=== PATIENT | female | born 1990 | race Caucasian/White ===

== ENCOUNTER 2023-11-18 08:00 | Outpatient (RCR) | payer MEDICAID, SELFPAY ==
--- NOTE | 2023-11-18 10:10 | BH.SGPN.GN ---
Behaviors/Verbalizations/Mental Status: [Patient was alert and oriented, casually dressed and groomed. Eye contact was good, motor activity normal, speech within normal limits. Affect congruent, mood depressed. Thoughts linear, logical, no signs of hallucinations or delusions. ] Client Response/Progress/Benefit: [ Patient was engaged and open to the discussion and appeared to respond well to the group. Patient used active listening and gave feedback during group discussion. Patient identifies that setting boundaries is a form of self-care. Patient was engaged in the activity of identifying the reasons that setting boundaries is hard. Patient reported that its hard for her because of how it can feel embarrassing to set them in the first place. Patient appeared to benefit from increasing awareness of healthy strategies to improve communication. Patient will continue IOP treatment to improve daily functioning, emotion management, and prevent decompensation] Narrative Note: []
--- NOTE | 2023-11-18 10:37 | BH.MDN ---
Multi-Disciplinary Note Note 45-min Individual: Time Started:: 08:45 Date: 11/18/23 Purpose of session/treatment goals addressed:: The purpose of this session was to gather information on client's mental health hx, current stressors, symptoms, and treatment goals. Another goal was to build rapport. Eye Contact:: Good Motor Activity:: Appropriate Appearance:: Neat and Casual Speech:: Appropriate Mood:: Anxious and Depressed Affect:: Congruent Thoughts:: Linear, Logical and No evidence of hallucinations/delusions noted Staff Interventions:: motivational interviewing, rapport building, strengths perspective, treatment planning, completed risk assessment / safety planning (completed CSSR-S assessment) and goal setting Client Response:: Client responded well to session, open to meeting with therapist. Client stated that she was referred by a prior [facility] client who is friend?s with her mother. Client stated that she moved back to [place] from [place] in early October to live with her parents due to worsening sx of depression and anxiety impacting ability to function at baseline. Client shared she has been struggling with various physical health issues for several years, following getting COVID in 2020. Reports digestive issues, nausea, and extreme fatigue following her illness which impeded her ability to function socially and occupationally. Client reports that around that time she had been experiencing increased relationship tension involving her partner?s ex-girlfriend and child?s mother. This continued to escalate and client did not feel her partner was doing enough to advocate for her, resulting in the relationship ending in early 2022. Client reports that following the break-up she experienced the end of a friendship, as well as the of two other close friends. Shared that her depressive sx and fatigue worsened to the point of losing her job, not really leaving the house and relying on substances to provide energy and motivation to complete daily responsibilities and function at baseline. Client stated her function worsened to the point she felt she would need the support of family and returned to live with her parents. Client reports she had been working with a mindfulness counselor and it was somewhat helpful, but she felt she needed more intensive care. Client is connected with psychiatry services through [facility]. Client noted experiencing hopelessness, panic, grief, sadness and crying spells, low motivation, anhedonia, poor memory and concentration, low energy, some guilt, and anxiety. Pt shared she would like to feel more in control and capable of navigating her thoughts rather than feeling consumed by them, get back into activities she enjoys, as well as better understand and manage sx of depression and anxiety. Risks/Concerns:: Client denies any suicidal ideations, plan, or intent as of 11/18/23. Client is future oriented and her daughter and fikeo? are protective factors. Progress Toward Goals/Plan:: First day in IOP tx therefore no progress to note. Client shared she would like to learn skills to better manage and understand her sx of depression and anxiety. Client has participated counseling in the past but no groups, she is connected with outpatient psychiatry. Client endorses a depressed mood, panic, some guilt, negative self-talk, grief, anhedonia, low motivation, fatigue, and poor concentration. Client's symptoms have been impacting her relationships and occupational functioning. Will continue IOP tx to prevent decompensation, reduce intensity of symptoms, and prevent decompensation. Time Stopped:: 09:30
--- NOTE | 2023-11-18 11:15 | BH.SGPN.GN ---
Behaviors/Verbalizations/Mental Status: []Pt alert and oriented, neatly dressed and groomed. Eye contact good. Motor activity appropriate. Speech within normal limits. Affect congruent, mood anxious. Thoughts linear, logical, no signs of hallucinations or delusions. Client Response/Progress/Benefit: []Pt responded well to session AEB listening attentively to peers and providing input throughout. Pt attentive during psychoeducation on the different boundary styles. Pt identified being porous and having a hard time saying no to things which leads to burnout. Pt was given a handout on strategies for healthy boundary setting. Identified wanting to work on delaying herself before immediately responding so she can take her time to decide before answering. Seemed to benefit from increased awareness of boundary styles and strategies to improve setting boundaries. Will continue IOP tx to prevent decompensation, improve daily functioning, and increase distress tolerance skills. ? Narrative Note: []
--- NOTE | 2023-11-20 09:05 | BH.SGPN.GN ---
Behaviors/Verbalizations/Mental Status: [Patient was alert and oriented, appropriately dressed and groomed. Eye contact was good, motor activity normal, speech within normal limits. Affect congruent, mood down. Thoughts linear, logical, no signs of hallucinations or delusions. Reviewed Patients symptom tracker and the patient reports depressed mood, anxiety/panic attacks, agitation/irritability/anger, self-harm urges, and thoughts/risk of suicide within normal limits.?] Client Response/Progress/Benefit: [Patient was engaged and open to the discussion. Patient reported her mood to be ?Down?.?Patients first win is that she has been adjusting to her new sleeping schedule and getting up before 11am. Patients second win is that she is trying to be more physically active and went swimming yesterday to exercise. Patients stressor is that she is currently living with her parents and so is her brother. She stated that her and her brother get along but that her brother is a partier, and she isn?t so setting those boundaries has been difficult. Patient was interactive and respectful with other group members about their mental wins and stressors. Patient benefited from the discussion by listening to feedback and giving input on her peer?s stressors and mental health wins. Patient will continue with IOP treatment to help develop healthy skills, promote mood stability, and improve distress tolerance. ?] Narrative Note: []
--- NOTE | 2023-11-20 09:10 | BH.NA ---
Physical Data Vital Signs Pulse Rate: 87 Blood Pressure: 119/84 Height/Weight Height: 1.8 m Weight:: 65.771 kg Weight in Pounds: 145.0 lbs Current Medication Compliance Medication Compliance Do you take your medication as prescribed?: Yes Nutritional History Appetite Nutritional Instructions: Describe your appetite:: Fair Additional nutritional information:: Client states she has lost 10-15lbs in the last couple of months due to a decreased appetite/ongoing nausea and vomiting issues. Functional Assessment Sleep Pattern Describe any problems with sleeping: Client states she sleeps about 8-12 hours per night. Sensory/Communication Assess Communication Problems Do you have difficulty understanding what people are saying?: No Medical Problems/History Gastrointestinal Conditions Gastrointestinal: Other (See comments) (has been having some blood with bowel movements- had a colonoscopy that did not show anything, client believes they are internal hemorrhoids and states they are bleeding less. Client does complain of ongoing N/V and indigestion issues since having COVID in 2019- says PCP will order endo if ongoing) Surgical History Surgical History Have you had any surgeries? If so, list type and date:: Yes (LASIK eye surgery) Substance Abuse Substance Abuse Please describe substance abuse in the last 30 days:: Client reports occasional alcohol use. Client states she has a history of smoking cigarettes, but currently only vapes but is trying to quit. Client has ongoing use of Kratom, stating she started using it on a daily basis after having COVID in 2019 because it helped give her energy, and that she quit using it for about 6 months but has been using it daily again since June 2023. Client states she went from using 9gm daily down to 6gm daily as she is trying to wean herself off. Client also uses marijuana daily, but states she is trying to stop this as well. Client states she has coffee a few times a week, but not on a daily basis. Mental Status Summary Mental Status Significant Findings/Observations on Appearance and Mood:: Client is alert and oriented x 4. Client is casually groomed with good hygiene. Client is cooperative with assessment. Client makes good eye contact. Client's voice has normal rate and volume. Client appears mildly anxious during assessment and has a somewhat restricted affect. Client makes logical associations and has normal processing. Client denies delusions/hallucinations. Client denies SI. Suicide Assessment Suicidal Ideation Are you currently or have you been suicidal in the past?: No Suicidal Intentional Rating Scale (SIRS): No suicidal thoughts (past or present) Physician Notification Past Psychiatric History MH Treatment Hx Past Psychiatric Medications:: Wellbutrin (recently stopped taking), Klonopin (at age 21 for panic attacks), Lexapro Age of first mental health symptoms: Client states she first took Klonopin around age 21 for anxiety. Describe (age, circumstance, etc) any past hospitalizations: None. Current providers for mental health treatment (counselor, psychiatrist, correctional casework specialist, etc.): [facility] Fall Risk Assessment Age Age: Less than 60 Mental Status Mental Status: Willing & able to ask for assistance when needed Physical Status Physical Status: No problems Impairments Impairments: None Elimination Elimination: Continent AND independent Gait or Balance Gait or Balance: Walks independently Hx of Falls History of falls in the past 6 months: No known history Medications/Substances Psychotropics:: Antidepressants and Antipsychotics Medications/substances used within the past 24 hours or ordered to administer: 1-2 of the medications/substances listed above Total Score Total Points:: 1 RN Summary of Impressions Impressions Recommendations Impressions: Psychiatric Issues: 1. Major depressive disorder, recurrent, severe without psychosis 2. Generalized anxiety disorder 3. Primary support and financial issues 4. Marijuana and Kratom use disorders Level of Care How do the client's current symptoms and functional deficits support need for this level of care?: Client was referred to IOP by her PCP after recently moving back to [place] in the last month. Client states she has been dealing with ongoing medical issues since having COVID in 2019 that have been a big stressor for her. Client has been having issues with nausea/vomiting, indigestion, constipation and fatigue. Client also gets tearful when she talks about a three year relationship ending in 2022, and the of 2 of her close friends in 2022 after that. Client reports isolating herself, staying in bed for long periods of time which results in a decrease in ADL's. Client states panic attacks have been an ongoing issue for her since having COVID, but states she has not had a panic attack in the last month since moving in with her parents. Client denies SI. IOP will promote gains and prevent further decompensation while providing social support and skills training.
[2023-11-20 09:32] VITALS: BP 119/84; PULSE 87
--- NOTE | 2023-11-20 10:15 | BH.SGPN.GN ---
Behaviors/Verbalizations/Mental Status: [] Client alert and oriented, casually dressed and groomed. Eye contact good. Motor activity appropriate. Speech within normal limits. Affect congruent, mood euthymic. Thoughts linear, logical, no signs of hallucinations or delusions. Client Response/Progress/Benefit: [] Client responded well to session AEB sharing and listening attentively to others. Group provided examples of benefits of having social support, including: ability to process emotions with, security, and confidence. Client also participated in group discussion regarding the barriers to accessing support including personal examples like: toxic people, lack of communication, and over using certain supports. Client participated in experiential activity illustrating the impact communication, boundaries, and patience play in creating healthy support systems. Client appeared to benefit from increased knowledge of the benefits of social support and greater self-awareness. Will continue IOP tx to challenge negative thought patterns, reduce negative self-talk, and prevent decompensation. Narrative Note: []
--- NOTE | 2023-11-20 10:43 | BH.MTP ---
Master Treatment Plan Patient Information Program Physician:: Dr. Cristiana Mcclure Primary Therapist:: FARHANA Kaminski Psychiatric Diagnoses Psychiatric Diagnoses:: 1. Major depressive disorder, recurrent, severe without psychosis 2. Generalized anxiety disorder 3. Primary support and financial issues 4. Marijuana and Kratom use disorders Diagnosis Code(s):: F33.2 Estimated LOS Estimated LOS (in weeks):: 6 Problem/Goal #1 Problem/Goal #1 Stated Goal:: Pt will decrease intensity, duration, and frequency of anxiety so that daily functioning is not impaired. Description of Barriers: Pt has ongoing stressors related to grief and physical health issues. Hx of substance dependence and is currently trying to wean off of all substances. Pt has history of trauma. Loss of motivation and enjoyment per pt. Functional Impact: The patient is a 33-year-old female with a history of depression and anxiety accompanied by nausea and vomiting, chronic fatigue, low energy which she feels is due to possibly having long COVID. Her nausea and vomiting have improved on Zofran recently. However, her other symptoms have worsened in the past year to the point of not being able to work and needing to move back to [place] to stay with her parents. 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 She was referred to the [facility] by her family due to worsening sx. Patient uses daily marijuana and Kratom but is trying to wean these. Current stressors include financial stress, recent of a friend, her above health issues and break-up 1 year ago of a boyfriend of 3 years. For primary support she has her mother. She denies any history of self-harm. She endorses sadness, crying spells, hopelessness, worthlessness, guilt, lack of motivation, isolation, anhedonia, low energy, fatigue, decreased concentration. She is sleeping 10 to 12 hours a day and is sleeping a lot but feels exhausted. She admits to passive thoughts of but says she has not had them since 1 week ago. She denies suicidal ideation, homicidal ideation, plan for suicide, hallucinations, delusions or symptoms of feliberto ever. She is a worrier by nature and ruminates negatively. She has panic attacks on occasion which with the most recent one occurring 3 weeks ago. She denies OCD, eating disorder, trauma, PTSD, seizure or head trauma. Due to current symptom severity and acuity, pt is recommended IOP level of care. Objectives Objective #1: Stated Objective: Pt will identify 2-3 anxiety triggers and 2 coping skills to use when feeling anxious to manage anxiety as shown by decreasing DSM-5 scores for anxiety. Interventions: Therapist will provide education on anxiety, avoidance behaviors, and maintenance cycles. Therapist will help pt explore personal symptoms and warning signs of anxiety. Therapist will teach pt coping skills to improve emotional regulation, mindfulness, and distress tolerance to help pt cope with anxiety in the moment. Discharge Criteria: Pt will have accomplished this goal when can identify at least 2 triggers and report using 2 coping skills to manage anxiety. Additionally, pt will have accomplished this goal when DSM-5 scores show a reduction for anxiety. Target Date: 01/01/24 Review Date: 12/18/23 Objective #2: Stated Objective: Client will identify 2-3 cognitive distortions or mistaken beliefs that lead to rumination and learn 2-3 ways to manage these thoughts to reduce symptoms. Interventions: Therapist will provide education on the most common cognitive distortions and teach client the connection between thoughts, emotions, and feelings. Therapist will use CBT and DBT techniques to help client gain awareness of thinking errors and learn how to more effectively handle negative thoughts. Discharge Criteria: Client will be able to identify and replace distorted thinking patterns using at least 2 interventions learning in tx. Pt will report improve ability to manage anxious thoughts as a result. Target Date: 01/01/24 Review Date: 12/18/23 Problem/Goal #2 Problem/Goal #2 Stated Goal:: Pt will increase mood stability by reducing hopelessness, depressed mood, and negative thinking patterns caused by MDD. Description of Barriers: Pt has ongoing stressors related to grief and physical health issues. Hx of substance dependence and is currently trying to wean off of all substances. Pt has history of trauma. Loss of motivation and enjoyment per pt. Functional Impact: The patient is a 33-year-old female with a history of depression and anxiety accompanied by nausea and vomiting, chronic fatigue, low energy which she feels is due to possibly having long COVID. Her nausea and vomiting have improved on Zofran recently. However, her other symptoms have worsened in the past year to the point of not being able to work and needing to move back to [place] to stay with her parents. 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 She was referred to the [facility] by her family due to worsening sx. Patient uses daily marijuana and Kratom but is trying to wean these. Current stressors include financial stress, recent of a friend, her above health issues and break-up 1 year ago of a boyfriend of 3 years. For primary support she has her mother. She denies any history of self-harm. She endorses sadness, crying spells, hopelessness, worthlessness, guilt, lack of motivation, isolation, anhedonia, low energy, fatigue, decreased concentration. She is sleeping 10 to 12 hours a day and is sleeping a lot but feels exhausted. She admits to passive thoughts of but says she has not had them since 1 week ago. She denies suicidal ideation, homicidal ideation, plan for suicide, hallucinations, delusions or symptoms of feliberto ever. She is a worrier by nature and ruminates negatively. She has panic attacks on occasion which with the most recent one occurring 3 weeks ago. She denies OCD, eating disorder, trauma, PTSD, seizure or head trauma. Due to current symptom severity and acuity, pt is recommended [facility] level of care. Objectives Objective #1: Stated Objective: Pt will learn and utilize 2-3 healthy coping strategies to better manage depressive symptoms as shown by a reduced DSM-5 scores for depression. Interventions: Through group and individual sessions, therapist will help pt identify triggers and warning signs of depression and emotional dysregulation including emotional, physical, and behavioral changes. Therapist will teach pt various coping skills to manage her symptoms and give pt tangible resources to use to regulate emotions. Therapist will use cognitive restructuring techniques and help pt gain awareness of negative thoughts that reinforce guilt and depression. Therapist will provide psychoeducation on maintenance cycles and help pt learn ways to break unhealthy maintenance cycles. Therapist will help pt incorporate behavioral activation and assist pt in setting SMART goals. Discharge Criteria: Pt will have met this goal when can report learning and using at least 2 coping skills to manage depressive symptoms. Additionally, pt will have met this goal when depressive symptoms have decreased on the DSM-5 Target Date: 01/01/24 Review Date: 12/18/23 Objective #2: Stated Objective: Pt will identify at least 2-3 negative self-talk messages used to reinforce negative core beliefs and replace thoughts with balanced, realistic messages. Interventions: Therapist will help pt identify distorted, negative beliefs about self and replace with more realistic, affirmative messages. Therapist will use CBT and DBT to help pt increase insight to the connection between thoughts, emotions, and behaviors. Therapist will encourage pt to practice thought challenging. Discharge Criteria: Pt will have achieved this goal when can verbalize at least 2 cognitive distortions and effectively replace those thoughts with affirmative messages. Target Date: 01/01/24 Review Date: 12/18/23
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
--- NOTE | 2023-11-20 11:10 | BH.SGPN.GN ---
Behaviors/Verbalizations/Mental Status: [] Client alert and oriented, casually dressed and groomed. Eye contact good. Motor activity appropriate. Speech within normal limits. Affect congruent, mood euthymic. Thoughts linear, logical, no signs of hallucinations or delusions. Client Response/Progress/Benefit: [] Client was an active participant throughout AEB contributing to discussion, providing personal examples, and taking notes. Client processed emotions felt in the activity and how they coped in the moment. Client provided input during discussion on the types of support our supports can provide. Client able to identify current support system and barriers that get in the way of using supports by drawing out their own support net. Client reported after identifying what type of supports they receive; they gained awareness that they could benefit from more emotional and social supports. Client identified steps to achieve this by go to events they enjoy, reaching out to friends, and set aside time for self to participate in more activities. Client shared increasing emotional and social supports will help keep them from isolating and outthinking. Client seemed to benefit from identifying the type of support client needs to work on improving. Client recommended to continue IOP tx to increase self worth, increase positive thought patterns, and increase emotional regulation skills. Narrative Note: []
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
--- NOTE | 2023-11-20 12:56 | BH.DR.ITP ---
Initial Treatment Plan Patient Information Visit Information: ADMISSION DATE: EXPECTED LOS: 4-6 weeks Problems/Symptoms Problem #1:: Depression Symptom:: Sadness, hopelessness, worthlessness, guilt, decreased concentration, anhedonia, hypersomnia, fatigue, passive thoughts of recent Problem #2:: Anxiety Symptom:: Worry, rumination, panic attacks
--- NOTE | 2023-11-22 09:03 | BH.SGPN.GN ---
Behaviors/Verbalizations/Mental Status: Patient was alert and oriented, appropriately dressed and groomed. Eye contact was fair, motor activity normal, speech within normal limits. Affect constricted, mood anxious. Thoughts linear, logical, no signs of hallucinations or delusions. Reviewed Patients symptom tracker and denies suicidal ideation, plan, or intention. Client Response/Progress/Benefit: Patient was engaged and open to the discussion. Pt stated current stressor is having chronic fatigue and being nauseous yesterday. Pt reported she has been struggling with nausea which keeps her from wanting to eat. Pt stated a mental health win as being able to eat something yesterday. Pt reported additional mental health positive as pushing self to do something when didn't want to. Patient benefited from the discussion by listening to feedback and giving input on her peer?s stressors and mental health wins. Patient will continue with IOP treatment to improve distress tolerance, increase healthy coping skills, and prevent decompensation.
--- NOTE | 2023-11-22 10:05 | BH.SGPN.GN ---
Behaviors/Verbalizations/Mental Status: [] Eye contact is good. Motor activity is appropriate. Appearance is casual. Speech is Appropriate. Mood is anxious. Affect is congruent. Thoughts are linear and logical. No evidence of psychosis. Client Response/Progress/Benefit: [] Pt was an active participant in activity and taking notes during group discussion. Attentive during psychoeducation and interactive discussion on coping skills, why people use unhealthy coping skills, how to replace unhealthy coping skills, and internal vs external coping skills. Group came up with list of negative coping skills including not asking for help, avoidance, isolating, sleeping, shopping, substance use, and several others. Group discussed the effects of how negative coping skills can impact mental health in a negative way. Participated during experiential activity and was able to related the activity to group topic regarding the benefits of developing strong internal and external support system. Benefited from increased understanding of unhealthy coping skills and the need for developing healthy internal and external coping skills. Will continue in IOP to prevent decompensation, stabilize mood, increase health coping skills, and improve functioning. Narrative Note: []
--- NOTE | 2023-11-22 11:18 | BH.SGPN.GN ---
Behaviors/Verbalizations/Mental Status: []Pt alert and oriented, casually dressed and groomed. Eye contact good. Motor activity appropriate. Speech within normal limits. Affect congruent, mood anxious and depressed. Thoughts linear, logical, no signs of hallucinations or delusions. Client Response/Progress/Benefit: []Pt responded well to session, taking notes and contributing when prompted. Group discussed the different categories of coping skills which included distraction, emotional release, grounding, self-love, and thought challenging.? Pt participated in creating a coping skills ?menu? from the five categories of coping skills. Pt's coping skill menu included: reading, journaling, yoga, setting boundaries with self, and pro/con list. Appeared to benefit from increasing repertoire of healthy coping skills. Will continue IOP tx to increase repertoire and use of healthy coping skills, promote mood stability, and prevent decompensation. Narrative Note: []
--- NOTE | 2023-11-25 09:05 | BH.SGPN.GN ---
Behaviors/Verbalizations/Mental Status: [ Patient was alert and oriented, appropriately dressed and groomed. Eye contact was good, motor activity normal, speech within normal limits. Affect congruent, mood anxious. Thoughts linear, logical, no signs of hallucinations or delusions. Reviewed Patients symptom tracker and the patient reports depressed mood, anxiety/panic attacks, agitation/irritability/anger, self-harm urges, and thoughts/risk of suicide within normal limits.] Client Response/Progress/Benefit: [Patient was engaged and open to the discussion. Patient reported her mood to be ?anxious?. Patients stressor is that she had facetimed one of her friends from [place] over the weekend and it made her ?depressed?. Patient stated this was because she misses her friends in [place]. Patients first win is that she walked around her neighborhood yesterday despite it being cold outside. Her second win was that she hung out with her brother instead of isolating. Patient was interactive and respectful with other group members about their mental wins and stressors. Patient benefited from the discussion by listening to feedback and giving input on her peer?s stressors and mental health wins. Patient will continue with IOP treatment to help develop healthy skills, promote mood stability, and improve distress tolerance. ] Narrative Note: []
--- NOTE | 2023-11-25 10:15 | BH.SGPN.GN ---
Behaviors/Verbalizations/Mental Status: []Pt alert and oriented, causally dressed and groomed. Eye contact fair. Motor activity appropriate. Speech within normal limits. Affect constricted, mood anxious. Thoughts linear, logical, no signs of hallucinations or delusions. Client Response/Progress/Benefit: [] Pt engaged in group session AEB listening to others, taking notes throughout, and nodding head to others comments. Group attentive during psychoeducation about emotion regulation and dysregulation. Appeared to connect with scenarios reviewed in group on emotion regulation vs dysregulation. Engaged in activity, reporting it was helpful for them to be able to communicate and even when they felt a little anxious they could work through it. ?Pt benefited from session by gaining an increased understanding on the importance of managing emotions. Pt to continue IOP to prevent decompensation, improve distress tolerance skills, and reduce the use of unhealthy coping skills. ??? Narrative Note: []
--- NOTE | 2023-11-25 11:10 | BH.SGPN.GN ---
Behaviors/Verbalizations/Mental Status: []Pt alert and oriented, casually dressed and fairly groomed. Eye contact fair. Motor activity appropriate. Speech within normal limits. Affect congruent, mood anxious. Thoughts linear, logical, no signs of hallucinations or delusions. Client Response/Progress/Benefit: [] Pt engaged in session AEB Pt listening attentively to peers and providing input. Attentive during psychoeducation on 4 zones of regulation. Pt able to identify feelings and behaviors for each zone. Pt identified coping skills one can use to support self in each zone. Identified one skill from each zone can practice which included: walking, GLAD journal, and grounding tools. Benefited from increased education on zones of regulation or stages of alertness for emotions and healthy coping skills to use for each zone. Will continue IOP tx to improve daily functioning, improve healthy coping, and prevent decompensation.
--- NOTE | 2023-11-27 09:05 | BH.SGPN.GN ---
Behaviors/Verbalizations/Mental Status: [Patient was alert and oriented, appropriately dressed and groomed. Eye contact was good, motor activity normal, speech within normal limits. Affect congruent, mood content. Thoughts linear, logical, no signs of hallucinations or delusions. Reviewed Patients symptom tracker and the patient reports depressed mood, anxiety/panic attacks, agitation/irritability/anger, self-harm urges, and thoughts/risk of suicide within normal limits.] Client Response/Progress/Benefit: [Patient was engaged and open to the discussion. Patient reported her mood to be ?sad but optimistic?. Patients? stressor is that she has been dealing with grief of one of her friends from a few months ago. She had been wanting to reach out to this friend?s mom but didn?t think it was the right time. Patients win is that she finally did reach out to this friend?s mom, and she was invited to her celebration of life this summer. Patients second win is that she is trying to utilize her coping skills and reach out to old friends. Patient was interactive and respectful with other group members about their mental wins and stressors. Patient benefited from the discussion by listening to feedback and giving input on her peer?s stressors and mental health wins. Patient will continue with IOP treatment to help develop healthy skills, promote mood stability, and improve distress tolerance. ] Narrative Note: []
--- NOTE | 2023-11-27 10:10 | BH.SGPN.GN ---
Behaviors/Verbalizations/Mental Status: []Pt alert and oriented, casually dressed and groomed. Eye contact good. Motor activity appropriate. Speech within normal limits. Affect congruent, mood anxious and depressed. Thoughts linear, logical, no signs of hallucinations or delusions. Client Response/Progress/Benefit: [] Pt active participant AEB pt providing input throughout group discussion. Pt attentive during psychoeducation about defense mechanisms. Showed engagement during small group discussions and helped group identify which defense mechanisms were maladaptive, adaptive, or ?somewhere in the spencer.? Pt started to work with group on identifying how each defense mechanism can impact mental health and gave examples. Pt was quiet but engaged during small group discussion, shared connecting with anticipation and suppression. ?Seemed to benefit from gaining awareness about the different defense mechanisms. Pt to continue IOP tx to prevent decompensation, improve daily functioning, and increase mood stability. ? Narrative Note: []
--- NOTE | 2023-11-27 11:10 | BH.SGPN.GN ---
Behaviors/Verbalizations/Mental Status: []Pt alert and oriented, neatly dressed and groomed. Eye contact good. Motor activity appropriate. Speech within normal limits. Affect congruent, mood anxious. Thoughts linear, logical, no signs of hallucinations or delusions. Client Response/Progress/Benefit: [] Pt responded well to session, participating in activity and small group discussion. Group reviewed the rest of the defense mechanisms and discussed how these are adaptive, maladaptive, or somewhere in the spencer. Pt participated in the experiential activity which encouraged pts to draw a castle that portrayed their different defense mechanisms. Pt's defense mechanisms included humor and rationalization. Pt gained awareness that her use of rationalization keeps pt stuck because ?I justify any reason to stay in bed.? Pt listened to shift manager teach different skills to help pt?s cope with or change their defense mechanisms. Pt appeared to benefit from gaining insight to the different defense mechanisms and learning coping skills. Pt will discharge from IOP tx to prevent decompensation, improve daily functioning, and gain healthy coping skills. ? Narrative Note: []
--- NOTE | 2023-11-27 14:51 | BH.MDN ---
Multi-Disciplinary Note Note 30-min Individual: Time Started:: 12:00 Date: 11/27/23 Purpose of session/treatment goals addressed:: Purpose of session was to address treatment plan goal #1 obj #1 Eye Contact:: Good Motor Activity:: Appropriate Appearance:: Casual Speech:: Appropriate Mood:: Anxious and Depressed Affect:: Congruent Thoughts:: Linear, Logical and No evidence of hallucinations/delusions noted Staff Interventions:: motivational interviewing, psychoeducation on: (behavior activation), rapport building, strengths perspective and taught coping skills Client Response:: Pt responded well to session, actively engaged and openly discussed current symptoms and stressors throughout. Reports enjoying the IOP program thus far and finding the shared experience to be beneficial. Pt discussed struggles with vulnerability which has prevented her from opening up more in groups; however, identified making progress with doing so today. Discussed feeling the Vraylar has been helping to improve overall energy levels and motivated, but she continues to struggle with anxiety in the evenings. Pt discussed feeling more hopeful for her future and taking steps to begin readjusting to being in [employer] again. Shared plans to acquire her [employer] drivers license this afternoon and look into transferring her [employer] [place] license as well. Discussed ongoing issues with lack of enjoyment and difficulties with ?not knowing what to do with myself?. Shared feeling she fills her days with various activities but feels she cannot connect or truly be present when engaging in them. Able to identify not feeling she has a true sense of purpose. 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 Pt does not feel her mental health is at a place where she would be ready to pursue employment at this time. Pt expressed interest in volunteer work to feel she is contributing to something greater than herself and identified plans to look into volunteering with [employer]. Additionally, pt did well to connect her increased anxiety in the afternoon with media consumption as much of the content she is consuming has been related to international tragedies and conflict. Goal to reduce time on TikTok during the evenings. Risks/Concerns:: Denies any suicidal ideation, plan, or intent as of this date 11/27/23. Progress Toward Goals/Plan:: Pt reports feeling connected to fellow group participants, improved engagement and reduced anxiety about the groups overall. Shared finding the information and shared experience to be helpful and enjoyable. Pt reports improved hopefulness for the future and denies any suicidal thoughts since before admission. Continues to endorse anxiety, grief, low motivation, apathy, difficulties concentrating and becoming easily overwhelmed. Pt would benefit from continuing the IOP program to further improve understanding and implementation of coping skills, increase mood stability, reduce anxiety, and prevent decompensation. Time Stopped:: 12:27
--- NOTE | 2023-11-29 09:00 | BH.SGPN.GN ---
Behaviors/Verbalizations/Mental Status: [ Patient was alert and oriented, appropriately dressed and groomed. Eye contact was good, motor activity normal, speech within normal limits. Affect incongruent, mood content. Thoughts linear, logical, no signs of hallucinations or delusions. Reviewed Patients symptom tracker and the patient reports depressed mood, anxiety/panic attacks, agitation/irritability/anger, self-harm urges, and thoughts/risk of suicide within normal limits.] Client Response/Progress/Benefit: [Patient was engaged and open to the discussion. Patient reported her mood to be ?irritated?. Patient stated her stressor is that she is very nauseous today and it is irritating her. Patients first win is that she came to group today although she didn?t feel well. Patients second win is that she reached out to a cousin to hang out with this weekend, so she doesn?t isolate herself. Patient was interactive and respectful with other group members about their mental wins and stressors. Patient benefited from the discussion by listening to feedback and giving input on her peer?s stressors and mental health wins. Patient will continue with IOP treatment to help develop healthy skills, promote mood stability, and improve distress tolerance. ] Narrative Note: []
--- NOTE | 2023-11-29 10:05 | BH.SGPN.GN ---
Behaviors/Verbalizations/Mental Status: [] Eye contact is good. Motor activity is appropriate. Appearance is casual. Speech is Appropriate. Mood is depressed. Affect is congruent. Thoughts are linear and logical. No evidence of psychosis. Client Response/Progress/Benefit: [] Pt receptive of session, actively engaged throughout AEB taking notes, providing input, and contributing in small group discussion. Appeared to connect with group topic of automatic thoughts and cognitive distortions and the impact of thought patterns on mental health, coping behaviors, and relationships. This particular group is very heavy on psychoeducation however pt appeared to connect with distortions and how they can impact functioning. Pt appeared to benefit from gaining insight on distorted thinking patterns and how this impacts overall mental health. Will continue IOP to prevent decompensation, increase healty coping,and improve functioing to return to work. ? Narrative Note: []
--- NOTE | 2023-12-02 09:05 | BH.SGPN.GN ---
Behaviors/Verbalizations/Mental Status: [Patient was alert and oriented, appropriately dressed and groomed. Eye contact was good, motor activity normal, speech within normal limits. Affect congruent, mood content. Thoughts linear, logical, no signs of hallucinations or delusions. Reviewed Patients symptom tracker and the patient reports depressed mood, anxiety/panic attacks, agitation/irritability/anger, self-harm urges, and thoughts/risk of suicide within normal limits.] Client Response/Progress/Benefit: [Patient was engaged and open to the discussion. Patient reported her mood to be ?grateful?. The patient reported that both of her mental health wins and stressors go together because of an event that happened yesterday. Patient reported that she went for a drive yesterday to keep herself from isolating. However, the patient said her tire popped and she was in a place where she had no signal. Patient stated typically this would have made her hysterical and would have cried. Patient said that instead she was able to keep herself calm and walk half a mile to call her parents to come help. She said while she waited, the sun was going down which made her nervous at first but then was able to appreciate the sunset which relaxed her. Patient was interactive and respectful with other group members about their mental wins and stressors. Patient benefited from the discussion by listening to feedback and giving input on her peer?s stressors and mental health wins. Patient will continue with IOP treatment to help develop healthy skills, promote mood stability, and improve distress tolerance. ] Narrative Note: []
--- NOTE | 2023-12-02 10:15 | BH.SGPN.GN ---
Behaviors/Verbalizations/Mental Status: [] Eye contact is good. Motor activity is appropriate. Appearance is casual. Speech is Appropriate. Mood is depressed. Affect is congruent. Thoughts are linear and logical. No evidence of psychosis. Client Response/Progress/Benefit: [] Pt was engaged and an active participant in group discussions. Attentive during psychoeducation and participated in group activity. Group discussed what contributes to a person?s perspective and how perspective can positively or negatively impact mental health treatment. Participated in group discussion on things that can interfere with perspective which group identified as; mood, physical state, past experiences, relationships, anger, current stressors, finances, and several others. Pt appeared to benefit from increasing awareness of different perspectives and how they can affect mental health. Pt will continue IOP treatment to prevent decompensation, stabilize mood, increase healthy coping, and to improve functioning. Narrative Note: []
--- NOTE | 2023-12-02 11:15 | BH.SGPN.GN ---
Behaviors/Verbalizations/Mental Status: []Pt alert and oriented, casually dressed and groomed. Eye contact good. Motor activity appropriate. Speech within normal limits. Affect congruent, mood content and anxious. Thoughts linear, logical, no signs of hallucinations or delusions. Client Response/Progress/Benefit: []Pt was attentive and contributed to group discussion. Pt worked with group to identify strategies that can help with challenging negative perspective. Pt completed strengths exploration worksheet, identifying love, humor, spirituality, empathy, and creativity as personal strengths. Pt able to acknowledge how these strengths are helping pt and can continue to help pt in mental health journey. Pt identified wanting to work on applying grounding techniques when faced with stressors. Benefited from identifying personal strengths and strategies for enhancing use of identified strengths. Pt will continue IOP tx to continue working on application of anxiety management skills, improve mood stability, and prevent decompensation. Narrative Note: []
--- NOTE | 2023-12-04 09:00 | BH.SGPN.GN ---
Behaviors/Verbalizations/Mental Status: [Patient was alert and oriented, appropriately dressed and groomed. Eye contact was good, motor activity normal, speech within normal limits. Affect congruent, mood content. Thoughts linear, logical, no signs of hallucinations or delusions. Reviewed Patients symptom tracker and the patient reports depressed mood, anxiety/panic attacks, agitation/irritability/anger, self-harm urges, and thoughts/risk of suicide within normal limits.] Client Response/Progress/Benefit: [Patient was engaged and open to the discussion. Patient reported her mood to be ?happy?. Patients stressor is related to her flat tire she received over the weekend. She stated that she ended up needing to replace all her tires because her tires were not good for [place] weather. Both of patients identified wins was that although she had to get new tires, she did not ?freak out? when she was told, and her parents helped her pay for the tires. Patient was interactive and respectful with other group members about their mental wins and stressors. Patient benefited from the discussion by listening to feedback and giving input on her peer?s stressors and mental health wins. Patient will continue with IOP treatment to help develop healthy skills, promote mood stability, and improve distress tolerance. ] Narrative Note: []
--- NOTE | 2023-12-04 10:10 | BH.SGPN.GN ---
Behaviors/Verbalizations/Mental Status: [] Eye contact is good. Motor activity is appropriate. Appearance is casual. Speech is Appropriate. Mood is anxious, euthymic. Affect is congruent. Thoughts are linear and logical. No evidence of psychosis. Client Response/Progress/Benefit: [] Pt was an active and attentive participant throughout. Participated in and was engaged during experiential activity. Able to relate activity to group topic of FOF. Engaged during interactive discussion on what failure means to the group in which peers identified and defined failure. Group was able to identify impact of fear of failure on mental health identifying that it can cause isolation, procrastination, self-sabotage, and negative self-talk?. Pt connected fear of failure with a fixed mindset, noting it can reinforce unrealistic expectations of self. Attentive during interactive discussion on the role that FOF plays in mental wellness, depression, anxiety, and growth. Benefited from increased awareness of how the role that FOF plays in mental health and decision-making. Will continue in IOP prevent decompensation, increase healthy coping, and to stabilize mood. Narrative Note: []
--- NOTE | 2023-12-04 11:15 | BH.SGPN.GN ---
Behaviors/Verbalizations/Mental Status: []Pt alert and oriented, neatly dressed and groomed. Eye contact good. Motor activity appropriate. Speech within normal limits. Affect congruent, mood euthymic. Thoughts linear, logical, no signs of hallucinations or delusions. Client Response/Progress/Benefit: [] Pt responded well to session, engaged in the experiential activity and attentive throughout group processing. Pt reported fear of failure has kept pt from finishing her education, making friends, applying for jobs, and quitting kratom. Pt completed fear of failure worksheet and was able to identify thoughts and behaviors that reinforce personal fear of failure including telling herself she is not smart enough, not setting goals, and mind-reading. Pt participated in group discussion regarding strategies to overcome fear of failure. Identified wanting to work on using positive self-talk and affirmations. Appeared to benefit from increased knowledge of strategies to combat fear of failure and gaining self-awareness. Pt will continue IOP tx to promote mood stability, reduce use of unhealthy coping skills, and improve daily functioning. ??? Narrative Note: []
--- NOTE | 2023-12-04 11:41 | PCM.BH.PN ---
Progress Note Progress Note: History of Present Illness/Interim History: The patient is a 33-year-old single female with a history of depression and anxiety, chronic fatigue, possible long COVID and nausea who is seen in follow-up at the [facility] behavioral health IOP. I last saw the patient 2 weeks ago and at that time no medication changes were made as they had been recently changed and her Vraylar had been added 2 weeks before I saw her. The patient has according to staff consistently attended them and remains engaged in the program and is making progress. The patient feels she is learning valuable skills to help deal with her mental health issues. She states that she feels much better. She has been really trying to wean her marijuana use and wean and discontinue her kratom. She has weaned the great time down to 3 g/day and is experiencing withdrawal symptoms including increased anxiety and tremor at times. Her energy level is much better now than 2 weeks ago and she is able to much more easily get out of bed. She is no longer needing the Zofran every day as her nausea has improved. She denies any passive thoughts of now. She still cries on occasion but denies suicidal ideation, homicidal ideation, plan for suicide, hallucinations, delusions. Current Psychiatric Medications: [] Vraylar 1.5 mg p.o. daily (x 4 weeks); Effexor XR 75 mg daily; Zofran 4 mg as needed and not needing it as often now. Mental Status Examination: [] The patient is a 33-year-old female who is known of normal weight and appears younger than stated age. She has a nose piercing and some light pink hair dye. She is ambulatory with a normal gait and has no psychomotor agitation or retardation. She is cooperative and pleasant during the interview. She is casually dressed and groomed with good hygiene. Eye contact is good and speech is normal rate and rhythm and fluent with no pressure. Mood is mildly depressed. Affect is full and normal. Thought process is goal-directed and organized. Thought content: The patient is hopeful for the future. There is no evidence of passive thoughts of , suicidal ideation, homicidal ideation, plan for suicide, hallucinations, delusions or symptoms of felib[place]. Reality testing is intact. Intelligence is above average. Judgment is intact. Insight good. Impulsivity moderate. Diagnoses: [] 1. Major depressive disorder, recurrent, severe without psychosis (improving) 2. Generalized anxiety disorder 3. Primary support and financial issues 4. Marijuana and kratom use disorders Plan: [] The patient will continue the IOP in behavioral health at [facility] as the structure, support, education and group therapy will hopefully prevent worsening of the patient's symptoms. She felt safe during the interview and if it anytime she does not feel safe she agrees to let us know or go to the emergency room. No medication changes were made today as the patient's symptoms are improving. She will continue to wean and discontinue her creatinine use and wean her marijuana use. She understands the risk of Kratom especially and he has insight into the need to wean. She will continue to follow-up with her outpatient providers and I will see the patient in follow-up in 2 to 3 weeks.
--- NOTE | 2023-12-04 15:31 | BH.MDN ---
Multi-Disciplinary Note Note 30-min Individual: Time Started:: 12:00 Date: 12/04/23 Purpose of session/treatment goals addressed:: To address ongoing symptoms of anxiety, specifically nighttime anxiety. As well as create behavior activation goals to continue to reduce depression. Eye Contact:: Good Motor Activity:: Appropriate Appearance:: Neat and Casual Speech:: Appropriate Mood:: Anxious and Dysthymic Affect:: Congruent Thoughts:: Linear, Logical and No evidence of hallucinations/delusions noted Staff Interventions:: motivational interviewing, CBT techniques, strengths perspective, goal setting and taught coping skills (progressive muscle relaxation) Client Response:: Pt responded well to session, actively engaged throughout. Reports having several positives as well as stressors over the past several days. Discussed following through with her goals to look into volunteering at [employer] and purchased a membership at the [employer] to try increasing physical activity. Continues to reports struggling with a lack or pleasure in daily activities and limited desire to engage in hobbies she used to enjoy. Reports feeling she is ?just going through the motions?. Noted ?I don?t feel like I really do anything all day, but I know that?s not true?. Connected with discussion on trying to more intentionally plan her daily activities the night before rather than doing them because it?s ?what I?m supposed to do?. Expressed interest in making a goal to explore new walking paths or connors in the area to have something new and exciting to look forward with, as well as identify an intention(such as gratitude, ect.) to focus on during her walks. Pt is also continuing to wean off of Kratom which may be impacting her dopamine levels and enjoyment while doing so. Does report sx of withdrawal and increased anxiety, specifically at nighttime. Pt reports her anxiety and depression are highest between the hours of 5-10pm, explaining she does not know what to do with herself and feels ?aimless?. Connected with discussion reviewing strategies to reduce nighttime anxiety. Reports plans to begin engaging in physical activity an hour prior to bedtime to reduce anxious energy. Additionally identified plans to journal about her day to begin reflecting on and giving herself credit for what she is doing daily. Plans to plan an intentional activity for the next day as well. Risks/Concerns:: Denies any suicidal ideation, plan, or intent as of this date 12/05/23. Progress Toward Goals/Plan:: Pt continues to report an overall improvement in her mental health and ability to cope with unexpected stressors or anxiety triggers. She is taking steps to actively improve self-care, ability to manage anxiety, and increase her sense of purpose throughout the day. Reports plans to begin volunteering with [employer] which pt feels will reduce restlessness and increase daily purpose. Pt has continued to make progress in reducing overall substance use as well. Pt does continue to struggle with anxiety, becoming easily overwhelmed, low motivation, and apathy. Pt would benefit from continuing the IOP program to further promote application of coping skills, further improve mood stability, reinforce behavior activation skills, and prevent decompensation. Time Stopped:: 12:30
--- NOTE | 2023-12-06 09:00 | BH.SGPN.GN ---
Behaviors/Verbalizations/Mental Status: [Patient was alert and oriented, appropriately dressed and groomed. Eye contact was good, motor activity normal, speech within normal limits. Affect congruent, mood content. Thoughts linear, logical, no signs of hallucinations or delusions. Reviewed Patients symptom tracker and the patient reports depressed mood, anxiety/panic attacks, agitation/irritability/anger, self-harm urges, and thoughts/risk of suicide within normal limits.] Client Response/Progress/Benefit: [Patient was engaged and open to the discussion. Patient reported her mood to be ?excited?. Patients stressor is that she felt tired yesterday although she feels better today. She shared that the whole week she felt energetic so having a low yesterday was a ?bummer?. Patients first win is that she didn?t let those negative thought impact the way she has seen her progress. Patients second win is that she has been challenging herself to be thankful for the days she was energetic although she was tired yesterday. Patient was interactive and respectful with other group members about their mental wins and stressors. Patient benefited from the discussion by listening to feedback and giving input on her peer?s stressors and mental health wins. Patient will continue with IOP treatment to help develop healthy skills, promote mood stability, and improve distress tolerance. ] Narrative Note: []
--- NOTE | 2023-12-06 10:10 | BH.SGPN.GN ---
Behaviors/Verbalizations/Mental Status: []Pt alert and oriented, casually dressed and groomed. Eye contact fair. Motor activity appropriate. Speech within normal limits. Affect constricted, mood anxious. Thoughts linear, logical, no signs of hallucinations or delusions. Client Response/Progress/Benefit: []Pt participated in group discussion. Group worked together to identify benefits of healthy relationships which included improves mental health, encouragement, motivation, accountability, validation, connection, someone to share experiences with, and support during challenges. Group identified factors that lead to unhealthy relationships which included trauma, lack of communication, and substance use. Benefited from increased insight and awareness of benefits of healthy relationships and factors that contribute to unhealthy relationships. Will continue in IOP to decrease anxiety, increase healthy coping skills, and prevent decompensation.
--- NOTE | 2023-12-06 11:10 | BH.SGPN.GN ---
Behaviors/Verbalizations/Mental Status: [] Client alert and oriented, casually dressed and groomed. Eye contact good. Motor activity appropriate. Speech within normal limits. Affect congruent, mood content. Thoughts linear, logical, no signs of hallucinations or delusions. Client Response/Progress/Benefit: [] Client responded well to session, engaged and taking notes throughout. Worked with group to connect components of the experiential activity with characteristics of healthy and unhealthy relationships. Attentive during psychoeducation about characteristics of healthy, unhealthy, and abusive relationships. Client stated that within the relationship with her parents, she does well with respect and trust. Client reported she would like to continue to improve with communication in healthier ways as well as honesty. Appeared to benefit from identifying current healthy relationship attributes and an area client wants to work on to build healthier relationships. Client to continue IOP to increase healthy coping skills, stabilize mood, reduce anxiety, and prevent decompensation. Narrative Note: []
== END 2023-12-08 23:59 ==
LOC: BHIOP 08:00
PROVIDERS: Visit Provider Psychiatry & Neurology Psychiatry
DX: F33.2 Major depressive disorder, recurrent severe without psychotic features (principal); F41.1 Generalized anxiety disorder; F12.90 Cannabis use, unspecified, uncomplicated; F11.90 Opioid use, unspecified, uncomplicated
CPT/HCPCS: 90792; 99214; H2012; H2020; S9480; T1002; 90832; 90834

== ENCOUNTER 2023-12-09 07:15 | Outpatient (RCR) | payer MEDICAID, SELFPAY ==
[2023-12-09 00:30] VITALS: BP 119/84; PULSE 87
--- NOTE | 2023-12-09 09:00 | BH.SGPN.GN ---
Behaviors/Verbalizations/Mental Status: [Patient was alert and oriented, appropriately dressed and groomed. Eye contact was good, motor activity normal, speech within normal limits. Affect congruent, mood content. Thoughts linear, logical, no signs of hallucinations or delusions. Reviewed Patients symptom tracker and the patient reports low/moderate in anxiety/panic attacks, and low in depressed mood and agitation/irritability/anger. Patient does not report symptoms of self-harm urges or thoughts/risk of suicide. ] Client Response/Progress/Benefit: [Patient was engaged and open to the discussion. Patient reported her mood to be ?calm?. Patients first win and stressor go together. Patients stressor is that she woke up Saturday morning puking which caused her to be lethargic the rest of the day and Saturday. However, her win related to that is she thought challenged herself with it. Patient said when she was feeling sick, she thought of it as a set back at first but was able to change that to ?but its been a month since I puked which is progress?. Patients second win is that she slept better last night and got a good night?s sleep which she normally struggles with anyways. Patient was interactive and respectful with other group members about their mental wins and stressors. Patient benefited from the discussion by listening to feedback and giving input on her peer?s stressors and mental health wins. Patient will continue with IOP treatment to help develop healthy skills, promote mood stability, and improve distress tolerance. ] Narrative Note: []
--- NOTE | 2023-12-09 10:10 | BH.SGPN.GN ---
Behaviors/Verbalizations/Mental Status: []Pt alert and oriented, casually dressed and groomed. Eye contact good. Motor activity appropriate. Speech within normal limits. Affect congruent, mood euthymic and anxious. Thoughts linear, logical, no signs of hallucinations or delusions. Client Response/Progress/Benefit: [] Pt connected with topic of anxiety and participated throughout, providing input and taking notes. Participated throughout interactive discussion defining anxiety and identifying cognitive and physiological symptoms of anxiety. Group discussed how anxiety can prevent them from trying new things. Pt identified physical signs of anxiety as increased heart rate, fatigue, and stomachache. Pt identified safety behaviors as reassurance seeking, isolation, and avoidance. Benefited from increased awareness and insight on anxiety and its impact. Pt will continue IOP tx to prevent decompensation, improve daily functioning, and increase application of behavior activation skills. Narrative Note: []
--- NOTE | 2023-12-09 11:15 | BH.SGPN.GN ---
Behaviors/Verbalizations/Mental Status: []Pt alert and oriented, casually dressed and groomed. Eye contact good. Motor activity appropriate. Speech within normal limits. Affect congruent, mood calm. Thoughts linear, logical, no signs of hallucinations or delusions. Client Response/Progress/Benefit: [] Pt was an active participant AEB pt providing input and listening attentively to peers. Attentive during psychoeducation on mindfulness coping skills and their impact on reducing anxiety and improving overall mental health wellness. Group was able to identify self-soothing and mind-based coping skills which included: 5-senses, meditation, deep breathing, journaling, thought challenging, and progressive muscle relaxation. Pt also participated with peers in practicing mindfulness skills in session. Pt would like to work on using the 5-senses. Appeared to benefit from increasing repertoire of anxiety reduction skills. Pt will continue in [facility] tx to promote the use of healthy coping skills, improve daily functioning, and increase self-confidence. Narrative Note: []
--- NOTE | 2023-12-11 09:00 | BH.SGPN.GN ---
Behaviors/Verbalizations/Mental Status: [Patient was alert and oriented, appropriately dressed and groomed. Eye contact was good, motor activity normal, speech within normal limits. Affect congruent, mood content. Thoughts linear, logical, no signs of hallucinations or delusions. Reviewed Patients symptom tracker and the patient reports low/moderate in anxiety/panic attacks, and low in agitation/irritability/anger. Patient did not report symptoms of depressed mood, self-harm urges or thoughts/risk of suicide. ] Client Response/Progress/Benefit: [Patient was engaged and open to the discussion. Patient reported her mood to be ?happy?. Patients stressor was that she has been feeling extreme exhaustion all week and it has been making her use thought challenges. Patient first win however is that she has been successful with her thought challenges. Patients second win is that her cousin is coming from [place] in 2 weeks with her son and she is excited to see them. Patient was interactive and respectful with other group members about their mental wins and stressors. Patient benefited from the discussion by listening to feedback and giving input on her peer?s stressors and mental health wins. Patient will continue with IOP treatment to help develop healthy skills, promote mood stability, and improve distress tolerance. ] Narrative Note: []
--- NOTE | 2023-12-11 10:10 | BH.SGPN.GN ---
Behaviors/Verbalizations/Mental Status: [] Eye contact is good. Motor activity is appropriate. Appearance is casual. Speech is Appropriate. Mood is depressed. Affect is congruent. Thoughts are linear and logical. No evidence of psychosis. Client Response/Progress/Benefit: [] Pt receptive to session AEB contributing to small group discussion, as well as listening attentively to others, and taking notes. Worked with group to brainstorm the positive and negative aspects of stress on physical and mental health. Group did well to identify the benefits of stress as well as the impact of distress on performance, relationships, and mental health. Pt identified their personal top stressors as: being unemployed, relationships, physical health, and being exhausted. Pt seemed to benefit from increased awareness of current stressors and impact stress has on mental health. Will continue in IOP to prevent decompensation, increase healthy coping, and improve functioning. Narrative Note: []
--- NOTE | 2023-12-11 11:20 | BH.SGPN.GN ---
Behaviors/Verbalizations/Mental Status: []Pt alert and oriented, neatly dressed and groomed. Eye contact good. Motor activity appropriate. Speech within normal limits. Affect congruent, mood irritable. Thoughts linear, logical, no signs of hallucinations or delusions. Client Response/Progress/Benefit: [] Pt was an active participant in group discussions and experiential activity. Attentive during psychoeducation on the 4 A's (Avoid, adapt, alter, accept) of coping with stress. Shared that they would benefit most from adapting her expectations and avoiding unnecessary stressors. Was able to identify the connection between the experiential activity and utilization of stress management skills. Benefited from increased awareness of stress management strategies. Pt will continue IOP tx to reduce use of unhealthy coping skills, improve daily functioning, and increase self-confidence. ? Narrative Note: []
--- NOTE | 2023-12-11 15:00 | BH.TPR ---
Treatment Plan Review Demographics Date of Admission:: 11/18/23 Date of Treatment Plan Review:: 12/11/23 Admitting Diagnoses:: 1. Major depressive disorder, recurrent, severe without psychosis 2. Generalized anxiety disorder 3. Primary support and financial issues 4. Marijuana and Kratom use disorders Current Diagnoses:: 1. Major depressive disorder, recurrent, severe without psychosis 2. Generalized anxiety disorder 3. Primary support and financial issues 4. Marijuana and Kratom use disorders Patient Status Patient's Response to Treatment:: Pt has responded well to treatment AEB consistently attending IOP and engaging in both individual and group therapy sessions. Pt consistently completes homework provided from individual counseling. Pt contributes at times during group discussions, takes notes, appears to listen to others, and engages in group activities. Status of Current Problems and Symptoms: Pt is currently struggling most with her anxiety symptoms. Pt reports she continues to feel anxious most significantly in evening hours and experiences racing thoughts and restlessness. Continues to experience panic, though at a reduced frequency. Pt also working on developing healthier routines and engage in independent activities. Pt reports struggling with aimlessness and purposelessness but is making strides in her ability to find activities connected with her values to begin providing a sense of purpose in daily life. 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 Progress Problem #1: Problem Name:: Anxiety, Panic Status of Goals:: Complete with ongoing work encouraged. Pt is able to identify several triggers for anxiety and panic. She is also improving in her ability to recognize and actively apply healthy calming skills like breathing, grounding, taking breaks, and healthy distractions. Pt could benefit from reinforcement to demonstrate consistency of skill use. Pt is making strides with reducing reliance on Kratom to manage anxiety and is improved in application of mindfulness skills to do so. Pt?s DSM-5 scores for anxiety have reduced by 50% since admission. Team Recommendations:: Team recommends continued work on current goals and objectives to reinforce skills. Problem #2: Problem Name:: Depression Status of Goals:: Obj 1 ? complete with continued focus encouraged. Client can identify healthy coping skills like opposite action, behavior activation skills, self-care, positive self-talk, and engaging an activities that connect with her values to reduce depression and irritability sx and triggers. Per DSM 5 client's depression has reduced by 43% since admission. Obj 2 ? continued progress needed. Client can identify some distorted thought patterns but struggles with consistently challenging and replacing these thoughts. Team Recommendations:: Team recommends continued work on current goals and objectives to reinforce skills.
--- NOTE | 2023-12-12 09:00 | BH.SGPN.GN ---
Behaviors/Verbalizations/Mental Status: [] Eye contact is good. Motor activity is appropriate. Appearance is casual. Speech is Appropriate. Mood is euthymic. Affect is full. Thoughts are linear and logical. No evidence of psychosis. Reviewed daily check in sheet and no reports of suicidal ideations or intent. Client Response/Progress/Benefit: [] Pt was an active participant in group discussion. Attentive. Daily symptom tracker notes 2/5 for anxiety. Able to identify mental health wins and healthy habits. Emotion for today is uplifted. Reports feeling more engaged today than she has all week. I've felt exhausted all week. Notes progress as despite being exhausted I didn't spiral which I usually do. Instead she utilize healthy coping skills which included talking to support and reframing. Stressors is being to bored. Boredom is leading to ruminations and negative automatic thoughts which is not beneficial to her mental health. Group provided feedback and empathy which was beneficial. Progress noted. Will continue in IOP to prevent decompensation, increase healthy coping, and improve functioning. Narrative Note: []
--- NOTE | 2023-12-12 10:05 | BH.SGPN.GN ---
Behaviors/Verbalizations/Mental Status: [] Client alert and oriented, casually dressed and groomed. Eye contact good. Motor activity appropriate. Speech within normal limits. Affect congruent, mood euthymic. Thoughts linear, logical, no signs of hallucinations or delusions Client Response/Progress/Benefit: [] Client was an active participant in group discussion and experiential activity. Attentive during psychoeducation on resilience. Participated in interactive discussion with peers on the definition of resilience and where it comes from. Group identified that resiliency can be impacted by; relationships. past experiences, trauma, and current mental health state. Group also worked together to identify the benefits of being resilient and how it is related to mental health. Group with client's input identified increased confidence, ability to make decisions, and adaptability of benefits of being resilient. Able to relate experiential activity of group juggle to topics of resilience. Worked well with peers in small group in which they identified factors that contribute to resilience. Benefited from increased awareness of resilience and the factors that contribute to building resilience. Will continue in IOP to prevent decompensation and further promote mood stability. Narrative Note: []
--- NOTE | 2023-12-12 11:05 | BH.SGPN.GN ---
Behaviors/Verbalizations/Mental Status: [] Client alert and oriented, neatly dressed and groomed. Eye contact good. Motor activity appropriate. Speech within normal limits. Affect congruent mood euthymic. Thoughts linear, logical, no signs of hallucinations or delusions Client Response/Progress/Benefit: [] Client responded well to session AEB completing the resilience worksheet provided. Client participated in the discussion and worked cooperatively with group to identify strategies to enhance each of the components discussed. Client reports belief they already use resilience trait of ?accepting change as a part of life? with indicating they actually crave change. Client stated they would like to continue to develop resilience trait of ?taking care of self.? Client seemed to benefit from discussing strategies for improving personal resilience and identifying resilience traits Client already possesses. Will continue IOP tx to promote mood stability and increase self care. Narrative Note: []
--- NOTE | 2023-12-16 09:00 | BH.SGPN.GN ---
Behaviors/Verbalizations/Mental Status: [Patient was alert and oriented, appropriately dressed and groomed. Eye contact was good, motor activity normal, speech within normal limits. Affect congruent, mood content. Thoughts linear, logical, no signs of hallucinations or delusions. Reviewed Patients symptom tracker and the patient reports low to moderate in anxiety/panic attacks, low in agitation/irritability/anger. Patient does not report symptoms of depressed mood, self-harm urges and behavior or thoughts or risk of suicide. ] Client Response/Progress/Benefit: [Patient was engaged and open to the discussion. Patient reported her mood to be ?excited?. Patients wins and stressors all go together. Patient is driving to [email or web address] with her brother today to watch the eclipse with a friend. Patient is nervous for the number of people who may or may not be traveling causing her anxiety of driving to ?ramp up?. Patient is proud of herself however for choosing to come to group instead of skipping to avoid traffic. Patient stated she knows that she feels better once leaving group and wanted to make sure she attended. Patient was interactive and respectful with other group members about their mental wins and stressors. Patient benefited from the discussion by listening to feedback and giving input on her peer?s stressors and mental health wins. Patient will continue with IOP treatment to help develop healthy skills, promote mood stability, and improve distress tolerance. ] Narrative Note: []
--- NOTE | 2023-12-16 10:15 | BH.SGPN.GN ---
Behaviors/Verbalizations/Mental Status: []Patient was alert and oriented, casually dressed and groomed. Eye contact was good, motor activity normal, speech within normal limits. Affect congruent, mood anxious and content. Thoughts linear, logical, no signs of hallucinations or delusion Client Response/Progress/Benefit: []Pt participated in the group discussions AEB providing input and taking notes. Attentive during psychoeducation Goal Setting. Participated during the discussion on common barriers which the group identified as: lack of motivation, making excuses, not feeling good enough, and lack of support. Group also identified benefits sense of purpose, improved self-confidence, more motivation for other goals, and improved mental health. Pt reports struggling specifically with barriers of low motivation and anxiety or fear of failure. Benefited from increased awareness of mental health benefits of goals as well as psychoeducation on SMART goal criteria. Will continue in IOP to prevent decompensation, improve daily functioning, and increase ability to manage anxiety. Narrative Note: []
--- NOTE | 2023-12-18 10:05 | BH.SGPN.GN ---
Behaviors/Verbalizations/Mental Status: [] Eye contact is good. Motor activity is appropriate. Appearance is casual. Speech is Appropriate. Mood is depressed/irritable. Affect is congruent. Thoughts are linear and logical. No evidence of psychosis. Client Response/Progress/Benefit: [] Pt was actively engaged, providing input at times, and taking notes throughout session. Connected with the topic of pitfalls and listened to group discussion on internal and external barriers that prevent from choosing a healthier path to mental wellness. Group worked together to identify examples of personal internal pitfalls and pt identified theirs as not asking for help, being emotionally reactive, not setting boundaries, and avoiding. Pt benefited from group as pt learned to better identify and normalize potential barriers to improving mental health symptoms. Pt also gained awareness of the difference between external triggers and self-sabotaging behaviors. Will continue in IOP to prevent decompensation, stabilize mood, increase healthy coping, and improve functioning. Narrative Note: []
--- NOTE | 2023-12-18 10:34 | BH.MDN_ITS ---
Multi-Disciplinary Note Note 30-min Individual: Time Started:: 09:07 Date: 12/18/23 Purpose of session/treatment goals addressed:: To work on treatment plan goal #1 obj #1 and goal #2 obj #1. Additionally, began discharge planning. Eye Contact:: Good Motor Activity:: Appropriate Appearance:: Casual Speech:: Appropriate Mood:: Euthymic Affect:: Congruent Thoughts:: Linear, Logical and No evidence of hallucinations/delusions noted Staff Interventions:: motivational interviewing, psychoeducation on: (breaking habit triggers and ques), CBT techniques and strengths perspective Client Response:: Pt receptive of session, openly discussed current sx, stressors, and treatment progress. Expressed feeling overall she has made significant progress since beginning IOP tx and is feeling more hopeful and less anxious. Discussed that evenings continue to be the most difficult as she struggles with not knowing what to do with herself. Identified that she has been able to fill her days with activities such as going for walks or drives and is continuing to work with [employer] to begin volunteering. Pt reports she has started dating someone as well which has helped her to feel less lonely and more excited about spending time outside of the house. Believes she may still struggle in the evening due to not having anything planned for herself, as well as evenings typically being when she relies most on Kratom for coping with her anxiety. Receptive of discussion reviewing the importance of removing triggers and cues to use to continue, in order to help with weaning herself off the substance. Discussed changing her evening routine and incorporating more hands on and active activities such as stretching/yoga or meal prepping for the next day. Additionally, discussed planning out her days in the evening so she has more structure and can reflect on the positives of the day she just had. Discussed discharge and pt reports she would like to continue to work on maintenance and have the support of the group as she weans off kratom completely . Pt will continue IOP tx for two more weeks to have the group support as well as schedule outpatient counseling services. Risks/Concerns:: Denies any suicidal ideation, plan, or intent as of this date 12/18/23. Progress Toward Goals/Plan:: Progress noted. Pt continues to report reduced depression and ongoing progress with improving her ability to manage anxiety. She continues to engage in activities outside of the home and has been expanding her support system. Continues to struggle with managing her anxiety an d reducing her reliance on kratom for managing her anxiety. She would benefit from continuing the IOP program to further promote application of coping skills, further improve mood stability, and improve overall ability to independently manage her anxiety. Time Stopped:: 09:37
--- NOTE | 2023-12-18 11:10 | BH.SGPN.GN ---
Behaviors/Verbalizations/Mental Status: []Pt alert and oriented, casually dressed and groomed. Eye contact good. Motor activity appropriate. Speech within normal limits. Affect congruent, mood anxious and content. Thoughts linear, logical, no signs of hallucinations or delusions. Client Response/Progress/Benefit: [] Pt receptive of session, engaged throughout AEB actively contributing and listening to discussion, as well as taking notes. Pt participated in the experiential activity and processed with group how their emotions, perspective, and reactions positively and negatively impacted the outcome. Pt identified pitfalls they struggle with and shared wanting to work on pitfall of not setting boundaries or asking for help by using more specific communication. Benefited from identifying personal pitfalls and strategies to overcome these pitfalls. Will continue IOP tx to improve daily functioning, increase boundary setting and communication skills. ? Narrative Note: []
--- NOTE | 2023-12-19 09:05 | BH.SGPN.GN ---
Behaviors/Verbalizations/Mental Status: [] Eye contact is good. Motor activity is appropriate. Appearance is casual. Speech is Appropriate. Mood is euthymic. Affect is full. Thoughts are linear and logical. No evidence of psychosis. Reviewed daily check in sheet and no reports of suicidal ideations or intent. Client Response/Progress/Benefit: [] Pt particiapted at times during the group discussion. Attentive. Daily symptom tracker notes 2/5 for anxiety. Emotion for today is optimistic. Able to identify mental health wins and healthy habits. She had utilized recent conflict as oppurtunities to work on her effective communication which has resulted in positive results. Continuing to follow through with self-care, skills, and distraction. Identified stressors and goals/plans to address. Progress noted. Benefited from group support, encouragement, and feedback. Will continue in IOP to prevent decompensation, stabilize mood, and improve functioning. Narrative Note: []
--- NOTE | 2023-12-19 10:15 | BH.SGPN.GN ---
Behaviors/Verbalizations/Mental Status: []Pt alert and oriented, neatly dressed and groomed. Eye contact good. Motor activity appropriate. Speech within normal limits. Affect congruent, mood content. Thoughts linear, logical, no signs of hallucinations or delusions. Client Response/Progress/Benefit: [] Pt an active participant throughout. Participated during interactive discussion on defining conflict (internal/external) and possible benefits to conflict. Attentive during psychoeducation on conflict styles and engaged during small group activity in which peers identified the benefits and consequences to each conflict style. Pt identified their primary conflict style as accommodating type which impacts pt?s mental health and causes resentment. Pt shared that she is the avoiding type with herself which causes more issues. Benefited from increased awareness of the impact of conflict styles in mental health. Will continue in IOP tx to improve mood stability, increase use of healthy coping skills, and reduce negative thinking patterns. ??? Narrative Note: []
--- NOTE | 2023-12-19 15:00 | BH.SGPN.GN ---
Behaviors/Verbalizations/Mental Status: [] Eye contact is good. Motor activity is appropriate. Appearance is casual. Speech is Appropriate. Mood is content. Affect is congruent. Thoughts are linear and logical. No evidence of psychosis. Client Response/Progress/Benefit: [] Pt was an active participant in group discussions and activity. Engaged with peers in activity and identifying healthy ways to approach each conflict scenario. Group discussed various conflict resolution skills that can be useful in addressing conflict outside of IOP. Benefited from practicing and learning conflict resolution skills during group activity. Able to identify areas pt wants to work on to improve how pt manages conflict both internally and externally. Expressed wanting to work on reducing internal avoidance. Will continue in IOP to stabilize mood, improve consistent skill application, and prevent decompensation. Narrative Note: []
--- NOTE | 2023-12-23 09:00 | BH.SGPN.GN ---
Behaviors/Verbalizations/Mental Status: [Patient was alert and oriented, appropriately dressed and groomed. Eye contact was good, motor activity normal, speech within normal limits. Affect congruent, mood content. Thoughts linear, logical, no signs of hallucinations or delusions. Reviewed Patients symptom tracker and the patient reports low/moderate in anxiety/panic attacks and low in agitation/irritability/anger. Patient does not report symptoms of depressed mood, self-harm urges, or thoughts/risk of suicide. ] Client Response/Progress/Benefit: [Patient was engaged and open to the discussion. Patient reported her mood to be ?optimistic?. Patients first win is that she went on 2 walks yesterday because the weather was nice. She said that she did not feel utterly exhausted either which made her happy. Patients second win is that she has been eating healthier hence why she may not have been so exhausted. Patients stressor is that she has been nauseous all morning. Patient was interactive and respectful with other group members about their mental wins and stressors. Patient benefited from the discussion by listening to feedback and giving input on her peer?s stressors and mental health wins. Patient will continue with IOP treatment to help develop healthy skills, promote mood stability, and improve distress tolerance. ] Narrative Note: []
--- NOTE | 2023-12-23 10:10 | BH.SGPN.GN ---
Behaviors/Verbalizations/Mental Status: []Client alert and oriented, casually dressed and groomed. Eye contact good. Motor activity appropriate. Speech within normal limits. Affect congruent, mood content. Thoughts linear, logical, no signs of hallucinations or delusions. Client Response/Progress/Benefit: []Pt engaged in session AEB listening attentively to others and providing input throughout. Pt engaged in activity, able to connect how it can be uncomfortable and difficult to accept when things are out of one?s own control. Pt worked with group to identify what things in life can be hard to accept. Group identified things hard to accept as: change, loss of relationship, mental health diagnosis, other?s behaviors, and finances. Pt identified struggling to accept her mental health struggles which has led to minimizing and avoiding in the past. Seemed to benefit from increased awareness of importance of acceptance. Pt to continue IOP tx to further improve mood stability, application of behavior activation and thought challenging skills, and prevent decompensation. Narrative Note: []
--- NOTE | 2023-12-23 11:10 | BH.SGPN.GN ---
Behaviors/Verbalizations/Mental Status: []Pt alert and oriented, casually dressed and groomed. Eye contact good. Motor activity appropriate. Speech within normal limits. Affect congruent, mood euthymic. Thoughts linear, logical, no signs of hallucinations or delusions. Client Response/Progress/Benefit: []Pt responded well to session AEB taking notes and contributing to discussion throughout. Pt engaged as group continued discussion on acceptance and the mental health benefits of practicing acceptance. Pt and peers identified what makes acceptance challenging and pt completed a self-reflection exercise on what is hard to accept in pt's life. Pt identified she finds it hard to accept Stated she realizes a lot of the things she finds harder to accept are positive things. Group worked in small groups to identify strategies to increase acceptance. Pt shared she wants to practice using dialectical thinking. Pt appeared to benefit from gaining insight and learning strategies to increase acceptance. Pt will continue IOP tx to challenge distortions, increase healthy coping skills, and prevent decompensation.
--- NOTE | 2023-12-24 09:05 | BH.SGPN.GN ---
Behaviors/Verbalizations/Mental Status: [] Eye contact is good. Motor activity is appropriate. Appearance is casual. Speech is Appropriate. Mood is euthymic. Affect is full. Thoughts are linear and logical. No evidence of psychosis. Reviewed daily check in sheet and no reports of suicidal ideations or intent. Client Response/Progress/Benefit: [] Pt participated at times during the group discussion. Able to identify mental health wins and healthy habits. Emotion for today is ?tired and optimistic?. Utilizing opposite action which has proven to be very helpful for improving motivation and energy. Hopeful about the future and is working on plans to return to college. Completing responsibilities rather than avoiding them. Progress noted. Benefited from group support, encouragement, and feedback. Will continue in IOP to prevent decompensation, stabilize mood, and improve functioning. Narrative Note: []
--- NOTE | 2023-12-24 10:15 | BH.SGPN.GN ---
Behaviors/Verbalizations/Mental Status: [] Eye contact is fair. Motor activity is appropriate. Appearance is casual. Speech is Appropriate. Mood is anxious. Affect is congruent. Thoughts are linear and logical. No evidence of psychosis. Client Response/Progress/Benefit: []Pt engaged participant AEB listening to others, engaging in activity, and providing feedback at times. Attentive during psychoeducation and provided insight into obstacles that impede mental wellness. Pt shared with group current mental health reality and desired mental health reality. Stated she would like to get to a place where she feels able to manage her anxiety better, be surrounded by healthy supports, and no longer is isolating. Identified barriers to desired reality include: isolation, low motivation, toxic people, unrealistic expectations, and poor boundaries. Benefited from taking look at current mental health state and obstacles for progress. Pt to continue IOP tx to increase healthy connections, increase healthy coping skills, and prevent decompensation.
--- NOTE | 2023-12-24 11:15 | BH.SGPN.GN ---
Behaviors/Verbalizations/Mental Status: []Pt alert and oriented, casually dressed and groomed. Eye contact good. Motor activity appropriate. Speech within normal limits. Affect congruent, mood euthymic and anxious. Thoughts linear, logical, no signs of hallucinations or delusions. Client Response/Progress/Benefit: []Pt participated in group discussion and activity. Worked with group to identify strategies to help overcome barriers and obstacles to desired reality. Group developed strategies for the common barriers of avoidance, poor boundaries, unrealistic expectations, low self-confidence, and isolation. Identified personal barriers to desired reality and choose one obstacle to work on this week which was unrealistic expectation. Pt plans to do this by reminding herself to reflect on what is actually attainable based on her current level of functioning. Pt seemed to benefit from group by identifying obstacles and solutions to desired reality. Will continue IOP tx to prevent decompensation, improve grounding techniques and behavior activation skills, and improve daily functioning. ? Narrative Note: []
--- NOTE | 2023-12-26 10:10 | BH.SGPN.GN ---
Pt alert and oriented, neatly dressed and groomed. Eye contact good. Motor activity appropriate. Speech within normal limits. Affect congruent, mood euthymic. Thoughts linear, logical, no signs of hallucinations or delusions. Client Response/Progress/Benefit: [] Pt was an active participant in group discussion. Attentive during psychoeducation on the CBT [facility] (Thoughts, Behaviors, Emotions). Engaged in group discussion on how thoughts and behaviors can contribute to maintaining adverse feelings, such as depression, anxiety, and irritability. Completed personal maintenance cycle for depression and shared that in the past she used substances to cope with negative thoughts. Shared this maintains depression and anxiety cycles. Pt benefited from increased awareness of the basis of CBT therapy as well as specific thoughts that are impacting pt's progress. Will continue in IOP to promote mood stability, increase distress tolerance skills, and improve self-compassion. Narrative Note: []
--- NOTE | 2023-12-26 10:57 | BH.MDN ---
Multi-Disciplinary Note Note 30-min Individual: Time Started:: 09:17 Date: 12/26/23 Purpose of session/treatment goals addressed:: To work on treatment plan goal #1 obj #1 and goal #2 obj #1. Eye Contact:: Good Motor Activity:: Appropriate Appearance:: Neat and Casual Speech:: Appropriate Mood:: Euthymic and Anxious Affect:: Congruent Thoughts:: Linear, Logical and No evidence of hallucinations/delusions noted Staff Interventions:: motivational interviewing, CBT techniques, strengths perspective and other (began discharge planning) Client Response:: Pt receptive of session and actively engaged throughout. Reports she has been reducing her Kratom use every Saturday and is planning to go from 4 capsules a day to 2 capsules a day this Saturday, with 01/04 being the day she officially stops using altogether. Shared feeling anxious but ready to make the step. Discussed worrying about withdrawal side effects but has been reminding herself that the side effects are temporary and that she no longer is relying on it to cope, she has several other skills to utilize. Shared successfully removing patterns surrounding her use and has gone 6 days since the last time she paired use with going for a drive. Went on to discuss cutting back use of marijuana as well which has helped with feeling more present. Pt described feeling ?antsy? to start moving forward with volunteering and looking for part-time work, but recognizes the importance of getting completely off of Kratom and managing her withdrawal sx before starting something new. Shared feeling overall she is coping with her mental health in much healthier ways and has a goal of pursuing these goals by February. Pt reports her biggest stressor is maintaining her progress and continuing to reframe from relying on substances to manage her anxiety. Reports this has created some tension within the relationship with her brother as he struggles with alcohol dependance. Noted that she is very close with her brother and would like to continue to foster that relationship but does not want to encourage his drinking when spending time together. Receptive of discussion on finding things they can do in places that do not allow drinking. Pt identified that they could go for walks together as they both enjoy the outdoors. Goal to do so this weekend. Risks/Concerns:: Denies any suicidal ideation, plan, or intent as of this date 12/26/23. Progress Toward Goals/Plan:: Continued progress noted. Pt consistently follows through with completing homework, working on her individual goals, and applying skills learned outside the treatment environment. She has made significant strides towards eliminating Kratom use and reports an improved sense of confidence in her ability to maintain sobriety once completely weaned off. She is doing well to maintain boundaries, communicate with supports, and practice consistent self-care. Pt continues to struggle with anxiety in the evenings and shared that she feels restless at times, reports ongoing negative self-talk during these moments. Recommended continued IOP treatment to maintain mood stability, encourage ongoing skill application, and prevent decompensation. Time Stopped:: 09:50
--- NOTE | 2023-12-26 11:10 | BH.SGPN.GN ---
Behaviors/Verbalizations/Mental Status: []Pt alert and oriented, casually dressed and groomed. Eye contact good. Motor activity appropriate. Speech within normal limits. Affect congruent, mood content and anxious. Thoughts linear, logical, no signs of hallucinations or delusions. Client Response/Progress/Benefit: []Pt responded well to session, contributing and attentive throughout discussion. Pt identified a negative thought that has kept them stuck. Pt's thought was I'm not good enough.? Pt reported when they think this way, they get depressed and isolate. Pt worked to reframe the thought by finding more rational, realistic ways to look at the thoughts and then processed them within group setting. Pt reframed the thought to ?I am whole, I am loved, therefore I am enough?. Pt appeared to benefit from practicing challenging negative thinking. Pt will continue IOP tx to prevent decompensation, increase mood stability, and continue to reduce maladaptive coping. ? Narrative Note: []
--- NOTE | 2023-12-30 10:15 | BH.SGPN.GN ---
Behaviors/Verbalizations/Mental Status: []Pt alert and oriented, neatly dressed and groomed. Eye contact good. Motor activity appropriate. Speech within normal limits. Affect congruent, mood anxious. Thoughts linear, logical, no signs of hallucinations or delusions. Client Response/Progress/Benefit: [] Pt responded well to session, contributing to discussion, and engaged during the activity. Group identified the benefits of change which included: increased confidence, improving mental health, and making progress. Worked with the group to identify barriers to change, which included: uncomfortable emotions such as anxiety and fear, lack of energy, worried about what others will think, and fear of the unknown. Pt participated along with group in activity where they identified and discussed the emotions related to change. Pt connected with peers that one can have many conflicting emotions when faced with change. Benefited from increased awareness and understanding of emotions, benefits, and barriers related to change. Will continue IOP tx to reinforce healthy coping skills and increase self-confidence. ? Narrative Note: []
--- NOTE | 2023-12-30 11:10 | BH.SGPN.GN ---
Behaviors/Verbalizations/Mental Status: [] Client alert and oriented, casually dressed and groomed. Eye contact good. Motor activity appropriate. Speech within normal limits. Affect congruent, mood anxious, irritable. Thoughts linear, logical, no signs of hallucinations or delusions. Client Response/Progress/Benefit: [] Client responded well to session, attentive. Did well to process activity and work with group to relate the strategies used to overcome barriers in the activity to managing change in own life. Client identified a change they would like to make as quitting Kratom. Client identified currently being in action stage for this particular change. Client stated their goal is to journal about her progress to remind her whiy she made the change in the first place. Appeared to benefit from identifying a small goal to work towards. Client will continue IOP tx to prevent decompensation, decrease maladaptive coping and increase overall functioning. Narrative Note: []
--- NOTE | 2023-12-31 09:00 | BH.SGPN.GN ---
Behaviors/Verbalizations/Mental Status: [] Eye contact is good. Motor activity is appropriate. Appearance is casual. Speech is Appropriate. Mood is anxious. Affect is congruent. Thoughts are linear and logical. No evidence of psychosis. Reviewed daily check in sheet and denies suicidal thoughts or intention. Client Response/Progress/Benefit: [] Client responded well to session AEB listening to others and sharing thoughts/feelings. Client reported mental stressor was having physical health issues with her stomach which she stated was frustrating. Client stated despite not feeling 100% physically well she still wants something for 20 minutes which made her feel a little better. Client reported additional mental positive was helping her mom yesterday with making dinner. Appeared to benefit from support from peers. Will continue IOP tx to continue utilization of healthy coping skills, challenge distortions, and prevent decompensation. Narrative Note: []
--- NOTE | 2023-12-31 09:05 | BH.SGPN.GN ---
Behaviors/Verbalizations/Mental Status: [] Eye contact is good. Motor activity is appropriate. Appearance is casual. Speech is Appropriate. Mood is depressed/irritable. Affect is flat. Thoughts are linear and logical. No evidence of psychosis. Reviewed daily check in sheet and no reports of suicidal ideations or intent. Client Response/Progress/Benefit: [] Pt did not participated in group discussions. Daily symptom tracker notes /5 for anxiety and /5 for depression. Declined to share this AM in group when asked, however was attentive. No progress noted as pt did not share. Limited benefited noted as well. Will continue in IOP to prevent decompensation, stablize mood, increase healthy coping, and improve functioning. Narrative Note: []
--- NOTE | 2023-12-31 10:05 | BH.SGPN.GN ---
Behaviors/Verbalizations/Mental Status: []Pt alert and oriented, casually dressed and groomed. Eye contact good. Motor activity appropriate. Speech within normal limits. Affect congruent, mood anxious and content. Thoughts linear, logical, no signs of hallucinations or delusions. Client Response/Progress/Benefit: []Pt was an active participant in group discussion and activity. Attentive during psychoeducation. Along with peers, pt was able to identify barriers to taking action in their life. Identified several symptoms and stressors that pt feels are holding them back from progress such as negative self-talk, fear of failure, relying on substances, avoidance, and lack of confidence. Stated these things have kept pt from making healthy changes, maintained feelings of being stuck, limited her goals, and prevented her from being kinder to himself. Pt shared wanting to begin addressing the impact irritability has had on their ability to take action. Benefited from increased self-awareness of obstacles. Will continue IOP tx to improve mood management, promote consistent skill application, and further improve self-confidence. Narrative Note: []
--- NOTE | 2023-12-31 11:10 | BH.SGPN.GN ---
Behaviors/Verbalizations/Mental Status: []Pt alert and oriented, neatly dressed and groomed. Eye contact good. Motor activity appropriate. Speech within normal limits. Affect congruent, mood euthymic. Thoughts linear, logical, no signs of hallucinations or delusions. Client Response/Progress/Benefit: [] Pt responded well to session, taking notes and participating in worksheet discussion. Pt connected with the discussion on motion vs action steps, and this helped pt learn how to set goals differently. Pt set a goal to be more compassionate with herself. Pt identified motion steps including writing down affirmations, setting an alarm, and telling a trusted person for accountability. Pt also made action steps which included plans to follow through writing down her wins and opening her positive self-talk shavonne every time she sits down for a meal. Appeared to benefit from identifying a small goal to benefit mental health. Will continue IOP tx to promote gains and reinforce healthy coping skills. ? Narrative Note: []
--- NOTE | 2024-01-02 09:05 | BH.SGPN.GN ---
Behaviors/Verbalizations/Mental Status: [] Eye contact good. Motor activity appropriate. Speech within normal limits. Affect congruent, mood content. Thoughts linear, logical, no signs of hallucinations or delusions. Reviewed client?s symptom tracker, denies SI, plan, or intent as of 01/02/2024. Client Response/Progress/Benefit: [] Client receptive of session, attentive and willing to process with group. Identified mental health ?wins? as challenging herself to use opposite action to go swimming. Went on to report giving herself credit for this which is also a win as she often struggles with doing so. Went on to describe going for a walk with her brother to continue to foster the relationship while maintaining a boundary of not wanting to consume alcohol. Identified current stressor as maintaining gains as this is pt last day of IOP tx. Did well to review several skills to aid in doing so. Client appeared to benefit from group support and encouragement. Recommended continued outpatient tx following IOP d/c to continue to improve mood stability, promote consistent skill application, and prevent decompensation. Narrative Note: []
--- NOTE | 2024-01-02 10:10 | BH.SGPN.GN ---
Behaviors/Verbalizations/Mental Status: []Eye contact is good. Motor activity is appropriate. Appearance is casual. Speech is Appropriate. Mood is euthymic. Affect is full. Thoughts are linear and logical. No evidence of psychosis. Client Response/Progress/Benefit: [] Pt was an active participant in activity and taking notes during group discussion. Attentive during psychoeducation and interactive discussion on coping skills included why people use unhealthy skills. Group came up with list of unhealthy coping skills and pt identified personal ones as avoidance, accepting negative thoughts as true, and substance use. Group discussed the effects of how unhealthy coping skills can impact mental health in a negative way. Pt also reflected that she has come a long way and she uses a lot less unhealthy skills. Participated during experiential activity and was able to relate the activity to group topic regarding the benefits of developing strong internal and external support system. Benefited from increased understanding of unhealthy coping skills and the need for developing healthy internal and external coping skills. Pt will discharge from IOP tx today as pt has accomplished her tx goals. Narrative Note: []
--- NOTE | 2024-01-02 11:10 | BH.SGPN.GN ---
Behaviors/Verbalizations/Mental Status: []Pt alert and oriented, casually dressed and groomed. Eye contact good. Motor activity appropriate. Speech within normal limits. Affect congruent, mood anxious and euthymic. Thoughts linear, logical, no signs of hallucinations or delusions. Client Response/Progress/Benefit: [] Pt responded well to session, taking notes and contributing when prompted. Group discussed the different categories of coping skills which included distraction, emotional release, grounding, self-love, and thought challenging.? Pt participated in creating a coping skills ?menu? from the five categories of coping skills. Pt's coping skill menu included: making a self-care routine, 4x4x4 breathing, exercise, and using a gratitude journal. Appeared to benefit from increasing repertoire of healthy coping skills. Will discharge from IOP tx as pt has met her IOP goals and no longer meets criteria for IOP level of care. Narrative Note: []
--- NOTE | 2024-01-02 11:43 | BH.DS_ITS ---
Discharge Summary Demographics Date of Admission:: 11/18/23 Discharge Date: 01/02/24 Presenting Problems at Admission:: The patient is a 33-year-old female with a history of depression and anxiety accompanied by nausea and vomiting, chronic fatigue, low energy which she feels is due to possibly having long COVID. Her nausea and vomiting have improved on Zofran recently. However, her other symptoms have worsened in the past year to the point of not being able to work and needing to move back to [place] to stay with her parents. 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 She was referred to the [facility] by her family due to worsening sx. Patient uses daily marijuana and Kratom but is trying to wean these. Current stressors include financial stress, recent of a friend, her above health issues and break-up 1 year ago of a boyfriend of 3 years. For primary support she has her mother. She denies any history of self-harm. She endorses sadness, crying spells, hopelessness, worthlessness, guilt, lack of motivation, isolation, anhedonia, low energy, fatigue, decreased concentration. She is sleeping 10 to 12 hours a day and is sleeping a lot but feels exhausted. She admits to passive thoughts of but says she has not had them since 1 week ago. She denies suicidal ideation, homicidal ideation, plan for suicide, hallucinations, delusions or symptoms of feliberto ever. She is a worrier by nature and ruminates n egatively. She has panic attacks on occasion which with the most recent one occurring 3 weeks ago. She denies OCD, eating disorder, trauma, PTSD, seizure or head trauma. Due to current symptom severity and acuity, pt is recommended [facility] level of care. Discharge Diagnoses:: 1. Major depressive disorder, recurrent, severe without psychosis 2. Generalized anxiety disorder 3. Primary support and financial issues 4. Marijuana and Kratom use disorders Reason for Discharge:: Pt has accomplished her tx goals AEB her reduced DSM-5 scores and improve mood. Pt no longer meets criteria for [facility] level of care and will discharge to [facility] aftercare and outpatient counseling and psychiatry. Treatment Progress During Treatment & Response: Pt has responded well to treatment as evidenced by Pt consistently attending IOP sessions and her reduction of DSM-5 scores since admission. Pt was always attentive and receptive to learning during group and individual sessions. Pt actively applied coping skills outside of IOP and reports overall her mood is improved and she is functioning better than she was several months ago. Pt has additionally greatly reduced her reliance on Kratom to manage her anxiety and will be completely weaned from it by the end of the week. Pt?s overall symptom reduction is 56% since admission with anger decreasing by 100%, depression decreasing by 71%, and anxiety decreasing by 60%. Pt has increased self-confidence in her ability to manage stressors, emotions, and her distorted thinking patterns. Most importantly, Pt has gained self- compassion, confidence, and increased ability to regulate her emotions and practice self-care. Issues Still to be Addressed:: Negative thinking patterns, unrealistic expectations of self, consistent self-care, anxiety responses and triggers, boundary setting and assertive communication, and maintenance of healthy coping skills. Discharge Recommendations/Instructions:: [facility] Pt will begin working with [facility] for weekly outpatient mental health counseling. Discharge Handout
--- NOTE | 2024-01-02 13:27 | BH.MDN_ITS ---
Multi-Disciplinary Note Note 30-min Individual: Time Started:: 12:00 Date: 01/02/24 Purpose of session/treatment goals addressed:: To address current stressors and discuss strategies to help cope with these stressors. Another goal was to discuss discharge and aftercare. Eye Contact:: Good Motor Activity:: Appropriate Appearance:: Neat and Casual Speech:: Appropriate Mood:: Euthymic Affect:: Congruent Thoughts:: Linear, Logical and No evidence of hallucinations/delusions noted Staff Interventions:: motivational interviewing, discharge planning, strengths perspective and reviewed DSM-5 Client Response:: Pt responded well to session, open to meeting with therapist. Pt reports that she is much more hopeful and confident in her ability to manage her sx of anxiety and depression since beginning IOP tx 6 weeks ago. Pt went on to describe various areas of progress since beginning IOP tx, including improved willingness to be vulnerable, communicating and advocating for her needs to be met with her supports, setting boundaries with herself, and improved self-talk. Shared she is looking forward to continuing to work on self- improvement by challenging herself to follow-through with goals of completely weaning off of Kratom on Saturday, 01/04, and pursuing employment once withdrawal sx subside. Pt discussed following through with plans to get back into exercise and has been spending time swimming at the [facility] throughout the week. Reports her brother has been receptive of doing activities outdoors and they have been going on walks which has prevented from pt being pressured to drink while hanging out with him. Pt reports plans to follow-up with [facility] for ongoing maintenance. She recognizes that she can benefit from continuing to work on her self-esteem, breaking the cycle of unhealthy relationships, and sitting with unc omfortable emotions rather than avoiding them. Risks/Concerns:: No risks or concerns as of this date. Pt denies SI, plan, or intent as of this date. Progress Toward Goals/Plan:: Pt will discharge from IOP tx today as pt has accomplished her tx goals. Pt?s overall symptom reduction is 56% since admission with anger decreasing by 100%, depression decreasing by 70%, and anxiety decreasing by 60%. Pt has been encouraged to continue with outpatient counseling through [facility]. Pt will continue with [facility] for medication management. Time Stopped:: 12:19
== END 2024-01-02 12:21 | disposition home or self-care (01) ==
LOC: BHIOP 07:15
PROVIDERS: Visit Provider Psychiatry & Neurology Psychiatry
DX: F33.2 Major depressive disorder, recurrent severe without psychotic features (principal); F41.1 Generalized anxiety disorder; F12.90 Cannabis use, unspecified, uncomplicated; F19.90 Other psychoactive substance use, unspecified, uncomplicated; Z79.899 Other long term (current) drug therapy
CPT/HCPCS: H2012; H2020; S9480; 90832

== ENCOUNTER 2024-04-13 07:04 | Day surgery (SDC) | payer MEDICAID, SELFPAY ==
--- NOTE | 2024-04-13 07:12 | H&P.OPEN ---
HPI - General General Date of Service: 04/13/24 HPI Narrative ZULEIMA JOHNSON, is a 33 F who presents for an EGD due to daily nausea as well as some more lower abdominal pain. Patient states the omeprazole has helped some but she still has it daily. office visit 03/10/24 [facility] HPI: 33-year-old female presents with her mom due to nausea, occasional vomiting and GERD. Patient states that she has nausea daily in the morning. Of occasionally every few months will wake up and vomit. Patient states she has reflux up her esophagus about twice a week. Patient had a colonoscopy in [place] in June 2023 which was negative. Patient has bowel movements daily does occasionally have some diarrhea. Patient occasionally has some lower abdominal pain more in the morning denies any upper abdominal pain. Patient has not been taking PPIs consistently. [facility] Medical History Wears glasses Alcohol use Marijuana use Electronic cigarette use Smoker Generalized anxiety disorder Major depressive disorder, recurrent severe without psychotic features Home Medications ?Medication ?Instructions ?Recorded ?Last Taken ?Type cetirizine 10 mg tablet (Zyrtec) 10 mg PO DAILY PRN allergy symptoms 11/20/23 Unknown History venlafaxine 75 mg capsule,extended 75 mg PO DAILY 11/20/23 04/13/24 History release 24 hr (Effexor XR) omeprazole 40 mg capsule,delayed 40 mg PO QDAY #30 caps 03/10/24 Unknown Rx release bupropion HCl 150 mg 24 hr tablet, 300 mg PO DAILY 04/09/24 04/13/24 History extended release Allergy/AdvReac Type Severity Reaction Status Date / Time shellfish derived (seafood AdvReac Mild Hives Verified 04/13/24 07:43 - shellfish) Surgical History Hx of colonoscopy Hx of LASIK Social History Smoking Status: Current every day smoker tobacco type: e-cigarettes Past Medical/Surgical History Planned Operation Planned Operative Procedure(s): EGD Previous Hospitalizations/Surgeries HX Hospitalizations: No Any Problems With Anesthesia: No You/Your Family Experience Fever (Hyperthermia) With Anes: No Cholinesterase deficiency: No Cardiovascular Hx Hypertension: No Respiratory Hx Sleep Apnea: No Hx Respiratory Tract Infection/Cold (presently): No Do You Snore Loudly (louder than talking or can be heard): No Do You Often Feel Tired/ Fatigued/ Sleepy Dring Daytime?: No Has Anyone Observed You Stop Breathing During Sleep?: No Result (for STOP score): Negative Smoking Status: Current every day smoker Neurological Does patient have nerve stimulator: No Reproduction : No Allergies shellfish derived (seafood - shellfish) Adverse Reaction (Mild, Verified 04/13/24 07:43) Hives Discharge Is Pt Admitted From a Group Home, or a Correction: No After D/C, Where Do you Plan to Go: Return Home Physical Exam Const alert, oriented x3 and no apparent distress HEENT normocephalic and head/scalp atraumatic Resp normal respiratory effort Cardio regular rate GI soft to palpation and non-tender; Negative for non-distended Palpation: Negative for guarding Extremity no clubbing, cyanosis or edema Skin no rashes or lesions noted Neuro CN's II-XII intact bilaterally Psych mental status grossly normal Assessment & Plan Assessment/Plan (1) GERD (gastroesophageal reflux disease): (2) Nausea: Surgery Risks - Colonoscopy I discussed with the patient the risks of the procedure: Yes Risks Include but are not Limited To: Plan for an EGD risks include but are not limited to: Bleeding, perforation requiring further surgery
--- NOTE | 2024-04-13 07:31 | PCM.PRE.AN2 ---
ASA Classification* ASA Classification ASA Classification: 2 Assessment & Plan Anesthesia* Anesthesia Assessment Anesthesia Assessment: Discussed sedation and/or anesthesia options, risks, benefits, and alternatives with patient/parents/legal guardian/POA. Questions invited. The patient/parents/legal guardian/POA seems to understand and agrees to proceed with anesthesia plan. Reviewed the physical assessment, medical history, allergy history and patient home medications list prior to surgery/procedure/anesthetic and documented any changes. Performed airway and anesthesia risk assessments. 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 When Was Last Pacemaker Check QUESTION #4 FULL TEXT: You/Your Family Experience fever (hyperthermia) with Anesthesia Last Oral Intake Last Oral intake: Last Oral Intake NPO since Meds taken in AM with sips of water? Meds patient instructed to take am of surgery PONV PONV - ground support equipment fitter: PONV - ground support equipment fitter Female Yes 04/09/24 14:42 HX of Motion Sickness Yes 04/09/24 14:42 HX of N/V After Surgery No 04/09/24 14:42 Non-Smoker No 04/09/24 14:42 Duration of Surgery greater No 04/09/24 14:42 than 60 minutes Number of Risk Factors 2 04/09/24 14:42 PONV Score Moderate Risk 04/09/24 14:42 Height & Weight Height & Weight: Anesthesia: Height & Weight Height 5 ft 11 in 03/10/24 14:33 Respiratory Assessment Respiratory Assessment - ground support equipment fitter: Respiratory Tract Infection Hx - ground support equipment fitter Hx Respiratory Tract Infection No 04/13/24 07:12 STOP Sleep Apnea STOP Sleep Apnea - ground support equipment fitter: STOP Sleep Apnea - ground support equipment fitter Hx Hypertension No 04/13/24 07:12 Hx Sleep Apnea No 04/13/24 07:12 CPAP BIPAP Do you snore loudly (louder No 04/13/24 07:12 than talking or can be heard Do you often feel tired/ No 04/13/24 07:12 fatigued/ sleepy during daytime? Has anyone observed you stop No 04/13/24 07:12 breathing during sleep? STOP Results Negative 04/13/24 07:12 QUESTION #5 FULL TEXT : Do you snore loudly (louder than talking or can be heard through closed doors)? 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 Specify any problems Hx of Preganancy in last 3 N/A 04/09/24 14:42 Months Nurse Filling Out Transfusion NBUCHER 04/09/24 14:42 & Questions: Date: 04/09/24 04/09/24 14:42 Time: 14:43 04/09/24 14:42 Patient unable to answer at this time (ie. confused, unrespo /Reproduction History /Reproductive History - ground support equipment fitter: /Reproductive Hx- ground support equipment fitter Hx Now No 04/13/24 07:12 Gestational Age (in weeks): EDC: Hx Hx Para Hx Section SAB No 04/09/24 14:42 PFSH Medical History Wears glasses Alcohol use Marijuana use Electronic cigarette use Smoker Generalized anxiety disorder Major depressive disorder, recurrent severe without psychotic features Home Medications ?Medication ?Instructions ?Recorded ?Last Taken ?Type cetirizine 10 mg tablet (Zyrtec) 10 mg PO DAILY PRN allergy symptoms 11/20/23 Unknown History venlafaxine 75 mg capsule,extended 75 mg PO DAILY 11/20/23 Unknown History release 24 hr (Effexor XR) omeprazole 40 mg capsule,delayed 40 mg PO QDAY #30 caps 03/10/24 Unknown Rx release bupropion HCl 150 mg 24 hr tablet, 300 mg PO DAILY 04/09/24 Unknown History extended release Allergy/AdvReac Type Severity Reaction Status Date / Time shellfish derived (seafood AdvReac Mild Hives Verified 04/09/24 14:39 - shellfish) Surgical History Hx of colonoscopy Hx of LASIK Social History Smoking Status: Current every day smoker tobacco type: e-cigarettes Review of Systems (Anesthesia) ROS Narrative System reviewed and no additional complaints, except as documented.
[2024-04-13 07:50] LABS: Internal QC Validated? YES +Cl - CLEAR BKGD; Pregnancy, Urine Negative Negative; Record Kit Lot#,Urine Preg HCG0000772476
[2024-04-13 07:51] VITALS: BP 103/69; PULSE 73; RESP 16; TEMP 36.9; O2SAT 95; BMI 20.1
[2024-04-13] MEDS: Lactated Ringers 1,000 ML 15 ML IV (07:51)
--- NOTE | 2024-04-13 08:30 | IMM_PTH ---
PATIENT: ZULEIMA JOHNSON LOC: EN U#:[id number] AGE/SX: 33/F ROOM: RE04/13/[address]: Dr. Yumiko Andujar MD : 1990 BED: DIS: 04/13/2024 SPEC #: [id number] RECD: 04/13/24 11:52 STATUS: ABRAHAM RESydney #: [id number] QUINTEN: 04/13/24 08:[address]: Yumiko Andujar DEPT: IMMUNOHISTOCHEMISTRY RECD BY: Ronnie Kraus ENTERED: 04/13/24 11:52 SP TYPE: IMMUNO OTHR DR: Haylee Cervantes, [facility], TALENT DEVELOPMENT MANAGER-C Tissues: A - Gastric mucous membrane Procedures: H Pylori (initial) PHYSICIAN & INSTITUTION [place] [id number] SPECIMEN INFORMATION: Tissue Source: A- Gastric antrum Clinical Info: GERD, nausea Specimen Number: [id number] CPT code: 19107 METHODOLOGY: Deparaffinized sections of prefer/formalin-fixed tissue or PAP/DQ stained slides are incubated with monoclonal/polyclonal antibodies/oligonucleotide probes. Localization is made via biotin free immunoperoxidase method. Appropriate controls are performed and reacted as expected. Results on target cell population are indicated in the following table: RESULTS: ANTIBODY / CLONE RESULT Block A H Pylori (polyclonal) negative These tests were developed and their performance characteristics determined by [facility]. They may not have been cleared or approved by the U.S. Food and Drug Administration. The FDA has determined that such clearance or approval is not necessary. The above immunohistochemical/dualISH markers are ordered and reviewed by the Pathologist. INTERPRETATION: A. Gastric antrum, biopsy: Negative for Helicobacter pylori organisms. PRATEEK/ 04/14/2024
--- NOTE | 2024-04-13 08:30 | EGD_PTH ---
PATIENT: ZULEIMA JOHNSON LOC: EN U#:[id number] AGE/SX: 33/F ROOM: RE04/13/[address]: Dr. Yumiko Andujar MD : 1990 BED: DIS: 04/13/2024 SPEC #: [id number] RECD: 04/13/24 10:00 STATUS: ABRAHAM YAMILKA #: [id number] QUINTEN: 04/13/24 08:[address]: Yumiko Andujar DEPT: SURGICAL PATHOLOGY RECD BY: Kailee Douglas ENTERED: 04/13/24 10:43 SP TYPE: EGD BIOPSY ANNETTE DR: Haylee Cervantes, [facility], ENGINEERING SCIENTIST-C Tissues: A - Gastric mucous membrane B - Esophagus, NOS Procedures: Special Stain Group I Surgery Specimen Level IV Alcian Blue/PAS (control) HEADER OPERATION: EGD biopsy PRE-OP DIAGNOSIS: GERD, nausea TISSUE SUBMITTED: A- Gastric antrum, B- Gastroesophageal junction mucosa biopsy MICROSCOPIC DIAGNOSIS A. Gastric antrum, biopsy: Mild chronic inflammation. See comment. B. Gastroesophageal junction mucosa, biopsy: Fragment of gastric mucosa with mild chronic inflammation. No evidence of goblet cell metaplasia. See comment. / 04/14/2024 COMMENT A. The results of immunohistochemistry for Helicobacter pylori will be reported separately ([id number]). B. Alcian blue/PAS stain with matched control is used in the evaluation of the specimen. MICROSCOPIC DESCRIPTION Slides are reviewed. GROSS DESCRIPTION A. Received in fixative is one container labeled with the patient's name and designated Gastric antrum biopsy. The specimen consists of one irregular fragment of gonzalez tissue measuring 0.5 x 0.1 x 0.1cm. The specimen is totally submitted in one cassette. b. Received in fixative is one container labeled with the patient's name and designated GE junction biopsy. The specimen consists of one irregular fragment of light gonzalez soft tissue that measures 0.3 x 0.3 x 0.1 cm. The specimen is totally submitted in one cassette. / 04/13/2024 TC:3 CPT:08611m0,15180
--- NOTE | 2024-04-13 08:47 | OP.EGD_ITS ---
Patient Name: Nyla Babb Procedure Date: 04/13/2024 8:32 AM Date of : 1990 Age: 33 Procedure: Upper GI endoscopy Indications: Heartburn, Nausea Providers: Yumiko Andujar MD Referring MD: aHylee Cervantes [facility], [employer] Player-c Medicines: Monitored Anesthesia Care Patient Profile: This is a 33 year old female. Complications: No immediate complications. Procedure: Pre-Anesthesia Assessment: - Prior to the procedure, a History and Physical was performed, and patient medications and allergies were reviewed. The patient's tolerance of previous anesthesia was also reviewed. The risks and benefits of the procedure and the sedation options and risks were discussed with the patient. All questions were answered, and informed consent was obtained. Prior Anticoagulants: The patient has taken no anticoagulant or antiplatelet agents. ASA Grade Assessment: Per anesthesia. After reviewing the risks and benefits, the patient was deemed in satisfactory condition to undergo the procedure. After obtaining informed consent, the endoscope was passed under direct vision. Throughout the procedure, the patient's blood pressure, pulse, and oxygen saturations were monitored continuously. The gastroscope was introduced through the mouth, and advanced to the second part of duodenum. The upper GI endoscopy was accomplished without difficulty. The patient tolerated the procedure well. Scope In: 8:38:28 AM Scope Out: 8:42:14 AM Total Procedure Duration Time 0 hours 3 minutes 46 seconds Findings: The Z-line was variable and was found 40 cm from the incisors. Biopsies were taken with a cold forceps for histology. Mildly erythematous mucosa without bleeding was found in the gastric antrum. Biopsies were taken with a cold forceps for histology. Biopsies were taken with a cold forceps for Helicobacter pylori cultures. The examined duodenum was normal. The cardia and gastric fundus were normal on retroflexion. Impression: - Z-line variable, 40 cm from the incisors. Biopsied. - Erythematous mucosa in the antrum. Biopsied. - Normal examined duodenum. Recommendation: - Discharge patient to home. - Resume previous diet. - Continue present medications. - Await pathology results. Procedure Code(s): --- Professional --- 44390, PT, Esophagogastroduodenoscopy, flexible, transoral; with biopsy, single or multiple Diagnosis Code(s): --- Professional --- K22.89, Other specified disease of esophagus K31.89, Other diseases of stomach and duodenum R12, Heartburn R11.0, Nausea CPT copyright 2021 [employer]. All rights reserved. The codes documented in this report are preliminary and upon print shop assistant review may be revised to meet current compliance requirements. MD Yumiko Winkler MD 04/13/2024 8:46:54 AM This report has been signed electronically. Number of Addenda: 0 Note Initiated On: 04/13/2024 8:32 AM
--- NOTE | 2024-04-13 08:47 | OP.CCLET_ITS ---
04/13/2024 Haylee Cervantes [facility], Splitting Machine Tender-c Re : Upper GI endoscopy procedure for Nyla Babb Dear Billy This procedure was performed on Saturday, April 13, 2024. My impressions and recommendations are as follows: Impressions : - Z-line variable, 40 cm from the incisors. Biopsied. - Erythematous mucosa in the antrum. Biopsied. - Normal examined duodenum. Recommendations : - Discharge patient to home. - Resume previous diet. - Continue present medications. - Await pathology results. My findings are described in the full procedure note, which is enclosed. If I can be of further assistance, please feel free to contact me at Doctor phone number(s): , Work: . Sincerely, MD Yumiko Winkler MD 04/13/2024 8:46:54 AM This report has been signed electronically.
[2024-04-13 08:50] VITALS: BP 103/69; BP 87/56; PULSE 71; RESP 16; TEMP 36.5; O2SAT 100
--- NOTE | 2024-04-13 08:52 | PCM.POST.ANE ---
Anesthesia: Postop Eval I Current Vital Signs Temperature: 97.7 F Pulse Rate: 70 Blood Pressure: 87/56 Respiratory Rate: 18 Pulse Ox: 97 Oxygen Delivery Method: Room Air Assessment Airway patent: Yes Spontaneous unlabored respirations: Yes Mental status: Awake and Calm nausea: No Vomiting: No Anesthesia Complication: No Fluid Hydration Crystalloid volume administer (ml): 400 Total IV fluid infused: 400 Progress Note Anesthesia document: Postop Eval 1 completed: Yes
[2024-04-13 08:53] VITALS: BP 87/56; PULSE 70; RESP 18; TEMP 36.5; O2SAT 97
[2024-04-13 08:55] VITALS: BP 103/69; BP 89/70; PULSE 73; RESP 16; O2SAT 99
[2024-04-13 09:00] VITALS: BP 103/69; BP 91/55; PULSE 61; RESP 16; TEMP 36.5; O2SAT 96
[2024-04-13 09:05] VITALS: BP 103/69
--- NOTE | 2024-04-13 09:09 | PCM.POSTANE2 ---
Anesthesia Postop Eval I Sum Postop Eval Completion status Anesthesia document: Postop Eval 1 completed: Yes Anesthesia Postop Eval I Summary Anesthesia Postop Eval I Summary: Anesthesia Postop Eval I: Assessment Summary Airway patent Yes 04/13/24 08:53 [email or web address] Spontaneous unlabored Yes 04/13/24 08:53 [email or web address] respirations Mental status Awake,Calm 04/13/24 08:53 [email or web address] nausea No 04/13/24 08:53 [email or web address] Vomiting No 04/13/24 08:53 [email or web address] Anesthesia Postop Eval I: Fluid Summary Crystalloid volume administer 400 04/13/24 08:53 [email or web address] (ml) Colloids volume administered ( ml) Blood Product volume administered (ml) Total IV fluid infused 400 04/13/24 08:53 [email or web address] Anesthesia Postop Eval I: Summary Notes Anesthesia Complication No 04/13/24 08:53 [email or web address] Anesthesia Complication Comment: Post-operative progress note Anesthesia: Postop Eval II Evaluation Mental status: Awake Pain Level: 0 nausea: No Vomiting: No
== END 2024-04-13 09:20 | disposition home or self-care (01) ==
LOC: EN 07:05 → AC 07:06
PROVIDERS: Anesthesiology; PCP Nurse Practitioner Family; Referring Provider Nurse Practitioner Family; Visit Provider Surgery
PROC: 0DJ08ZZ Inspection of Upper Intestinal Tract, Via Natural or Artificial Opening Endoscopic (ICD-10-PCS; CPT 43235; principal; 2024-04-13 08:25)
DX: K21.00 Gastro-esophageal reflux disease with esophagitis, without bleeding (principal); F33.2 Major depressive disorder, recurrent severe without psychotic features; K22.89 Other specified disease of esophagus; K31.89 Other diseases of stomach and duodenum; F17.290 Nicotine dependence, other tobacco product, uncomplicated; F41.1 Generalized anxiety disorder; Z79.899 Other long term (current) drug therapy
CPT/HCPCS: 43239; 81025; 88305; 88312; 88342; J7120; J2405

== ENCOUNTER → 2025-04-09 | Outpatient (CLI) | payer MEDICAID, SELFPAY ==
[2025-04-09 15:34] LABS: Hematocrit 42.2 % (37-47); Hemoglobin 15.7 g/dL (12.0-15.0); Immature Granulocytes Count 0.030 X10^3/uL (0.0-0.0); Mean Corp Hgb Conc 37.2 g/dL (32-36); Mean Corpuscular Volume 84.6 fL (81-99); Mean Platelet Vol. 9.3 fl (6.2-12.0); NRBC Flagged by Analyzer 0 % (0-5); Platelet Count 226 K/mm3 (150-450); RBC Distribution Width CV 12.4 % (11.6-14.6); RBC Distribution Width SD 37.5 fl (35.1-43.9); Red Blood Count 4.99 M/mm3 (4.2-5.4); White Blood Count 9.3 K/mm3 (4.4-11.0)
[2025-04-09 16:47] LABS: AST(SGOT) 15 U/L (<=31); Alanine Aminotransfer ALT/SGPT 12 U/L (<=34); Albumin, Serum 4.6 g/dL (3.5-5.0); Alkaline Phosphatase 67 U/L (35-104); Anion Gap 14 (5-15); BUN 9 mg/dL (4-19); BUN/Creat Ratio 13.3 RATIO (10-20); Calcium,Total 9.6 mg/dL (7.6-11.0); Carbon Dioxide 18.8 mmol/L (21.0-32.0); Chloride 105 mmol/L (98-108); Globulin 2.7 g/dL (2.2-4.2); Glucose 120 mg/dL (70-99); Potassium 3.3 mmol/L (3.3-5.1); Vitamin B12 569 pg/mL (180-914); Vitamin D,25 Hydroxy 22.0 ng/mL (30-100)
[2025-04-09 17:01] LABS: CRP < 3.00 mg/L (0.0-3.0)
[2025-04-14 11:08] LABS: Egg, Whole <0.10 kU/L (Class 0); Mussels <0.10 kU/L (Class 0)
== END | disposition home or self-care (01) ==
LOC: LAB 15:00
PROVIDERS: PCP Nurse Practitioner Family
DX: R11.0 Nausea (principal); R19.7 Diarrhea, unspecified; K59.00 Constipation, unspecified
CPT/HCPCS: 36415; 80053; 82306; 82607; 83516; 84443; 85025; 86003; 86005; 86036; 86140; 86671

== ENCOUNTER → 2025-04-10 | Outpatient (CLI) | payer MEDICAID, SELFPAY ==
--- OUTSIDE RECORDS SUMMARY | 2025-04-10 10:42 | XMS RPT_ITS | CCD ---
Author Organization [facility] Care Team Providers Care Motion Picture Actor Name Role Phone RICHARD ROBLERO Primary Care Unavailable NEIL CERVANTES Referring Unavailable Cristiana Louie Attending Unavailable Cristiana Louie Attending Unavailable Billy [facility], Neil Referring Unavailabl e Billy [place], Neil Primary Care UnavailYumiko Fine Attending Unavailable Yumiko Andujar Consulting Unavailable Billy [facility], Neil Referring Unavailabl e Billy [facility], Neil Primary Care Unavailabl e Yumiko Andujar Attending Unavailable Yumiko Andujar Attending Unavailable Allergies Allergy Classification Reported Allergen(s) Allergy Type Date of Onset Reaction(s) Facility (1 source) Shellfish Drug allergy (disorder) 04-13-2024 [facility] Repository Problems Problem Classification Problem Date Documented Da te Episodic/Chronic Esophageal disorders (2 sources) Gastro-esophagea l reflux disease without esophagitis; Translations: [Gastro-esophage al reflux disease without esophagitis] Onset: 10-09-2024 Chronic Malaise and fatigue (1 source) Other fatigue; Translations: [Other fatigue] Onset: 11-15-2023 Episodic Nausea and vomiting (2 sources) Nausea with vomiting, unspecified; Translations: [Nausea] Onset: 11-15-2023 Episodic Results Test Name Value Interpretation Reference Range Facility EGD Reporton 04-13-2024 EGD Report [facility] Medical Records Department [address] [place] [address] EGD Report MR#: [id number] Acct: [id number] Name: NYLA JOHNSON Rep #: [id number] : 1990 33 From: Yumiko Andujar MD PCP: CHRIS Garvey, LOG HAUL CHAIN FEEDER-C Status:REG SDC Patient Name: Nyla Johnson Procedure Date: 04/13/2024 8:32 AM Date of : 1990 Age: 33 Procedure: Upper GI endoscopy Indications: Heartburn, Nausea Providers: Yumiko Andujar MD Referring MD: Neil Cervantes [facility], F[employer] Sifter Machine-c Medicines: Monitored Anesthesia Care Patient Profile: This is a 33 year old female. Complications: No immediate complications. Procedure: Pre-Anesthesia Assessment: - Prior to the procedure, a History and Physical was performed, and patient medications and allergies were reviewed. The patient's tolerance of previous anesthesia was also reviewed. The risks and benefits of the procedure and the sedation options and risks were discussed with the patient. All questions were answered, and informed consent was obtained. Prior Anticoagulants: The patient has taken no anticoagulant or antiplatelet agents. ASA Grade Assessment: Per anesthesia. After reviewing the risks and benefits, the patient was deemed in satisfactory condition to undergo the procedure. After obtaining informed consent, the endoscope was passed under direct vision. Throughout the procedure, the patient's blood pressure, pulse, and oxygen saturations were monitored continuously. The gastroscope was introduced through the mouth, and advanced to the second part of duodenum. The upper GI endoscopy was accomplished without difficulty. The patient tolerated the procedure well. Scope In: 8:38:28 AM Scope Out: 8:42:14 AM Total Procedure Duration Time 0 hours 3 minutes 46 seconds Findings: The Z-line was variable and was found 40 cm from the incisors. Biopsies were taken with a cold forceps for histology. Mildly erythematous mucosa without bleeding was found in the gastric antrum. Biopsies were taken with a cold forceps for histology. Biopsies were taken with a cold forceps for Helicobacter pylori cultures. The examined duodenum was normal. The cardia and gastric fundus were normal on retroflexion. Impression: - Z-line variable, 40 cm from the incisors. Biopsied. - Erythematous mucosa in the antrum. Biopsied. - Normal examined duodenum. Recommendation: - Discharge patient to home. - Resume previous diet. - Continue present medications. - Await pathology results. Procedure Code(s): --- Professional --- 24189, PT, Esophagogastroduodenoscopy, flexible, transoral; with biopsy, single or multiple Diagnosis Code(s): --- Professional --- K22.89, Other specified disease of esophagus K31.89, Other diseases of stomach and duodenum R12, Heartburn R11.0, Nausea CPT copyright 2021 [employer]. All rights reserved. The codes documented in this report are preliminary and upon pipelines supervisor review may be revised to meet current compliance requirements. MD Yumiko Winkler MD 04/13/2024 8:46:54 AM This report has been signed electronically. Number of Addenda: 0 Note Initiated On: 04/13/2024 8:32 AM 04/13/2447 Date Yumiko Dominguez Signature: Date (if indicated) CC: [facility] LOG HAUL CHAIN FEEDER-C Neil Cervantes; Dr. Yumiko Andujar MD Date Dictated: 04/13/24831 Date Transcribed: Cell Tuber Machine: ÁLVARO Signed [facility] H Pylori (initial)on 024 H Pylori (initial) ----- Patient Age/Sex Location Account Attending Physician ----- NYLA JOHNSON / EN [id number] Dr. Yumiko Andujar MD ----- Specimen: [id number] Received: 04/13/24-1151 Status: ABRAHAM Perez Num: [id number] Spec Type: IMMUNO Subm Dr: Dr. Yumiko Andujar MD PHYSICIAN INSTITUTION [address] [address] SPECIMEN INFORMATION: Tissue Source: A- Gastric antrum Clinical Info: GERD, nausea Specimen Number: [id number] CPT code: 64071 METHODOLOGY: Deparaffinized sections of prefer/formalin-fixed tissue or PAP/DQ stained slides are incubated with monoclonal/polyclonal antibodies/oligonucleotide probes. Localization is made via biotin free immunoperoxidase method. Appropriate controls are performed and reacted as expected. Results on target cell population are indicated in the following table: RESULTS: ANTIBODY / CLONE RESULT Block A H Pylori (polyclonal) negative These tests were developed and their performance characteristics determined by [facility]. They may not have been cleared or approved by the U.S. Food and Drug Administration. The FDA has determined that such clearance or approval is not necessary. The above immunohistochemical/dualISH markers are ordered and reviewed by the Pathologist. INTERPRETATION: A. Gastric antrum, biopsy: Negative for Helicobacter pylori organisms. AM/ 04/14/2024 Signed (signature on file) Dr. Win Weeks DO 04/15/24 1035 ----- Normal [facility] Comment on above: Performed By: #### P H.PYLORI #### [facility] [address] [place] [address], [address] MR/POSTOP.ANEon 04-13-2024 MR/POSTOP.[facility] Medical Records Department [address] [place] [address] Anesthesia Postop Eval I 04/13/24 0852 MR#: [id number] Acct: [id number] Name: NYLA JOHNSONAD Rep #: [id number] : 1990 33 From: Osvaldo Esparza PCP: CHRIS Garvey, LOG HAUL CHAIN FEEDER-C Status:REG SDC Y Race: C Location: [place] [address] Anesthesia: Postop Eval I Current Vital Signs Temperature: 97.7 F Pulse Rate: 70 Blood Pressure: 87/56 Respiratory Rate: 18 Pulse Ox: 97 Oxygen Delivery Method: Room Air Assessment Airway patent: Yes Spontaneous unlabored respirations: Yes Mental status: Awake and Calm nausea: No Vomiting: No Anesthesia Complication: No Fluid Hydration Crystalloid volume administer (ml): 400 Total IV fluid infused: 400 Progress Note Anesthesia document: Postop Eval 1 completed: Yes 04/13/24 0853 Date Osvaldo Dominguez Signature: Date CC: Signed Normal [facility] MR/[id number] 04-13-2024 MR/POSTOPAN2 [facility] Medical Records Department [address] [place] [address] Anesthesia Postop Eval II 04/13/24 0909 MR#: [id number] Acct: [id number] Name: NYLA JOHNSON BERNARDINO Rep #: [id number] : 1990 33 From: Gildardo Walter MD PCP: CHRIS Garvey, LOG [employer]UL CH[employer] FEEDER-C Status:REG SDC Y Race: C Location: [place] [address] Anesthesia Postop Eval I Sum Postop Eval Completion status Anesthesia document: Postop Eval 1 completed: Yes Anesthesia Postop Eval I Summary Anesthesia Postop Eval I Summary: Anesthesia Postop Eval I: Assessment Summary Airway patent Yes 04/13/24 08:53 [email or web address] Spontaneous unlabored Yes 04/13/24 08:53 [email or web address] respirations Mental status Awake,Calm 04/13/24 08:53 [email or web address] nausea No 04/13/24 08:53 [email or web address] Vomiting No 04/13/24 08:53 [email or web address] Anesthesia Postop Eval I: Fluid Summary Crystalloid volume administer 400 04/13/24 08:53 [email or web address] (ml) Colloids volume administered ( ml) Blood Product volume administered (ml) Total IV fluid infused 400 04/13/24 08:53 [email or web address] Anesthesia Postop Eval I: Summary Notes Anesthesia Complication No 04/13/24 08:53 [email or web address] Anesthesia Complication Comment: Post-operative progress note Anesthesia: Postop Eval II Evaluation Mental status: Awake Pain Level: 0 nausea: No Vomiting: No 04/13/24 0909 Date Gildardo Dominguez Signature: Date CC: Signed Normal [facility] ,Urineon 04-13-2024 Beta HCG ( test) Ql (U) Negative Normal [facility] Comment on above: Result Comment: Very dilute urine specimens, as indicated by a low specific gravity, may not contain front desk representative levels of hCG. If is still suspected, a first morning urine specimen should be collected 48 hours later and tested. Performed By: #### L [phone] #### [facility] [place], [address] Special Stain Group Ion 08-0 Special Stain Group I ----- Patient Age/Sex Location Account Attending Physician ----- NYLA JOHNSON EN [id number] Dr. Yumiko Andujar MD ----- Specimen: [id number] Received: 04/13/24 Status: ABRAHAM Ana Num: [id number] Spec Type: EGD BIOPSY Subm Dr: Dr. Yumiko Andujar MD HEADER OPERATION: EGD biopsy PRE-OP DIAGNOSIS: GERD, nausea TISSUE SUBMITTED: A- Gastric antrum, B- Gastroesophageal junction mucosa biopsy ----- MICROSCOPIC DIAGNOSIS A. Gastric antrum, biopsy: Mild chronic inflammation. See comment. B. Gastroesophageal junction mucosa, biopsy: Fragment of gastric mucosa with mild chronic inflammation. No evidence of goblet cell metaplasia. See comment. AM/mr 04/14/2024 COMMENT A. The results of immunohistochemistry for Helicobacter pylori will be reported separately ([id number]). B. Alcian blue/PAS stain with matched control is used in the evaluation of the specimen. MICROSCOPIC DESCRIPTION Slides are reviewed. GROSS DESCRIPTION A. Received in fixative is one container labeled with the patient's name and designated Gastric antrum biopsy. The specimen consists of one irregular fragment of gonzalez tissue measuring 0.5 x 0.1 x 0.1cm. The specimen is totally submitted in one cassette. b. Received in fixative is one container labeled with the patient's name and designated GE junction biopsy. The specimen consists of one irregular fragment of light gonzalez soft tissue that measures 0.3 x 0.3 x 0.1 cm. The specimen is totally submitted in one cassette. Thai 04/13/2024 TC: CPT:79564v8,21146 ----- Patient Age/Sex Location Account Attending Physician ----- NYLA JOHNSON EN [id number] Dr. Yumiko Andujar MD ----- Signed (signature on file) Dr. Win Weeks, DO 04/14/24 1145 ----- Normal [facility] Comment on above: Performed By: #### P SSI #### [facility] [address] [place], [place], [address] Surgery Visit Reporton 03-10 Surgery Visit Report [facility] [address] [place], [place] [address] OFFICE VISIT Date of Service: 03/10/24 MR#: [id number] Acct: [id number] Name: NYLA JOHNSON Rep #: [id number] : 1990 Provider: Dr. Yumiko simmons MD Age/Sex: 33/F Location: [facility] Status: Signed Intake Vital Signs 11/20/23 09:32 03/10/24 14:33 Height 5 ft 11 in 5 ft 11 in Weight: 141 lb BMI 19.6 BP 123/80 H Blood Pressure Location Rt brachial Position Sitting Respiration 18 Pulse 80 Pulse Source Monitor Temp 97.3 F L Temp Source Temporal Pulse Oximetry (%) 100 Oxygen Delivery Method room air Intake Visit Reasons: GERD, NAUSEA Chief Complaint: GERD, NAUSEA Accompanied by: Mother Is patient in pain?: No Allergies shellfish derived (seafood - shellfish) Adverse Reaction (Mild, Verified 03/10/24 14:34) Hives Medications ???Medication ???Instructions ???Recorded ???Confirmed ???Type cariprazine 1.5 mg capsule 1.5 mg PO DAILY 11/20/23 03/10/24 History (Vraylar) cetirizine 10 mg tablet (Zyrtec) 10 mg PO DAILY PRN allergy symptoms 11/20/23 03/10/24 History venlafaxine 75 mg capsule,extended 75 mg PO DAILY 11/20/23 03/10/24 History release 24 hr (Effexor XR) omeprazole 40 mg capsule,delayed 40 mg PO QDAY #30 caps 03/10/24 03/10/24 Rx release Have you fallen in the past year?: No PFSH Medical History (Updated 03/10/24 @ 14:[address] Yumiko Andujar MD) Generalized anxiety disorder Major depressive disorder, recurrent severe without psychotic features Surgical History (Updated 03/10/24 @ 14:33 by Lala Valencia LPN) Hx of colonoscopy Hx of LASIK HPI HPI HPI: 33-year-old female presents with her mom due to nausea, occasional vomiting and GERD. Patient states that she has nausea daily in the morning. Of occasionally every few months will wake up and vomit. Patient states she has reflux up her esophagus about twice a week. Patient had a colonoscopy in [place] in June 2023 which was negative. Patient has bowel moods daily does occasionally have some diarrhea. Patient occasionally has some lower abdominal pain more in the morning denies any upper abdominal pain. Patient has not been taking PPIs consistently. ROS General General: Yes fatigue; No weight change, appetite, colon cancer, breast cancer or weakness HEENT HEENT: Yes eye surgery; No difficulty swallowing, eye injury, swollen glands or hoarseness Additional Details: THOMAS Endo Endocrine: No thyroid disease, diabetes mellitus, thyroid cancer, Hair loss, heat intolerance or cold intolerance Skin Skin: No rash or changing moles Musc Musculoskeletal: No back problems, arthritis, rheumatoid arthritis, gout or joint pain Cardio Cardiovascular: No murmur, pacemaker, heart disease, atrial fibrillation, high blood pressure, heart attack, heart stent, palpitations, shortness of breat with exertion or chest pain Psych Psychiatric: Yes depression and anxiety; No hearing voices Resp Respiratory: Yes shortness of breath, No sleep apnea, No cough, No COPD, No asthma, No emphysema and No wheezing Gastro Gastrointestinal: Yes abdominal pain, Yes nausea or vomiting, Yes diarrhea, Yes constipation, No blood in stool, Yes acid reflux, Yes hemorrhoids, No ulcers, No gallbladder problem and No black,tarry stools Ivan Hematologic: No blood thinners, No blood disorders, No bleeding, No anemia and No blood clots Neuro Neurologic: No numbness, No tingling and No weakness Exam Const General: cooperative, healthy appearing, comfortable and no acute distress HENMT Head: normocephalic and atraumatic Neck Neck: supple Resp Effort Inspection: normal respiratory effort Cardio Rate: regular rate GI Inspection: non-distended Palpation: soft, no hernias and nontender Skin General: no rashes or lesions noted Neuro General: CN's II-XI intact bilaterally Extrem General: normal to inspection Psych Mental Status: mental status grossly normal Attitude: cooperative Assessment and Plan Assessment and Plan (1) GERD (gastroesophageal reflux disease): Status: Acute (2) Nausea: Status: Acute Medications: New omeprazole swallow whole; do not crush, chew, dissolve, cut, break 40 mg PO QDAY 30 caps 4RF Discontinued pantoprazole (Protonix) Discontinued Reason: Pt no longer taking 40 mg PO DAILY Plan Did discuss with patient would recommend taking omeprazole daily. Also discussed importance of high-fiber diet to help prevent constipation. I have discussed the above with the patient. I have offered the patient esophagogastroduodenoscopy for evaluation. I have explained the risks/benefits of the procedure and described the procedure. I have discussed the risks with the patient, (more content not included)... Normal [facility] 25-hydroxyvitamin D3 [Mass/Vol] 17.0 ng/mL Low 31.0-80.0 [facility] Comment on above: Order Comment: Speci men Type: BLOOD SPECIMEN Ordering Facility: [facility] Address: [address] [place] [address], [place] [address] Result Comment: Clas sification of 25 [place] Vitamin D status: Deficiency/Insufficiency: < or = 30 ng/ml. Sufficiency/Optimal Levels: 31-80 ng/mL Toxicity: > 100 ng/mL. Test performed by chemiluminescent immunoassay. Performed By: #### 1 989-3 #### [facility] CLIA [id number] [address] [place] [address] [place] CBC W Auto Differential pane l (Bld)on 11-15-2023 Basophils (Bld) [#/Vol] 0.06 10*3/uL Normal <0.11 [facility] Comment on above: Order Comment: Speci men Type: BLOOD SPECIMEN Ordering Facility: [facility] Address: [address] [place] [address], [place] [address] Performed By: #### 5 7021-8 #### [facility] CLIA [id number] [address] [place] [address] [place] Basophils/100 WBC (Bld) 1.0 % Normal [facility] Comment on above: Order Comment: Speci men Type: BLOOD SPECIMEN Ordering Facility: [facility] Address: [address] [place] [address], [place] [address] Performed By: #### 5 7021-8 #### [facility] CLIA [id number] [address] [place] [address] [place] Differential cell count method Nom (Bld) Auto Normal [facility] Comment on above: Order Comment: Speci men Type: BLOOD SPECIMEN Ordering Facility: [facility] Address: [address] [place] [address], [place] [address] Performed By: #### 5 7021-8 #### [facility] CLIA [id number] [address] [place] [address] [place] Eosinophils (Bld) [#/Vol] 0.32 10*3/uL Normal <0.46 [facility] Comment on above: Order Comment: Speci men Type: BLOOD SPECIMEN Ordering Facility: [facility] Address: [address] [place] [address], [place] [address] Performed By: #### 5 7021-8 #### [facility] CLIA [id number] [address] [place] [address] [place] Eosinophils/100 WBC (Bld) 5.5 % Normal [facility] Comment on above: Order Comment: Speci men Type: BLOOD SPECIMEN Ordering Facility: [facility] Address: [address] [place] [address] Performed By: #### 5 7021-8 #### [facility] CLIA [id number] [address] [place] [address] [place] Erythrocyte distribution width (RBC) [Ratio] 12.6 % Normal 11.5-15.0 [facility] Comment on above: Order Comment: Speci men Type: BLOOD SPECIMEN Ordering Facility: [facility] Address: [address] [place] [address] Performed By: #### 5 7021-8 #### [facility] CLIA [id number] [address] [place] [address] [place] Hematocrit (Bld) [Volume fraction] 44.9 % Normal 36.0-46.0 [facility] Comment on above: Order Comment: Speci men Type: BLOOD SPECIMEN Ordering Facility: [facility] Address: [address] [place] [address] Performed By: #### 5 7021-8 #### [facility] CLIA [id number] [address] [place] [address] [place] Hemoglobin (Bld) [Mass/Vol] 15.8 g/dL High 11.5-15.5 [facility] Comment on above: Order Comment: Speci men Type: BLOOD SPECIMEN Ordering Facility: [facility] Address: [address] [place] [address] Performed By: #### 5 7021-8 #### [facility] CLIA [id number] [address] [place] [address] [place] Immature granulocytes (Bld) [#/Vol] 10*3/uL Normal <0.10 [facility] Comment on above: Order Comment: Speci men Type: BLOOD SPECIMEN Ordering Facility: [facility] Address: [address] [place] [address] Performed By: #### 5 7021-8 #### [facility] CLIA [id number] [address] [place] [address] [place] Immature granulocytes/100 WBC (Bld) 0.2 % Normal [facility] Comment on above: Order Comment: Speci men Type: BLOOD SPECIMEN Ordering Facility: [facility] Address: [address] [place] [address] Performed By: #### 5 7021-8 #### [facility] CLIA [id number] [address] [place] [address] [place] Lymphocytes (Bld) [#/Vol] 2.21 10*3/uL Normal 1.00-4.00 [facility] Comment on above: Order Comment: Speci men Type: BLOOD SPECIMEN Ordering Facility: [facility] Address: [address] [place] [address] Performed By: #### 5 7021-8 #### [facility] CLIA [id number] [address] [place] [address] [place] Lymphocytes/100 WBC (Bld) 37.9 % Normal [facility] Comment on above: Order Comment: Speci men Type: BLOOD SPECIMEN Ordering Facility: [facility] Address: [address] [place] [address] Performed By: #### 5 7021-8 #### [facility] CLIA [id number] [address] [place] [address] [place] MCH (RBC) [Entitic mass] 31.2 pg Normal 26.0-34.0 [facility] Comment on above: Order Comment: Speci men Type: BLOOD SPECIMEN Ordering Facility: [facility] Address: [address] [place] [address] Performed By: #### 5 7021-8 #### [facility] CLIA [id number] [address] [place] [address] [place] MCHC (RBC) [Mass/Vol] 35.2 g/dL Normal 30.5-36.0 [facility] Comment on above: Order Comment: Speci men Type: BLOOD SPECIMEN Ordering Facility: [facility] Address: [address] [place], [place] [address] Performed By: #### 5 7021-8 #### [facility] CLIA [id number] [address] [place] [address] [place] MCV (RBC) [Entitic vol] 88.7 fL Normal 80.0-100.0 [facility] Comment on above: Order Comment: Speci men Type: BLOOD SPECIMEN Ordering Facility: [facility] Address: [address] [place] [address], [place] [address] Performed By: #### 5 7021-8 #### [facility] CLIA [id number] [address] [place] [address] [place] Monocytes (Bld) [#/Vol] 0.37 10*3/uL Normal <0.87 [facility] Comment on above: Order Comment: Speci men Type: BLOOD SPECIMEN Ordering Facility: [facility] Address: [address] [place] [address] Performed By: #### 5 7021-8 #### [facility] CLIA [id number] [address] [place] [address] [place] Monocytes/100 WBC (Bld) 6.3 % Normal [facility] Comment on above: Order Comment: Speci men Type: BLOOD SPECIMEN Ordering Facility: [facility] Address: [address] [place] [address], [place] [address] Performed By: #### 5 7021-8 #### [facility] CLIA [id number] [address] [place] [address] [place] Neutrophils (Bld) [#/Vol] 2.86 10*3/uL Normal 1.45-7.50 [facility] Comment on above: Order Comment: Speci men Type: BLOOD SPECIMEN Ordering Facility: [facility] Address: [address] [place] [address] Performed By: #### 5 7021-8 #### [facility] CLIA [id number] [address] [place] [address] [place] Neutrophils/100 WBC (Bld) 49.1 % Normal [facility] Comment on above: Order Comment: Speci men Type: BLOOD SPECIMEN Ordering Facility: [facility] Address: [address] [place] [address] Performed By: #### 5 7021-8 #### [facility] CLIA [id number] [address] [place] [address] [place] Nucleated RBC (Bld) [#/Vol] 10*3/uL Normal <0.01 [facility] Comment on above: Order Comment: Speci men Type: BLOOD SPECIMEN Ordering Facility: [facility] Address: [address] [place] [address] Performed By: #### 5 7021-8 #### [facility] CLIA [id number] [address] [place] [address] [place] Nucleated RBC/100 WBC (Bld) [Ratio] 0.0 /100 WBC Normal [facility] Comment on above: Order Comment: Speci men Type: BLOOD SPECIMEN Ordering Facility: [facility] Address: [address] [place] [address] Performed By: #### 5 7021-8 #### [facility] CLIA [id number] [address] [place] [address] [place] Platelet mean volume (Bld) [Entitic vol] 10.2 fL Normal 9.0-12.7 [facility] Comment on above: Order Comment: Speci men Type: BLOOD SPECIMEN Ordering Facility: [facility] Address: [address] [place] [address] Performed By: #### 5 7021-8 #### [facility] CLIA [id number] [address] [place] [address] [place] Platelets (Bld) [#/Vol] 234 10*3/uL Normal 150-400 [facility] Comment on above: Order Comment: Speci men Type: BLOOD SPECIMEN Ordering Facility: [facility] Address: [address] [place] [address] Performed By: #### 5 7021-8 #### [facility] CLIA [id number] [address] [place] [address] [place] RBC (Bld) [#/Vol] 5.06 10*6/uL Normal 3.90-5.20 [facility] Comment on above: Order Comment: Speci men Type: BLOOD SPECIMEN Ordering Facility: [facility] Address: [address] [place] [address] Performed By: #### 5 7021-8 #### [facility] CLIA [id number] [address] [place] [address] [place] WBC (Bld) [#/Vol] 5.83 10*3/uL Normal 3.70-11.00 [facility] Comment on above: Order Comment: Speci men Type: BLOOD SPECIMEN Ordering Facility: [facility] Address: [address] [place] [address] Performed By: #### 5 7021-8 #### [facility] CLIA [id number] [address] [place] [address] [place] Comprehensive metabolic 2000 panelon 11-15-2023 Albumin [Mass/Vol] 4.6 g/dL Normal 3.9-4.9 [facility] Comment on above: Order Comment: Speci men Type: BLOOD SPECIMEN Ordering Facility: [facility] Address: [address] [place] [address] Performed By: #### 2 132-9, 31971-9, 3016-3, 70725-8 #### [facility] CLIA [id number] [address] [place] [address] [place] ALP [Catalytic activity/Vol] 67 U/L Normal 34-123 [facility] Comment on above: Order Comment: Speci men Type: BLOOD SPECIMEN Ordering Facility: [facility] Address: [address] [facility], [place] [address] Performed By: #### 2 132-9, 52181-1, 3015-3, 71008-6 #### [facility] CLIA [id number] [address] [place] [address] [place] ALT [Catalytic activity/Vol] 16 U/L Normal 7-38 [facility] Comment on above: Order Comment: Speci men Type: BLOOD SPECIMEN Ordering Facility: [facility] Address: [address] [place] [address], [place] [address] Performed By: #### 2 132-9, 60656-3, 3015-3, 25613-4 #### [facility] CLIA [id number] [address] [place] [address] [place] Anion gap [Moles/Vol] 11 mmol/L Normal 9-18 [facility] Comment on above: Order Comment: Speci men Type: BLOOD SPECIMEN Ordering Facility: [facility] Address: [address] [place] [address], [place] [address] Performed By: #### 2 132-9, 90675-0, 3015-3, 05021-4 #### [facility] CLIA [id number] [address] [place] [address] [place] AST [Catalytic activity/Vol] 18 U/L Normal 13-35 [facility] Comment on above: Order Comment: Speci men Type: BLOOD SPECIMEN Ordering Facility: [facility] Address: [address] [place] [address], [place] [id number] Performed By: #### 2 132-9, 83273-5, 3015-3, 27326-0 #### [facility] CLIA [id number] [address] [place] [address] [place] Bilirubin [Mass/Vol] 0.3 mg/dL Normal 0.2-1.3 [facility] Comment on above: Order Comment: Speci men Type: BLOOD SPECIMEN Ordering Facility: [facility] Address: [address] [place] [address], [place] [address] Performed By: #### 2 132-9, 69352-5, 3015-3, 78305-4 #### [facility] CLIA [id number] [address] [place] [address] [place] Calcium [Mass/Vol] 9.5 mg/dL Normal 8.5-10.2 [facility] Comment on above: Order Comment: Speci men Type: BLOOD SPECIMEN Ordering Facility: [facility] Address: [address] [place] [address] Performed By: #### 2 132-9, 06596-9, 3015-3, 03196-6 #### [facility] CLIA [id number] [address] [place] [address] [place] Chloride [Moles/Vol] 103 mmol/L Normal 97-105 [facility] Comment on above: Order Comment: Speci men Type: BLOOD SPECIMEN Ordering Facility: [facility] Address: [address] [place] [address] Performed By: #### 2 132-9, 23522-4, 3015-3, 67411-5 #### [facility] CLIA [id number] [address] [place] [address] [place] CO2 [Moles/Vol] 26 mmol/L Normal 22-30 [facility] Comment on above: Order Comment: Speci men Type: BLOOD SPECIMEN Ordering Facility: [facility] Address: [address] [place] [address] Performed By: #### 2 132-9, 95584-2, 3015-3, 43663-6 #### [facility] CLIA [id number] [address] [place] [address] [place] Creatinine [Mass/Vol] 0.77 mg/dL Normal 0.58-0.96 [facility] Comment on above: Order Comment: Speci men Type: BLOOD SPECIMEN Ordering Facility: [facility] Address: [address] [place] [address], [place] [id number] Performed By: #### 2 132-9, 02299-8, 3016-3, 23820-3 #### [facility] CLIA [id number] [address] [place] [address] [place] Creatinine and Glomerular filtration rate.predicted panel (S/P/Bld) 106 mL/min/1.73m??? Normal >=60 [facility] Comment on above: Order Comment: Sadaf vazquez Type: BLOOD SPECIMEN Ordering Facility: [facility] Address: [address] [place] [address], [place] [address] Result Comment: [place] mated Glomerular Filtration Rate (eGFR) is calculated using the 2020 CKD-EPI creatinine equation. This equation utilizes serum creatinine, sex, and age as parameters. The creatinine assay has traceable calibration to isotope dilution-mass spectrometry. Refer to KDIGO guidelines for clinical interpretation. In patients with unstable renal function, e.g. those with acute kidney injury, the eGFR may not accurately reflect actual GFR. Performed By: #### 2 132-9, 80549-2, 3016-3, 02721-0 #### [facility] CLIA [id number] [address] [place] [address] [place] Glucose [Mass/Vol] 96 mg/dL Normal 74-99 [facility] Comment on above: Order Comment: Sadaf vazquez Type: BLOOD SPECIMEN Ordering Facility: [facility] Address: [address] [place] [address], [place] [address] Result Comment: The [place] Diabetes Association (ADA) provides guidance for cutoff values for fasting glucose and random glucose. The ADA defines fasting as no caloric intake for at least 8 hours. Fasting plasma glucose results between 100 to 125 mg/dL indicate increased risk for diabetes (prediabetes). Fasting plasma glucose results greater than or equal to 126 mg/dL meet the criteria for diagnosis of diabetes. In the absence of unequivocal hyperglycemia, results should be confirmed by repeat testing. In a patient with classic symptoms of hyperglycemia or hyperglycemic crisis, random plasma glucose results greater than or equal to 200 mg/dL meet the criteria for diagnosis of diabetes. Reference: Standards of Medical Care in Diabetes 2016, [place] [employer] Association. Diabetes Care. 2016.39(Suppl 1). Performed By: #### 2 132-9, 30942-3, 3015-3, 26424-8 #### [facility] CLIA [id number] [address] [place] [address] [place] Potassium [Moles/Vol] 4.1 mmol/L Normal 3.7-5.1 [facility] Comment on above: Order Comment: Speci men Type: BLOOD SPECIMEN Ordering Facility: [facility] Address: [address] [place] [address] Performed By: #### 2 132-9, 03235-1, 3015-3, #### [facility] CLIA [id number] [address] [place], [place] [id number] [place] Protein [Mass/Vol] 7.1 g/dL Normal 6.3-8.0 [facility] Comment on above: Order Comment: Speci men Type: BLOOD SPECIMEN Ordering Facility: [facility] Address: [address] [place] [address] Performed By: #### 2 132-9, 52788-1, 3015-3, #### [facility] CLIA [id number] [address] [place], [place] [address] [place] Sodium [Moles/Vol] 140 mmol/L Normal 136-144 [facility] Comment on above: Order Comment: Speci men Type: BLOOD SPECIMEN Ordering Facility: [facility] Address: [address] [place] [address] Performed By: #### 2 132-9, 88682-8, 3015-3, 02621-1 #### [facility] CLIA [id number] [address] [place] [address] [place] Urea nitrogen [Mass/Vol] 9 mg/dL Normal 7-21 [facility] Comment on above: Order Comment: Speci men Type: BLOOD SPECIMEN Ordering Facility: [facility] Address: [address] [place] [address], [place] [address] Performed By: #### 2 132-9, 67523-4, 3016-3, 37397-7 #### [facility] CLIA [id number] [address] [place] [address] [place] Iron and Iron binding capaci ty panelon 11-15-2023 Iron [Mass/Vol] 93 ug/dL Normal 41-186 [facility] Comment on above: Order Comment: Speci men Type: BLOOD SPECIMEN Ordering Facility: [facility] Address: [address] [place] [address], [place] [address] Performed By: #### 2 132-9, 78286-5, 6-3, 05158-8 #### [facility] CLIA [id number] [address] [place] [address] [place] Iron binding capacity [Mass/Vol] 288 ug/dL Normal 232-386 [facility] Comment on above: Order Comment: Speci men Type: BLOOD SPECIMEN Ordering Facility: [facility] Address: [address] [place] [address], [place] [address] Performed By: #### 2 132-9, 02876-5, 3016-3, 01986-9 #### [facility] CLIA [id number] [address] [place] [address] [place] Iron/TIBC [Molar ratio] 32.3 % Normal 15.0-57.0 [facility] Comment on above: Order Comment: Speci men Type: BLOOD SPECIMEN Ordering Facility: [facility] Address: [address] [place] [address], [place] [address] Performed By: #### 2 132-9, 33027-3, 3016-3, 94091-3 #### [facility] CLIA [id number] [address] [place] [address] [place] TSH SerPl-aCncon 11-15-2023 TSH Qn 1.930 m[IU]/L Normal 0.270-4.200 [facility] Comment on above: Order Comment: Sadaf vazquez Type: BLOOD SPECIMEN Ordering Facility: [facility] Address: [address] [place] [address] [place] [address] Result Comment: If t he patient is , TSH reference range varies by gestational period: First Trimester (weeks 9-12): 0.180-2.990 mIU/L Second Trimester: 0.110-3.980 mIU/L Third Trimester: 0.480-4.710 mIU/L Dima Pagan et al. A Practical Approach for the Verifications and Determination of Site- and Trimester-Specific Reference Intervals for Thyroid Function tests in . Thyroid, 2019:29:3:412-420. Freddy Mares, et al. 2017 Guidelines of the [place] Thyroid Association for the Diagnosis and Management of Thyroid Disease during and the . Thyroid, 2017:27:3:315-389. Performed By: #### 2 132-9, 77220-9, 3016-3, 06338-7 #### [facility] CLIA [id number] [facility] [place] [id number] [place] Vit B12 [facility] 024 Cobalamin (Vitamin B12) [Mass/Vol] 546 pg/mL Normal 232-1245 [facility] Comment on above: Order Comment: Sadaf vazquez Type: BLOOD SPECIMEN Ordering Facility: [facility] Address: [address] [place] [address], [place] [address] Performed By: #### 2 132-9, 34567-4, 3016-3, 99120-6 #### [facility] CLIA [id number] [facility] [place] [id number] [place] Encounters Encounter Date Encounter Type Care Provider Facility Start: 10-09-2024 Encounter for other preprocedural examination Yumiko Andujar [facility] Start: 04-13-2024 End: 04-13-2024 ambulatory Neil Cervantes Aman Facility:[facility] Start: 03-10-2024 End: 03-10-2024 ambulatory Yumiko Andujar Facility:[facility] Start: 12-09-2023 End: 01-02-2024 ambulatory Cristiana Louie Facility:[facility] Start: 11-18-2023 End: 12-08-2023 ambulatory Cristiana Louie Facility:[facility] Start: 11-15-2023 End: 11-16-2023 ambulatory RICHARD ROBLERO Facility:[facility] Payers Date Payer Category Payer Self-pay 2023 Unknown [id number] 2019 Unknown [id number] Unknown [id number] 2.16.8 [id number] Unknown [id number] 2.16.8 [id number] Unknown [id number] 2.16.8 [id number] Unknown [id number] 2.16.8 [id number] Unknown [id number] 2.16.8 [id number] Clinical Note 04-13-2024 Note Date & Type Note Facility 04-13-2024 Note [facility] Medical Records Department [address] [place] [address] History Physical Exam 04/13/24 0712 MR#: [id number] Acct: [id number] Name: NYLA JOHNSON Rep #: [id number] : 1990 33 From: Yumiko Andujar MD PCP: Neil Cervantes [facility] Status:[facility] Location: [place] [address]1 HPI - General General Date of Service: 04/13/24 HPI Narrative NYLA JOHNSON, is a 33 F who presents for an EGD due to daily nausea as well as some more lower abdominal pain. Patient states the omeprazole has helped some but she still has it daily. office visit 03/10/24 HPI HPI: 33-year-old female presents with her mom due to nausea, occasional vomiting and GERD. Patient states that she has nausea daily in the morning. Of occasionally every few months will wake up and vomit. Patient states she has reflux up her esophagus about twice a week. Patient had a colonoscopy in [place] in June 2023 which was negative. Patient has bowel movements daily does occasionally have some diarrhea. Patient occasionally has some lower abdominal pain more in the morning denies any upper abdominal pain. Patient has not been taking PPIs consistently. [facility] Medical History Wears glasses Alcohol use Marijuana use Electronic cigarette use Smoker Generalized anxiety disorder Major depressive disorder, recurrent severe without psychotic features Home Medications ???Medication ???Instructions ???Recorded ???Last Taken ???Type cetirizine 10 mg tablet (Zyrtec) 10 mg PO DAILY PRN allergy symptoms 11/20/23 Unknown History venlafaxine 75 mg capsule,extended 75 mg PO DAILY 11/20/23 04/13/24 History release 24 hr (Effexor XR) omeprazole 40 mg capsule,delayed 40 mg PO QDAY #30 caps 03/10/24 Unknown Rx release bupropion HCl 150 mg 24 hr tablet, 300 mg PO DAILY 04/09/24 04/13/24 History extended release Allergy/AdvReac Type Severity Reaction Status Date / Time shellfish derived (seafood AdvReac Mild Hives Verified 04/13/24 07:43 - shellfish) Surgical History Hx of colonoscopy Hx of LASIK Social History Smoking Status: Current every day smoker tobacco type: e-cigarettes Past Medical/Surgical History Planned Operation Planned Operative Procedure(s): EGD Previous Hospitalizations/Surgeries HX Hospitalizations: No Any Problems With Anesthesia: No You/Your Family Experience Fever (Hyperthermia) With Anes: No Cholinesterase deficiency: No Cardiovascular Hx Hypertension: No Respiratory Hx Sleep Apnea: No Hx Respiratory Tract Infection/Cold (presently): No Do You Snore Loudly (louder than talking or can be heard): No Do You Often Feel Tired/ Fatigued/ Sleepy Dring Daytime?: No Has Anyone Observed You Stop Breathing During Sleep?: No Result (for STOP score): Negative Smoking Status: Current every day smoker Neurological Does patient have nerve stimulator: No Reproduction : No Allergies shellfish derived (seafood - shellfish) Adverse Reaction (Mild, Verified 04/13/24 07:43) Hives Discharge Is Pt Admitted From a [facility], or a Intermediate: No After D/C, Where Do you Plan to Go: Return Home Physical Exam Const alert, oriented x3 and no apparent distress HEENT normocephalic and head/scalp atraumatic Resp normal respiratory effort Cardio regular rate GI soft to palpation and non-tender; Negative for non-distended Palpation: Negative for guarding Extremity no clubbing, cyanosis or edema Skin no rashes or lesions noted Neuro CN's II-XII intact bilaterally Psych mental status grossly normal Assessment Plan Assessment/Plan (1) GERD (gastroesophageal reflux disease): (2) Nausea: Surgery Risks - Colonoscopy I discussed with the patient the risks of the procedure: Yes Risks Include but are not Limited To: Plan for an EGD risks include but are not limited to: Bleeding, perforation requiring further surgery 04/13/24 0751 Cosigner Signature (if applicable): CC: [facility] [employer] Neil Cervantes; Dr. Yumiko Andujar MD Signed [facility] Summary Purpose Family History No Family History Records FoundNo Family History Records Found Advance Directives No Advanced Directives Records FoundNo Advanced Directives Records Found Additional Source Comments INFORMATION SOURCE (unrecogn ized section and content) DATE CREATED AUTHOR 11/17/2023 [facility] DATE CREATED AUTHOR AUTHOR'S JANINE BALDERAS 10/11/2024 [facility] FOR RECORDS PERTAINING TO PATIENTS WHO ARE OR HAVE BEEN ENROLLED IN A CHEMICAL DEPENDENCY/SUBSTANCEABUSE PROGRAM, SOME INFORMATION MAY BE OMITTED. This clinical summary was aggregated from multiple sources. Caution should be exercised in using it in the provision of clinical care. This summary normalizes information from multiple sources, and as a consequence, information in this document may materially change the coding, format and clinical context of patient data. In addition, data may be omitted in some cases. CLINICAL DECISIONS SHOULD BE BASED ON THE PRIMARY CLINICAL RECORDS. [employer] provides no warranty or guarantee of the accuracy or completeness of information in this document.
[2025-04-13 08:08] LABS: Calprotectin, Stool 17 ug/g (0-120)
[2025-04-15 11:08] LABS: H. PYLORI STOOL AG Negative (Negative); Pancreatic Elastase, Fecal > 800 (>200)
== END | disposition home or self-care (01) ==
LOC: LAB 10:40
PROVIDERS: PCP Nurse Practitioner Family
DX: R19.7 Diarrhea, unspecified (principal); K21.9 Gastro-esophageal reflux disease without esophagitis; K59.00 Constipation, unspecified
CPT/HCPCS: 82653; 83993; 87338

== ENCOUNTER 2025-05-13 06:12 | Day surgery (SDC) | payer MEDICAID, SELFPAY ==
[2025-05-13] VITALS (8 sets, daily range): BP systolic 98–107; BP diastolic 54–79; PULSE 68–85; RESP 16; TEMP 36.1–36.4; O2SAT 100; BMI 22.1
--- OUTSIDE RECORDS SUMMARY | 2025-05-13 06:15 | XMS RPT_ITS | CCD ---
Author Organization [facility] Care Team Providers Care Allergist/Pediatric Pulmonologist Name Role Phone RICHARD ROBLERO Primary Care Unavailable BILLY, NEIL Referring Unavailable Friend, Mehdi Attending Unavailable Billy VSC, Neil Referring Unavailabl e Billy VSC, Neil Primary Care Unavailabl e Billy VSC, Neil Primary Care Unavailabl e De Paz, Leonor Referring Unavailable De Paz, Leonor Attending Unavailable Billy VSC, Neil Primary Care Unavailabl e De Paz, Leonor Referring Unavailable De Paz, Leonor Attending Unavailable Billy VSC, Neil Referring Unavailabl e Billy VSC, Neil Primary Care Unavailabl e De Paz, Leonor Attending Unavailable Allergies Allergy Classification Reported Allergen(s) Allergy Type Date of Onset Reaction(s) Facility (1 source) Shellfish Drug allergy (disorder) 05-07-2025 [facility] Repository Problems Problem Classification Problem Date Documented Da te Episodic/Chronic Esophageal disorders (1 source) Gastro-esophage al reflux disease without esophagitis; Translations: [Gastro-esophag eal reflux disease without esophagitis] Onset: 04-09-2025 Chronic Malaise and fatigue (1 source) Other fatigue; Translations: [Other fatigue] Onset: 11-15-2023 Episodic Nausea and vomiting (2 sources) Nausea with vomiting, unspecified; Translations: [Nausea] Onset: 11-15-2023 Episodic Other gastrointestinal disorders (1 source) Diarrhea, unspecified; Translations: [Diarrhea, unspecified] Onset: 04-15-2025 Episodic Other gastrointestinal disorders (1 source) Constipation, unspecified; Translations: [Constipation, unspecified] Onset: 04-09-2025 Episodic Results Test Name Value Interpretation Reference Range Facility L2100.0000on 04-28-2025 ACCA 44 units Normal 0-90 [facility] Comment on above: Result Comment: Nega tive: <80 Equivocal: 80-90 Positive: >90 Performed By: #### L 2100.0000, L506.1001, L500.4050, L501.9520, L5500.0550, L501.6710, L503.0106, L100.0100 #### [facility] [address] [place], [place], [id number] ALCA 21 units Normal 0-60 [facility] Comment on above: Result Comment: Nega tive:<55 Equivocal: 55-60 Positive: >60 Performed By: #### L 2100.0000, L506.1001, L500.4050, L501.9520, L5500.0550, L501.6710, L503.0106, L100.0100 #### [facility] [address] [place], [place], [id number] AMCA 101 units High 0-100 [facility] Comment on above: Result Comment: Nega tive: <90 Equivocal: 90-100 Positive: >100 This test was developed and its performance characteristics determined by [employer]. It has not been cleared or approved by the Food and Drug Administration. The FDA has determined that such clearance or approval is not necessary. Performed By: #### L 2100.0000, L506.1001, L500.4050, L501.9520, L5500.0550, L501.6710, L503.0106, L100.0100 #### [facility] [address] [place], [place], [id number] Atypical pANCA Negative Normal Negative [facility] Comment on above: Performed By: #### L 2100.0000, L506.1001, L500.4050, L501.9520, L5500.0550, L501.6710, L503.0106, L100.0100 #### [facility] [address] [place], [place], [id number] COMMENT Comment Abnormal . [facility] Comment on above: Result Comment: Sugg estive of Crohn's Disease. Pattern is not conclusive for disease behavior risk stratification. Performed at: [address] [id number] Web Site Project Manager: Stephany Rosen MD, Phone: [phone] Performed By: #### L 2100.0000, L506.1001, L500.4050, L501.9520, L5500.0550, L501.6710, L503.0106, L100.0100 #### [facility] [address] [place], [address] Eugenia 24 units Normal 0-50 [facility] Comment on above: Result Comment: Nega tive: <45 Equivocal: 45-50 Positive: >50 Performed By: #### L 2100.0000, L506.1001, L500.4050, L501.9520, L5500.0550, L501.6710, L503.0106, L100.0100 #### [facility] [address] [place], [place], [id number] H. PYLORI STOOL AGon 025 H PYLORI STL AG Negative Normal Negative [facility] Comment on above: Result Comment: Perf ormed at: [address] [id number] Web Site Project Manager: Stephany Rosen MD, Phone: [phone] Performed at: [address] [id number] Web Site Project Manager: Candido Horn PhD, Phone: [phone] Performed By: #### L 7000.0700, L7000.0750, L3100.1950 #### [facility] [address] [place], [address] L7000.0750on 04-15-2025 P ELASTASE,FECA > 800 Normal >200 [facility] Comment on above: Result Comment: Resu lt Units: ug Elast./g Severe Pancreatic Insufficiency: <100 Moderate Pancreatic Insufficiency: 100 - 200 Normal: >200 Performed By: #### L 2100.0000, L506.1001, L500.4050, L501.9520, L5500.0550, L501.6710, L503.0106, L100.0100 #### [facility] [address] [place], [place], [id number] Allergen, Food Profile 14on 04-14-2025 BEEF <0.10 Normal Class 0 [facility] Comment on above: Performed By: #### L 2100.0000, L506.1001, L500.4050, L501.9520, L5500.0550, L501.6710, L503.0106, L100.0100 #### [facility] [address] [place], [place], [id number] CHOCOLATE <0.10 Normal Class 0 [facility] Comment on above: Performed By: #### L 2100.0000, L506.1001, L500.4050, L501.9520, L5500.0550, L501.6710, L503.0106, L100.0100 #### [facility] [address] [place], [place], [id number] CODFISH <0.10 Normal Class 0 [facility] Comment on above: Performed By: #### L 2100.0000, L506.1001, L500.4050, L501.9520, L5500.0550, L501.6710, L503.0106, L100.0100 #### [facility] [address] [place], [place], [id number] COMMENT Comment Normal . [facility] Comment on above: Result Comment: Mary mcrae of Specific IgE Class Description of Class ----- < 0.10 0 Negative 0.10 - 0.31 0/I Equivocal/Low 0.32 - 0.55 I Low 0.56 - 1.40 II Moderate 1.41 - 3.90 III High 3.91 - 19.00 IV Very High 19.01 - 100.00 V Very High >100.00 Very High Performed By: #### L 2100.0000, L506.1001, L500.4050, L501.9520, L5500.0550, L501.6710, L503.0106, L100.0100 #### [facility] [address] [place], [place], [id number] ([phone] CORN <0.10 Normal Class 0 [facility] Comment on above: Performed By: #### L 2100.0000, L506.1001, L500.4050, L501.9520, L5500.0550, L501.6710, L503.0106, L100.0100 #### [facility] [address] [facility] [place], [place], [id number] ([phone]) EGG, WHOLE <0.10 Normal Class 0 [facility] Comment on above: Result Comment: Perf ormed at: - [facility] [id number] Web Site Project Manager: Stephany Rosen MD, Phone: [phone] Performed By: #### L 2100.0000, L506.1001, L500.4050, L501.9520, L5500.0550, L501.6710, L503.0106, L100.0100 #### [facility] [address] [facility] [place], [place], [id number] MILK (COW) 0.17 kU/L Abnormal Class 0/I [facility] Comment on above: Performed By: #### L 2100.0000, L506.1001, L500.4050, L501.9520, L5500.0550, L501.6710, L503.0106, L100.0100 #### [facility] [address] [place], [place], [id number] (857) MUSSELS <0.10 Normal Class 0 [facility] Comment on above: Performed By: #### L 2100.0000, L506.1001, L500.4050, L501.9520, L5500.0550, L501.6710, L503.0106, L100.0100 #### [facility] [address] [place], [address] PEANUT 0.25 kU/L Abnormal Class 0/I [facility] Comment on above: Performed By: #### L 2100.0000, L506.1001, L500.4050, L501.9520, L5500.0550, L501.6710, L503.0106, L100.0100 #### [facility] [address] [place], [address] PORK <0.10 Normal Class 0 [facility] Comment on above: Performed By: #### L 2100.0000, L506.1001, L500.4050, L501.9520, L5500.0550, L501.6710, L503.0106, L100.0100 #### [facility] [address] [place], [address] SALMON 0.22 kU/L Abnormal Class 0/I [facility] Comment on above: Performed By: #### L 2100.0000, L506.1001, L500.4050, L501.9520, L5500.0550, L501.6710, L503.0106, L100.0100 #### [facility] [address] [place], [address] SHRIMP <0.10 Normal Class 0 [facility] Comment on above: Performed By: #### L 2100.0000, L506.1001, L500.4050, L501.9520, L5500.0550, L501.6710, L503.0106, L100.0100 #### [facility] [address] [place], [address] SOYBEAN <0.10 Normal Class 0 [facility] Comment on above: Performed By: #### L 2100.0000, L506.1001, L500.4050, L501.9520, L5500.0550, L501.6710, L503.0106, L100.0100 #### [facility] [address] [place], [place], [id number] TUNA <0.10 Normal Class 0 [facility] Comment on above: Performed By: #### L 2100.0000, L506.1001, L500.4050, L501.9520, L5500.0550, L501.6710, L503.0106, L100.0100 #### [facility] [address] [place], [place], [id number] WHEAT 0.15 kU/L Abnormal Class 0/I [facility] Comment on above: Performed By: #### L 2100.0000, L506.1001, L500.4050, L501.9520, L5500.0550, L501.6710, L503.0106, L100.0100 #### [facility] [address] [place], [place], [id number] Calprotectin, Stoolon [address] 17 ug/g Normal 0-120 [facility] Comment on above: Result Comment: Conc entration Interpretation Follow-Up < 5 - 50 ug/g Normal None >50 -120 ug/g Borderline Re-evaluate in 4-6 weeks >120 ug/g Abnormal Repeat as clinically indicated Performed at: [facility] [address] [id number] Web Site Project Manager: Stephany Rosen MD, Phone: [phone] Performed By: #### L 7000.0700, L7000.0750, L3100.1950 #### [facility] [address] [place], [place], [id number] CBC W/Diff, Automatedon 08-0 Absolute Lymph 2.86 X10 3/uL Normal 0.83-4.51 [facility] Comment on above: Performed By: #### L 2100.0000, L506.1001, L500.4050, L501.9520, L5500.0550, L501.6710, L503.0106, L100.0100 #### [facility] [address] [place], [address] Absolute Neut 5.6 X10 3/uL Normal 2.0-7.7 [facility] Comment on above: Performed By: #### L 2100.0000, L506.1001, L500.4050, L501.9520, L5500.0550, L501.6710, L503.0106, L100.0100 #### [facility] [address] [place], [address] Basophils/100 WBC (Bld) 0.8 % Normal 0-1 [facility] Comment on above: Performed By: #### L 2100.0000, L506.1001, L500.4050, L501.9520, L5500.0550, L501.6710, L503.0106, L100.0100 #### [facility] [address] [place], [address] Eosinophils/100 WBC (Bld) 2.2 % Normal 0-5 [facility] Comment on above: Performed By: #### L 2100.0000, L506.1001, L500.4050, L501.9520, L5500.0550, L501.6710, L503.0106, L100.0100 #### [facility] [address] [place], [address] Erythrocyte distribution width (RBC) [Ratio] 12.4 % Normal 11.6-14.6 [facility] Comment on above: Performed By: #### L 2100.0000, L506.1001, L500.4050, L501.9520, L5500.0550, L501.6710, L503.0106, L100.0100 #### [facility] [address] [place], [address] Hematocrit (Bld) [Volume fraction] 42.2 % Normal 37-47 [facility] Comment on above: Performed By: #### L 2100.0000, L506.1001, L500.4050, L501.9520, L5500.0550, L501.6710, L503.0106, L100.0100 #### [facility] [address] [place], [address] Hemoglobin (Bld) [Mass/Vol] 15.7 g/dL High 12.0-15.0 [facility] Comment on above: Performed By: #### L 2100.0000, L506.1001, L500.4050, L501.9520, L5500.0550, L501.6710, L503.0106, L100.0100 #### [facility] [address] [place], [address] IG% 0.300 Normal 0.0-0.9 [facility] Comment on above: Result Comment: IG% - Immature Granulocytes (promyelocytes, myelocytes and metamyelocytes) > 1% indicates that a LEFT SHIFT is Present. Performed By: #### L 2100.0000, L506.1001, L500.4050, L501.9520, L5500.0550, L501.6710, L503.0106, L100.0100 #### [facility] [address] [place], [address] Lymphocytes/100 WBC (Bld) 30.8 % Normal 19-41 [facility] Comment on above: Performed By: #### L 2100.0000, L506.1001, L500.4050, L501.9520, L5500.0550, L501.6710, L503.0106, L100.0100 #### [facility] [address] [place], [address] MCH (RBC) [Entitic mass] 31.5 pg Normal 27.0-32.0 [facility] Comment on above: Performed By: #### L 2100.0000, L506.1001, L500.4050, L501.9520, L5500.0550, L501.6710, L503.0106, L100.0100 #### [facility] [address] [place], [address] MCHC (RBC) [Mass/Vol] 37.2 g/dL High 32-36 [facility] Comment on above: Performed By: #### L 2100.0000, L506.1001, L500.4050, L501.9520, L5500.0550, L501.6710, L503.0106, L100.0100 #### [facility] [address] [place], [address] MCV (RBC) [Entitic vol] 84.6 fL Normal 81-99 [facility] Comment on above: Performed By: #### L 2100.0000, L506.1001, L500.4050, L501.9520, L5500.0550, L501.6710, L503.0106, L100.0100 #### [facility] [address] [place], [address] Monocytes/100 WBC (Bld) 5.9 % Normal 0-10 [facility] Comment on above: Performed By: #### L 2100.0000, L506.1001, L500.4050, L501.9520, L5500.0550, L501.6710, L503.0106, L100.0100 #### [facility] [address] [place], [address] Neutrophils/100 WBC (Bld) 60.0 % Normal 47-70 [facility] Comment on above: Performed By: #### L 2100.0000, L506.1001, L500.4050, L501.9520, L5500.0550, L501.6710, L503.0106, L100.0100 #### [facility] [address] [place], [address] Nucleated RBC (Bld) [#/Vol] 0 10*3/uL Normal 0-5 [facility] Comment on above: Performed By: #### L 2100.0000, L506.1001, L500.4050, L501.9520, L5500.0550, L501.6710, L503.0106, L100.0100 #### [facility] [address] [place], [address] Platelet mean volume (Bld) [Entitic vol] 9.3 fL Normal 6.2-12.0 [facility] Comment on above: Performed By: #### L 2100.0000, L506.1001, L500.4050, L501.9520, L5500.0550, L501.6710, L503.0106, L100.0100 #### [facility] [address] [place], [address] Platelets (Bld) [#/Vol] 226 10*3/uL Normal 150-450 [facility] Comment on above: Performed By: #### L 2100.0000, L506.1001, L500.4050, L501.9520, L5500.0550, L501.6710, L503.0106, L100.0100 #### [facility] [address] [place], [address] RBC (Bld) [#/Vol] 4.99 10*6/uL Normal 4.2-5.4 [facility] Comment on above: Performed By: #### L 2100.0000, L506.1001, L500.4050, L501.9520, L5500.0550, L501.6710, L503.0106, L100.0100 #### [facility] [address] [place], [address] RDW SD 37.5 fl Normal 35.1-43.9 [facility] Comment on above: Performed By: #### L 2100.0000, L506.1001, L500.4050, L501.9520, L5500.0550, L501.6710, L503.0106, L100.0100 #### [facility] [address] [place], [address] WBC (Bld) [#/Vol] 9.3 10*3/uL Normal 4.4-11.0 [facility] Comment on above: Performed By: #### L 2100.0000, L506.1001, L500.4050, L501.9520, L5500.0550, L501.6710, L503.0106, L100.0100 #### [facility] [address] [place], [address] CRPon 04-09-2025 C-REACTIVE PROT < 3.00 Normal 0.0-3.0 [facility] Comment on above: Performed By: #### L 2100.0000, L506.1001, L500.4050, L501.9520, L5500.0550, L501.6710, L503.0106, L100.0100 #### [facility] [address] [place], [address] Comprehensive Metabolic Prof ilon 04-09-2025 Albumin [Mass/Vol] 4.6 g/dL Normal 3.5-5.0 [facility] Comment on above: Performed By: #### L 2100.0000, L506.1001, L500.4050, L501.9520, L5500.0550, L501.6710, L503.0106, L100.0100 #### [facility] [address] [place], [address] Albumin/Globulin [Mass ratio] 1.7 {ratio} Normal 0.9-2.4 [facility] Comment on above: Performed By: #### L 2100.0000, L506.1001, L500.4050, L501.9520, L5500.0550, L501.6710, L503.0106, L100.0100 #### [facility] [address] [place], [address] ALK PHOS 67 U/L Normal 35-104 [facility] Comment on above: Performed By: #### L 2100.0000, L506.1001, L500.4050, L501.9520, L5500.0550, L501.6710, L503.0106, L100.0100 #### [facility] [address] [place], [address] ALT [Catalytic activity/Vol] 12 U/L Normal <=34 [facility] Comment on above: Performed By: #### L 2100.0000, L506.1001, L500.4050, L501.9520, L5500.0550, L501.6710, L503.0106, L100.0100 #### [facility] [address] [place], [address] AST [Catalytic activity/Vol] 15 U/L Normal <=31 [facility] Comment on above: Performed By: #### L 2100.0000, L506.1001, L500.4050, L501.9520, L5500.0550, L501.6710, L503.0106, L100.0100 #### [facility] [address] [place], [address] Bilirubin [Mass/Vol] 0.47 mg/dL Normal 0.00-1.30 [facility] Comment on above: Performed By: #### L 2100.0000, L506.1001, L500.4050, L501.9520, L5500.0550, L501.6710, L503.0106, L100.0100 #### [facility] [address] [place], [address] BUN/CRE 13.3 RATIO Normal 10-20 [facility] Comment on above: Performed By: #### L 2100.0000, L506.1001, L500.4050, L501.9520, L5500.0550, L501.6710, L503.0106, L100.0100 #### [facility] [address] [place], [address] Calcium [Mass/Vol] 9.6 mg/dL Normal 7.6-11.0 [facility] Comment on above: Performed By: #### L 2100.0000, L506.1001, L500.4050, L501.9520, L5500.0550, L501.6710, L503.0106, L100.0100 #### [facility] [address] [place], [address] Chloride [Moles/Vol] 105 mmol/L Normal 98-108 [facility] Comment on above: Performed By: #### L 2100.0000, L506.1001, L500.4050, L501.9520, L5500.0550, L501.6710, L503.0106, L100.0100 #### [facility] [address] [place], [address] CO2 [Moles/Vol] 18.8 mmol/L Low 21.0-32.0 [facility] Comment on above: Performed By: #### L 2100.0000, L506.1001, L500.4050, L501.9520, L5500.0550, L501.6710, L503.0106, L100.0100 #### [facility] [address] [place], [address] Creatinine [Mass/Vol] 0.70 mg/dL Normal 0.70-1.20 [facility] Comment on above: Performed By: #### L 2100.0000, L506.1001, L500.4050, L501.9520, L5500.0550, L501.6710, L503.0106, L100.0100 #### [facility] [address] [place], [address] GAP 14 Normal 5-15 [facility] Comment on above: Performed By: #### L 2100.0000, L506.1001, L500.4050, L501.9520, L5500.0550, L501.6710, L503.0106, L100.0100 #### [facility] [address] [place], [address] GFR/1.73 sq M.predicted among non-blacks MDRD (S/P/Bld) [Vol rate/Area] 118 mL/min/{1.73_m2} Normal >60 [facility] Comment on above: Result Comment: mL/m in/1.73m2 CKD-EPI Creatinine Equation (2020) Performed By: #### L 2100.0000, L506.1001, L500.4050, L501.9520, L5500.0550, L501.6710, L503.0106, L100.0100 #### [facility] [address] [place], [address] Globulin (S) [Mass/Vol] 2.7 g/dL Normal 2.2-4.2 [facility] Comment on above: Performed By: #### L 2100.0000, L506.1001, L500.4050, L501.9520, L5500.0550, L501.6710, L503.0106, L100.0100 #### [facility] [address] [place], [address] Glucose [Mass/Vol] 120 mg/dL High 70-99 [facility] Comment on above: Performed By: #### L 2100.0000, L506.1001, L500.4050, L501.9520, L5500.0550, L501.6710, L503.0106, L100.0100 #### [facility] [address] [place], [address] Potassium [Moles/Vol] 3.3 mmol/L Normal 3.3-5.1 [facility] Comment on above: Performed By: #### L 2100.0000, L506.1001, L500.4050, L501.9520, L5500.0550, L501.6710, L503.0106, L100.0100 #### [facility] [address] [place], [address] Sodium [Moles/Vol] 137 mmol/L Normal 133-145 [facility] Comment on above: Performed By: #### L 2100.0000, L506.1001, L500.4050, L501.9520, L5500.0550, L501.6710, L503.0106, L100.0100 #### [facility] [address] [place], [address] T PROT 7.3 g/dL Normal 5.9-8.4 [facility] Comment on above: Performed By: #### L 2100.0000, L506.1001, L500.4050, L501.9520, L5500.0550, L501.6710, L503.0106, L100.0100 #### [facility] [address] [place], [address] Urea nitrogen [Mass/Vol] 9 mg/dL Normal 4-19 [facility] Comment on above: Performed By: #### L 2100.0000, L506.1001, L500.4050, L501.9520, L5500.0550, L501.6710, L503.0106, L100.0100 #### [facility] [address] [place], [address] Gastroenterology Visit Repor ton 04-09-2025 Gastroenterology Visit Report [facility] [address] [place] [address] OFFICE VISIT Date of Service: 04/09/25 MR#: [id number] Acct: [id number] Name: ZULEIMA JOHNSON Rep #: [id number] : 1990 Provider: REBECCA mae Age/Sex: 34/F Location: [facility] Status: Signed Intake Vital Signs 04/13/24 07:51 Height 5 ft 11 in Intake Visit Reasons: CHRONIC NAUSEA AND DIARRHEA Chief Complaint: GERD, NAUSEA Allergies shellfish derived (seafood - shellfish) Adverse Reaction (Mild, Verified 04/09/25 14:25) Hives Medications ???Medication ???Instructions ???Recorded ???Confirmed ???Type cetirizine 10 mg tablet (Zyrtec) 10 mg PO DAILY PRN allergy symptom s 11/20/23 04/05/25 History albuterol sulfate 90 mcg/actuation 2 puff inhalation Q4-6H PRN 03/1004/05/25 History aerosol inhaler (Ventolin HFA) cariprazine 1.5 mg capsule 1.5 mg PO QDAY 04/05/25 04/05/25 H istory (Vraylar) dextromethorphan IR 45 1 tab PO BID 04/05/25 04/05/25 His tory mg-bupropion ER 105 mg biphasic tablet (Auvelity) gabapentin 600 mg tablet 600 mg PO TID 04/05/25 04/05/25 Hi story naltrexone 50 mg tablet 50 mg PO QDAY 04/05/25 04/05/25 Hi story olanzapine 2.5 mg tablet 2.5 mg PO QHS 04/05/25 04/05/25 Hi story ondansetron HCl 4 mg tablet 4 mg PO Q8H #30 tabs 04/09/25 080 10/03 Rx PFSH Medical History Wears glasses Alcohol use Marijuana use Electronic cigarette use Smoker Generalized anxiety disorder Major depressive disorder, recurrent severe without psychotic features Surgical History Hx of colonoscopy Hx of LASIK Social History Smoking Status: Current every day smoker tobacco type: e-cigarettes HPI HPI Chief Complaint: GERD, NAUSEA Details: ZULEIMA JOHNSON, is a 34 F who presents to the office today for establishment with [facility] regarding concerns of nausea and diarrhea. 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 She reports a daily nausea and diarrhea, with 3 BM in the first hour she is awake. She reports associated severe lower abdominal cramping with occasional urgency. She reports nausea, mild, throughout the day. She is scheduled with the [facility] for an EGD on 04/13/2025. She states her last colonoscopy was done 2 to 3 years ago in [place], [place]. She reports constipation just prior to her menses. She denies family history of colon cancer or autoimmune diseases. She denies reflux, abdominal bloating, hematochezia, and melena. She denies having any imaging done recently. She denies change in water supply, known ill persons, or exposure to livestock. ROS Const Constitutional: Positive for fatigue and weight change; No fever(s) ENT ENT: No difficulty swallowing Gastro GI: Positive for abdominal pain, bloating, change in bowel habits, constipation, diarrhea, excessive flatus and nausea/dyspepsia; No belching, change in stool character, coffee ground emesis, cramping, heartburn, difficulty swallowing, feeling full early, incontinent of stools, Vomiting blood/hematemesis, Blood in stool, loose stools, Black,tarry stools, pain with swallowing, vomiting or other Musc Musculoskeletal: No joint pain Skin Skin: No yellowing of the eye or itchy eyes Psych Psychiatric: Positive for anxiety, Positive for depression and Positive for inattentiveness Endo Endocrine: Positive for fatigue and weight change Aller/Imm Allergy/Immunologic: No itchy eyes Ivan/Lymp Hematologic/Lymphatic : No easy bleeding or easy bruising Exam Const General: cooperative, comfortable and no acute distress Nutritional Appearance: average body habitus Orientation: alert and oriented x3 HENMT Head: normal to inspection Ears: hearing grossly normal bilaterally Eyes General: appearance normal, both eyes and all related structures Neck Neck: normal visual inspection and full ROM Chest Chest palpation inspection: normal inspection of the chest Resp Effort Inspection: normal respiratory effort and able to speak in complete sentences GI Inspection: normal to inspection Skin General: no rashes or lesions noted Neuro General: patient alert, patient oriented x3 and moves all extremities Cognition: normal cognition Speech: speech normal Gait: normal gait Extrem General: full ROM Psych Appearance: grossly normal Mental Status: mental status grossly normal Mood: congruent mood Judgment: judgment good Assessment and Plan Assessment and Plan (1) Nausea: Status: Acute (2) Diarrhea: Status: Acute Qualifiers: Diarrhea type: unspecified type Qualified Code(s): R19.7 - Diarrh (more content not included)... Normal [facility] Thyroid Stim Hormone (TSH)on 04-09-2025 TSH 1.910 uIU/mL Normal 0.300-4.200 [facility] Comment on above: Performed By: #### L 2100.0000, L506.1001, L500.4050, L501.9520, L5500.0550, L501.6710, L503.0106, L100.0100 #### [facility] [address] [place], [place], [address] Vitamin B12on 04-09-2025 Cobalamin (Vitamin B12) [Mass/Vol] 569 pg/mL Normal 180-914 [facility] Comment on above: Performed By: #### L 2100.0000, L506.1001, L500.4050, L501.9520, L5500.0550, L501.6710, L503.0106, L100.0100 #### [facility] [address] [place], [place], [address] Vitamin D,25 Hydroxyon 04-09 Vitamin D 25-OH 22.0 ng/mL Low 30-100 [facility] Comment on above: Result Comment: Sharmila min D Status Deficiency: <20 ng/mL (50nmol/L) Insufficiency: 20-30 ng/mL (50-75 nmol/L) Sufficiency: 30-100 ng/mL (75-250 nmol/L) Toxicity: >100 ng/mL (>250 nmol/L) Performed By: #### L 2100.0000, L506.1001, L500.4050, L501.9520, L5500.0550, L501.6710, L503.0106, L100.0100 #### [facility] [place], [address] 25(OH)D3 [facility] 2023 25-hydroxyvitamin D3 [Mass/Vol] 17.0 ng/mL Low 31.0-80.0 [facility] Comment on above: Order Comment: Speci men Type: BLOOD SPECIMEN Ordering Facility: [facility] Address: [address] [place] [address], [place] [id number] Result Comment: Clas sification of 25 [place] Vitamin D status: Deficiency/Insufficiency: < or = 30 ng/ml. Sufficiency/Optimal Levels: 31-80 ng/mL Toxicity: > 100 ng/mL. Test performed by chemiluminescent immunoassay. Performed By: #### 1 989-3 #### [facility] CLIA [id number] [address] [place] [address] [place] CBC W Auto Differential pane l (Bld)on 11-15-2023 Basophils (Bld) [#/Vol] 0.06 10*3/uL Normal <0.11 [facility] Comment on above: Order Comment: Speci men Type: BLOOD SPECIMEN Ordering Facility: [facility] Address: [address] [place], [place] [id number] Performed By: #### 5 7021-8 #### [facility] CLIA [id number] [address] [place] [address] [place] Basophils/100 WBC (Bld) 1.0 % Normal [facility] Comment on above: Order Comment: Speci men Type: BLOOD SPECIMEN Ordering Facility: [facility] Address: [address] [place], [place] [id number] Performed By: #### 5 7021-8 #### [facility] CLIA [id number] [address] [place] [address] [place] Differential cell count method Nom (Bld) Auto Normal [facility] Comment on above: Order Comment: Speci men Type: BLOOD SPECIMEN Ordering Facility: [facility] Address: [address] [place] [address], [place] [address] Performed By: #### 5 7021-8 #### [facility] CLIA [id number] [address] [place] [address] [place] Eosinophils (Bld) [#/Vol] 0.32 10*3/uL Normal <0.46 [facility] Comment on above: Order Comment: Speci men Type: BLOOD SPECIMEN Ordering Facility: [facility] Address: [address] [place] [address], [place] [address] Performed By: #### 5 7021-8 #### [facility] CLIA [id number] [address] [place] [address] [place] Eosinophils/100 WBC (Bld) 5.5 % Normal [facility] Comment on above: Order Comment: Speci men Type: BLOOD SPECIMEN Ordering Facility: [facility] Address: [address] [place] [address] Performed By: #### 5 7021-8 #### [facility] CLIA [id number] [address] [place] [address] [place] Erythrocyte distribution width (RBC) [Ratio] 12.6 % Normal 11.5-15.0 [facility] Comment on above: Order Comment: Speci men Type: BLOOD SPECIMEN Ordering Facility: [facility] Address: [address] [place] [address] Performed By: #### 5 7021-8 #### [facility] CLIA [id number] [address] [place] [address] [place] Hematocrit (Bld) [Volume fraction] 44.9 % Normal 36.0-46.0 [facility] Comment on above: Order Comment: Speci men Type: BLOOD SPECIMEN Ordering Facility: [facility] Address: [address] [place] [address] Performed By: #### 5 7021-8 #### [facility] CLIA [id number] [address] [place] [address] [place] Hemoglobin (Bld) [Mass/Vol] 15.8 g/dL High 11.5-15.5 [facility] Comment on above: Order Comment: Speci men Type: BLOOD SPECIMEN Ordering Facility: [facility] Address: [address] [place] [address] Performed By: #### 5 7021-8 #### [facility] CLIA [id number] [address] [place] [address] [place] Immature granulocytes (Bld) [#/Vol] 10*3/uL Normal <0.10 [facility] Comment on above: Order Comment: Speci men Type: BLOOD SPECIMEN Ordering Facility: [facility] Address: [address] [place] [address] Performed By: #### 5 7021-8 #### [facility] CLIA [id number] [address] [place] [address] [place] Immature granulocytes/100 WBC (Bld) 0.2 % Normal [facility] Comment on above: Order Comment: Speci men Type: BLOOD SPECIMEN Ordering Facility: [facility] Address: [address] [place] [address] Performed By: #### 5 7021-8 #### [facility] CLIA [id number] [address] [place] [address] [place] Lymphocytes (Bld) [#/Vol] 2.21 10*3/uL Normal 1.00-4.00 [facility] Comment on above: Order Comment: Speci men Type: BLOOD SPECIMEN Ordering Facility: [facility] Address: [address] [place] [address] Performed By: #### 5 7021-8 #### [facility] CLIA [id number] [address] [place] [address] [place] Lymphocytes/100 WBC (Bld) 37.9 % Normal [facility] Comment on above: Order Comment: Speci men Type: BLOOD SPECIMEN Ordering Facility: [facility] Address: [address] [place] [address] Performed By: #### 5 7021-8 #### [facility] CLIA [id number] [address] [place] [address] [place] MCH (RBC) [Entitic mass] 31.2 pg Normal 26.0-34.0 [facility] Comment on above: Order Comment: Speci men Type: BLOOD SPECIMEN Ordering Facility: [facility] Address: [address] [place] [address] Performed By: #### 5 7021-8 #### [facility] CLIA [id number] [address] [place] [address] [place] MCHC (RBC) [Mass/Vol] 35.2 g/dL Normal 30.5-36.0 [facility] Comment on above: Order Comment: Speci men Type: BLOOD SPECIMEN Ordering Facility: [facility] Address: [address] [place] [address] Performed By: #### 5 7021-8 #### [facility] CLIA [id number] [address] [place] [address] [place] MCV (RBC) [Entitic vol] 88.7 fL Normal 80.0-100.0 [facility] Comment on above: Order Comment: Speci men Type: BLOOD SPECIMEN Ordering Facility: [facility] Address: [address] [place] [address] Performed By: #### 5 7021-8 #### [facility] CLIA [id number] [address] [place] [address] [place] Monocytes (Bld) [#/Vol] 0.37 10*3/uL Normal <0.87 [facility] Comment on above: Order Comment: Speci men Type: BLOOD SPECIMEN Ordering Facility: [facility] Address: [address] [place] [address], [place] [address] Performed By: #### 5 7021-8 #### [facility] CLIA [id number] [address] [place] [address] [place] Monocytes/100 WBC (Bld) 6.3 % Normal [facility] Comment on above: Order Comment: Speci men Type: BLOOD SPECIMEN Ordering Facility: [facility] Address: [address] [place] [address], [place] [address] Performed By: #### 5 7021-8 #### [facility] CLIA [id number] [address] [place] [address] [place] Neutrophils (Bld) [#/Vol] 2.86 10*3/uL Normal 1.45-7.50 [facility] Comment on above: Order Comment: Speci men Type: BLOOD SPECIMEN Ordering Facility: [facility] Address: [address] [place] [address], [place] [address] Performed By: #### 5 7021-8 #### [facility] CLIA [id number] [address] [place] [address] [place] Neutrophils/100 WBC (Bld) 49.1 % Normal [facility] Comment on above: Order Comment: Speci men Type: BLOOD SPECIMEN Ordering Facility: [facility] Address: [address] [place] [address], [place] [address] Performed By: #### 5 7021-8 #### [facility] CLIA [id number] [address] [place] [address] [place] Nucleated RBC (Bld) [#/Vol] 10*3/uL Normal <0.01 [facility] Comment on above: Order Comment: Speci men Type: BLOOD SPECIMEN Ordering Facility: [facility] Address: [address] [place] [address], [place] [address] Performed By: #### 5 7021-8 #### [facility] CLIA [id number] [address] [place] [id number] [place] Nucleated RBC/100 WBC (Bld) [Ratio] 0.0 /100 WBC Normal [facility] Comment on above: Order Comment: Speci men Type: BLOOD SPECIMEN Ordering Facility: [facility] Address: [address] [place] [address] Performed By: #### 5 7021-8 #### [facility] CLIA [id number] [address] [place] [address] [place] Platelet mean volume (Bld) [Entitic vol] 10.2 fL Normal 9.0-12.7 [facility] Comment on above: Order Comment: Speci men Type: BLOOD SPECIMEN Ordering Facility: [facility] Address: [address] [place] [address] Performed By: #### 5 7021-8 #### [facility] CLIA [id number] [address] [place] [address] [place] Platelets (Bld) [#/Vol] 234 10*3/uL Normal 150-400 [facility] Comment on above: Order Comment: Speci men Type: BLOOD SPECIMEN Ordering Facility: [facility] Address: [address] [place] [address] Performed By: #### 5 7021-8 #### [facility] CLIA [id number] [address] [place] [address] [place] RBC (Bld) [#/Vol] 5.06 10*6/uL Normal 3.90-5.20 [facility] Comment on above: Order Comment: Speci men Type: BLOOD SPECIMEN Ordering Facility: [facility] Address: [address] [place] [address] Performed By: #### 5 7021-8 #### [facility] CLIA [id number] [address] [place] [address] [place] WBC (Bld) [#/Vol] 5.83 10*3/uL Normal 3.70-11.00 [facility] Comment on above: Order Comment: Speci men Type: BLOOD SPECIMEN Ordering Facility: [facility] Address: [address] [place] [address], [place] [address] Performed By: #### 5 7021-8 #### [facility] CLIA [id number] [address] [place] [id number] [place] Comprehensive metabolic 2000 panelon 11-15-2023 Albumin [Mass/Vol] 4.6 g/dL Normal 3.9-4.9 [facility] Comment on above: Order Comment: Speci men Type: BLOOD SPECIMEN Ordering Facility: [facility] Address: [address] [place] [address], [place] [address] Performed By: #### 2 132-9, 07325-1, 3016-3, 10201-1 #### [facility] CLIA [id number] [address] [place] [address] [place] ALP [Catalytic activity/Vol] 67 U/L Normal 34-123 [facility] Comment on above: Order Comment: Speci men Type: BLOOD SPECIMEN Ordering Facility: [facility] Address: [address] [place] [address] Performed By: #### 2 132-9, 82920-8, 3016-3, 59959-8 #### [facility] CLIA [id number] [address] [place] [address] [place] ALT [Catalytic activity/Vol] 16 U/L Normal 7-38 [facility] Comment on above: Order Comment: Speci men Type: BLOOD SPECIMEN Ordering Facility: [facility] Address: [address] [place] [address], [place] [address] Performed By: #### 2 132-9, 36204-4, 3016-3, 93700-6 #### [facility] CLIA [id number] [address] [place] [id number] [place] Anion gap [Moles/Vol] 11 mmol/L Normal 9-18 [facility] Comment on above: Order Comment: Speci men Type: BLOOD SPECIMEN Ordering Facility: [facility] Address: [address] [place] [address], [place] [address] Performed By: #### 2 132-9, 45455-5, 3015-3, 19401-9 #### [facility] CLIA [id number] [address] [place] [address] [place] AST [Catalytic activity/Vol] 18 U/L Normal 13-35 [facility] Comment on above: Order Comment: Speci men Type: BLOOD SPECIMEN Ordering Facility: [facility] Address: [address] [place] [address], [place] [address] Performed By: #### 2 132-9, 77059-2, 3015-3, 69751-1 #### [facility] CLIA [id number] [address] [place] [address] [place] Bilirubin [Mass/Vol] 0.3 mg/dL Normal 0.2-1.3 [facility] Comment on above: Order Comment: Speci men Type: BLOOD SPECIMEN Ordering Facility: [facility] Address: [address] [place] [address], [place] [address] Performed By: #### 2 132-9, 07419-9, 3015-3, 94818-6 #### [facility] CLIA [id number] [address] [place] [address] [place] Calcium [Mass/Vol] 9.5 mg/dL Normal 8.5-10.2 [facility] Comment on above: Order Comment: Speci men Type: BLOOD SPECIMEN Ordering Facility: [facility] Address: [address] [place] [address], [place] [address] Performed By: #### 2 132-9, 49731-5, 3015-3, 01723-1 #### [facility] CLIA [id number] [address] [place], [place] [address] [place] Chloride [Moles/Vol] 103 mmol/L Normal 97-105 [facility] Comment on above: Order Comment: Speci men Type: BLOOD SPECIMEN Ordering Facility: [facility] Address: [address] [place] [address] Performed By: #### 2 132-9, 78698-3, 3016-3, 69233-3 #### [facility] CLIA [id number] [address] [place] [address] [place] CO2 [Moles/Vol] 26 mmol/L Normal 22-30 [facility] Comment on above: Order Comment: Speci men Type: BLOOD SPECIMEN Ordering Facility: [facility] Address: [address] [place] [address] Performed By: #### 2 132-9, 81971-7, 3016-3, 25145-4 #### [facility] CLIA [id number] [address] [place] [address] [place] Creatinine [Mass/Vol] 0.77 mg/dL Normal 0.58-0.96 [facility] Comment on above: Order Comment: Speci men Type: BLOOD SPECIMEN Ordering Facility: [facility] Address: [address] [place] [address] Performed By: #### 2 132-9, 02478-5, 3016-3, 59583-3 #### [facility] CLIA [id number] [address] [place] [address] [place] Creatinine and Glomerular filtration rate.predicted panel (S/P/Bld) 106 mL/min/1.73m??? Normal >=60 [facility] Comment on above: Order Comment: Speci men Type: BLOOD SPECIMEN Ordering Facility: [facility] Address: [address] [place] [address] Result Comment: [place] mated Glomerular Filtration Rate [...] actual GFR. Performed By: #### 2 132-9, 83901-5, 6-3, 83368-3 #### [facility] CLIA [id number] [address] [address] [place] Glucose [Mass/Vol] 96 mg/dL Normal 74-99 [facility] Comment on above: Order Comment: Sadaf vazquez Type: BLOOD SPECIMEN Ordering Facility: [facility] Address: [address] [place] [address], [place] [address] Result Comment: The [place] [employer] Association (ADA) provides guidance for cutoff [...] Standards of Medical Care in Diabetes 2016, [place] [employer]. Diabetes Care. 2016.39(Suppl 1). Performed By: #### 2 132-9, 65341-0, 3015-3, 85314-9 #### [facility] CLIA [id number] [address] [address] [place] Potassium [Moles/Vol] 4.1 mmol/L Normal 3.7-5.1 [facility] Comment on above: Order Comment: Sadaf vazquez Type: BLOOD SPECIMEN Ordering Facility: [facility] Address: [address] [place] [address], [place] [address] Performed By: #### 2 132-9, 66812-0, 6-3, 39267-3 #### [facility] CLIA [id number] [address] [address] [place] Protein [Mass/Vol] 7.1 g/dL Normal 6.3-8.0 [facility] Comment on above: Order Comment: Speci men Type: BLOOD SPECIMEN Ordering Facility: [facility] Address: [address] [place] [address], [place] [address] Performed By: #### 2 132-9, 62342-1, 3016-3, 02692-2 #### [facility] CLIA [id number] [address] [place] [address] [place] Sodium [Moles/Vol] 140 mmol/L Normal 136-144 [facility] Comment on above: Order Comment: Speci men Type: BLOOD SPECIMEN Ordering Facility: [facility] Address: [address] [place] [address] Performed By: #### 2 132-9, 08052-4, 3016-3, 64404-4 #### [facility] CLIA [id number] [address] [place] [address] [place] Urea nitrogen [Mass/Vol] 9 mg/dL Normal 7-21 [facility] Comment on above: Order Comment: Speci men Type: BLOOD SPECIMEN Ordering Facility: [facility] Address: [address] [place] [address], [place] [address] Performed By: #### 2 132-9, 64088-8, 3016-3, 92217-8 #### [facility] CLIA [id number] [address] [place] [address] [place] Iron and Iron binding capaci ty panelon 11-15-2023 Iron [Mass/Vol] 93 ug/dL Normal 41-186 [facility] Comment on above: Order Comment: Speci men Type: BLOOD SPECIMEN Ordering Facility: [facility] Address: [address] [place] [address], [place] [address] Performed By: #### 2 132-9, 22366-6, 3016-3, 53229-6 #### [facility] CLIA [id number] [address] [place] [address] [place] Iron binding capacity [Mass/Vol] 288 ug/dL Normal 232-386 [facility] Comment on above: Order Comment: Sadaf vazquez Type: BLOOD SPECIMEN Ordering Facility: [facility] Address: [address] [place] [address] Performed By: #### 2 132-9, 26980-8, 3016-3, 79744-9 #### [facility] CLIA [id number] [address] [place], [place] [address] [place] Iron/TIBC [Molar ratio] 32.3 % Normal 15.0-57.0 [facility] Comment on above: Order Comment: Sadaf vazquez Type: BLOOD SPECIMEN Ordering Facility: [facility] Address: [address] [place] [address] Performed By: #### 2 132-9, 25633-1, 3016-3, 31276-3 #### [facility] CLIA [id number] [address] [place] [address] [place] TSH SerPl-aCncon 11-15-2023 TSH Qn 1.930 m[IU]/L Normal 0.270-4.200 [facility] Comment on above: Order Comment: Sadaf vazquez Type: BLOOD SPECIMEN Ordering Facility: [facility] Address: [address] [place] [address] Result Comment: If t he patient is , TSH reference range varies by gestational period: First Trimester (weeks 9-12): 0.180-2.990 mIU/L Second Trimester: 0.110-3.980 mIU/L Third Trimester: 0.480-4.710 mIU/L Dima Pagan et al. A Practical Approach for the Verifications and Determination of Site- and Trimester-Specific Reference Intervals for Thyroid Function tests in . Thyroid, 2019:29:3:412-420. Freddy Mares, et al. 2017 Guidelines of the [place] Thy[employer] Association for the Diagnosis and Management of Thyroid Disease during and the . Thyroid, 2017:27:3:315-389. Performed By: #### 2 132-9, 65560-6, 3016-3, 83410-2 #### [facility] CLIA [id number] [address] [place] [id number] [place] Vit B12 SerPl-mCncon 024 Cobalamin (Vitamin B12) [Mass/Vol] 546 pg/mL Normal 232-1245 [facility] Comment on above: Order Comment: Speci men Type: BLOOD SPECIMEN [facility] Address: [address] [place] [address] Performed By: #### 2 132-9, 53073-9, 3016-3, 36304-4 #### [facility] CLIA [id number] [address] [place] [address] [place] Encounters Encounter Date Encounter Type Care Provider Facility Start: 05-13-2025 ambulatory Mehdi Vivas Facility :[facility] Start: 05-11-2025 Encounter for other preprocedural examination Mehdi Vivas [facility] Start: 04-09-2025 End: 04-10-2025 ambulatory Neil C[facility]antes [facility] Facility:[facility] Start: 04-09-2025 End: 04-09-[facility] Start: 11-15-2023 End: 11-16-2023 ambulatory RICHARD ROBLERO Facility:[facility] Payers Date Payer Category Payer Self-pay 2025 Unknown [id number] 2019 Unknown [id number] Unknown [id number] Unknown [id number] Unknown [id number] Unknown [id number] Summary Purpose Family History No Family History Records FoundNo Family History Records Found Advance Directives No Advanced Directives Records FoundNo Advanced Directives Records Found Additional Source Comments INFORMATION SOURCE (unrecogn ized section and content) DATE CREATED AUTHOR 11/17/2023 [facility] DATE CREATED AUTHOR AUTHOR'S JANINE BALDERAS 05/12/2025 [facility] FOR RECORDS PERTAINING TO PATIENTS WHO ARE [...] BE BASED ON THE PRIMARY CLINICAL RECORDS. [employer] provides no warranty or guarantee of the accuracy or completeness of information in this document.
--- NOTE | 2025-05-13 06:42 | PCM.HP.STD ---
HPI - General General Date of Admission: 05/13/25 Date of Service: 05/13/25 Chief Complaint: nausea and diarrhea HPI Narrative : ZULEIMA JOHNSON, is a 34 F who presents regarding concerns of nausea and diarrhea. 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 She reports a daily nausea and diarrhea, with 3 BM in the first hour she is awake. She reports associated severe lower abdominal cramping with occasional urgency. She reports nausea, mild, throughout the day. She is scheduled with the [facility] for an EGD on 04/13/2025. She states her last colonoscopy was done 2 to 3 years ago in [place], [place]. She reports constipation just prior to her menses. She denies family history of colon cancer or autoimmune diseases. She denies reflux, abdominal bloating, hematochezia, and melena. She denies having any imaging done recently. She denies change in water supply, known ill persons, or exposure to livestock. FORMERLY [facility], [facility] Medical History Easy bruising Seasonal allergies Heartburn Asthma Wears glasses Alcohol use Marijuana use Smoker Generalized anxiety disorder Major depressive disorder, recurrent severe without psychotic features Home Medications ?Medication ?Instructions ?Recorded ?Last Taken ?Type cetirizine 10 mg tablet (Zyrtec) 10 mg PO DAILY PRN allergy symptoms 11/20/23 Unknown History albuterol sulfate 90 mcg/actuation 2 puff inhalation Q4-6H PRN 04/05/25 Unknown History aerosol inhaler (Ventolin HFA) shortness of breath or wheezing dextromethorphan IR 45 1 tab PO BID 04/05/25 Unknown History mg-bupropion ER 105 mg biphasic tablet (Auvelity) gabapentin 600 mg tablet 600 mg PO TID 04/05/25 Unknown History naltrexone 50 mg tablet 50 mg PO QDAY PRN ETOH 04/05/25 Unknown History olanzapine 2.5 mg tablet 2.5 mg PO QHS PRN anxiety 04/05/25 Unknown History Allergy/AdvReac Type Severity Reaction Status Date / Time shellfish derived (seafood AdvReac Mild Hives Verified 05/13/25 06:42 - shellfish) Surgical History History of esophagogastroduodenoscopy (EGD) Hx of colonoscopy Hx of LASIK Social History Smoking Status: Current every day smoker tobacco type: cigarettes ROS Constitutional Constitutional: Denies fatigue, fever(s), poor appetite, weight gain or weight loss Gastrointestinal Gastrointestinal: Denies belching, bloating, change in bowel habits, change in stool character, chewing difficulty, coffee ground emesis, constipation, cramping, diarrhea, dyspepsia, dysphagia, early satiety, excessive flatus, fecal incontinence, heartburn, hematemesis, hematochezia, hemorrhoids, loose stools, melena, nausea, odynophagia, rectal bleeding, tenesmus, vomiting or weight changes Physical Exam Const alert, oriented x3, no apparent distress and healthy appearing General Appearance: cooperative GI normal to inspection, nondistended, normoactive bowel sounds, soft to palpation, non-tender and non-distended Percussion: normal to percussion Rectal Exam: deferred Assessment & Plan Assessment/Plan (1) Nausea: (2) Diarrhea: QUALIFIERS: Diarrhea type: unspecified type Qualified Code(s): R19.7 - Diarrhea, unspecified PLAN: Assessment and Plan Assessment and Plan (1) Nausea: Status: Acute (2) Diarrhea: Status: Acute Qualifiers: Diarrhea type: unspecified type Qualified Code(s): R19.7 - Diarrhea, unspecified (3) Constipation: Status: Acute Qualifiers: Constipation type: unspecified constipation type Qualified Code(s): K59.00 - Constipation, unspecified (4) GERD (gastroesophageal reflux disease): Status: Acute Qualifiers: Esophagitis presence: esophagitis presence not specified Qualified Code(s): K21.9 - Gastro-esophageal reflux disease without esophagitis Orders: Orders Allergen, Food Profile 14 04/09/25 K59.00 - Constipation, unspecified, R11.0 - Nausea, R19.7 - Diarrhea, unspecified Calprotectin, Stool 04/10/25 K59.00 - Constipation, unspecified, R11.0 - Nausea, R19.7 - Diarrhea, unspecified CBC W/Diff, Automated 04/09/25 K59.00 - Constipation, unspecified, R11.0 - Nausea, R19.7 - Diarrhea, unspecified Comprehensive Metabolic Profil 04/09/25 K59.00 - Constipation, unspecified, R11.0 - Nausea, R19.7 - Diarrhea, unspecified CRP 04/09/25 K59.00 - Constipation, unspecified, R11.0 - Nausea, R19.7 - Diarrhea, unspecified IBD Expanded Profile 04/09/25 K59.00 - Constipation, unspecified, R11.0 - Nausea, R19.7 - Diarrhea, unspecified Pancreatic Elastase, Fecal 04/10/25 K59.00 - Constipation, unspecified, R11.0 - Nausea, R19.7 - Diarrhea, unspecified Thyroid Stim Hormone (TSH) 04/09/25 K59.00 - Constipation, unspecified, R11.0 - Nausea, R19.7 - Diarrhea, unspecified Vitamin B12 04/09/25 K59.00 - Constipation, unspecified, R11.0 - Nausea, R19.7 - Diarrhea, unspecified Vitamin D,25 Hydroxy 04/09/25 K59.00 - Constipation, unspecified, R11.0 - Nausea, R19.7 - Diarrhea, unspecified H. PYLORI STOOL AG 04/10/25 K21.9 - Gastro-esophageal reflux disease without esophagitis, R11.0 - Nausea Medications: New ondansetron HCl 4 mg PO Q8H 30 tabs 2RF Plan ZULEIMA JOHNSON, is a 34 F who presents to the office today for establishment with [facility] regarding concerns of nausea and diarrhea. Discussed care plan with her. Blood for food allergies, IBD, thyroid, vitamin B12, vitamin D Stool for H. pylori, pancreatic elastase, fecal calprotectin Refill ondansetron 4 mg p.o. every 8 hours as needed nausea Consider colonoscopy Await EGD findings Office follow-up for results
[2025-05-13] MEDS: Lactated Ringers 1,000 ML 15 ML IV (06:49)
[2025-05-13 06:54] LABS: Internal QC Validated? YES +Cl - CLEAR BKGD; Pregnancy, Urine Negative Negative
[2025-05-13 06:55] LABS: Record Kit Lot#,Urine Preg 0000947241
--- NOTE | 2025-05-13 07:22 | PRE.ANES_ITS ---
ASA Classification* ASA Classification ASA Classification: 2 Assessment & Plan Anesthesia* Anesthesia Assessment Anesthesia Assessment: Discussed sedation and/or anesthesia options, risks, benefits, and alternatives with patient/parents/legal guardian/POA. Questions invited. The patient/parents/legal guardian/POA seems to understand and agrees to proceed with anesthesia plan. Reviewed the physical assessment, medical history, allergy history and patient home medications list prior to surgery/procedure/anesthetic and documented any changes. Performed airway and anesthesia risk assessments. Anesthesia Type Anesthesia Type: MAC History Source History Obtained from:: Patient and Chart Anesthesia Focused Assessment* Temperature: 96.9 F Pulse Rate: 85 Blood Pressure: 107/79 Respiratory Rate: 16 Pulse Ox: 100 Airway Assessment Mouth opens: >3 cm Mallampati Score: II Teeth Condition: Intact Labs Anesthesia Preop lab: CBC WBC 9.3 K/mm3 (4.4-11.0) 04/09/25 15:17 04/09/25 RBC 4.99 M/mm3 (4.2-5.4) 04/09/25 15:17 04/09/25 Hgb 15.7 g/dL (12.0-15.0) H 04/09/25 15:17 5 Hct 42.2 % (37-47) 04/09/25 15:17 04/09/25 Plt Count 226 K/mm3 (150-450) 04/09/25 15:17 04/09/25 CHEMISTRY Potassium 3.3 mmol/L (3.3-5.1) 04/09/25 15:17 04/09/25 Sodium 137 mmol/L (133-145) 04/09/25 15:17 04/09/25 BUN 9 mg/dL (4-19) 04/09/25 15:17 04/09/25 Creatinine 0.70 mg/dL (0.70-1.20) 04/09/25 15:17 04/09/25 Glucose 120 mg/dL (70-99) H 04/09/25 15:17 04/09/25 TSH 1.910 uIU/mL (0.300-4.200) 04/09/25 15:17 10/03 COAG Urine Test Negative Negative 05/13/25 06:32 05/13/25 Pre-Assessment Diagnosis/Proposed Procedure Planned Operative Procedure(s): COLONOSCOPY Anesthesia History 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 When Was Last Pacemaker Check QUESTION #4 FULL TEXT: You/Your Family Experience fever (hyperthermia) with Anesthesia Last Oral Intake Last Oral intake: Last Oral Intake NPO since 03:00 05/13/25 06:43 Meds taken in AM with sips of water? Meds patient instructed to take am of surgery PONV PONV - php mysql web developer: PONV - php mysql web developer Female Yes 05/07/25 16:12 HX of Motion Sickness No 05/07/25 16:12 HX of N/V After Surgery No 05/07/25 16:12 Non-Smoker No 05/07/25 16:12 Duration of Surgery greater No 05/07/25 16:12 than 60 minutes Number of Risk Factors 1 05/07/25 16:12 PONV Score Low Risk 05/07/25 16:12 Height & Weight Height & Weight: Anesthesia: Height & Weight Height 5 ft 11 in 05/13/25 06:43 Weight: 72.121 kg 05/13/25 06:43 Body Mass Index (BMI) 22.1 05/13/25 06:43 Respiratory Assessment Respiratory Assessment - php mysql web developer: Respiratory Tract Infection Hx - php mysql web developer Hx Respiratory Tract Infection No 05/07/25 16:12 STOP Sleep Apnea STOP Sleep Apnea - php mysql web developer: STOP Sleep Apnea - php mysql web developer Hx Hypertension No 05/07/25 16:12 Hx Sleep Apnea No 05/07/25 16:12 CPAP BIPAP Do you snore loudly (louder No 05/07/25 16:12 than talking or can be heard Do you often feel tired/ No 05/07/25 16:12 fatigued/ sleepy during daytime? Has anyone observed you stop No 05/07/25 16:12 breathing during sleep? STOP Results Negative 05/07/25 16:12 QUESTION #5 FULL TEXT : Do you snore loudly (louder than talking or can be heard through closed doors)? 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 Specify any problems Hx of Preganancy in last 3 No 05/07/25 16:12 Months Nurse Filling Out Transfusion MGRIFFITH 05/07/25 16:12 & Questions: Date: 05/07/25 05/07/25 16:12 Time: 16:14 05/07/25 16:12 Patient unable to answer at this time (ie. confused, unrespo /Reproduction History /Reproductive History - php mysql web developer: /Reproductive Hx- php mysql web developer Hx Now No 05/07/25 16:12 Gestational Age (in weeks): EDC: Hx Hx Para Hx Section SAB No 05/07/25 16:12 Active Medications Active Medications: Current Medications Generic Name Dose Route Start Last Admin Trade Name Freq PRN Reason Stop Dose Admin Lactated Ringer's 1,000 mls @ 15 mls/hr 05/13/25 06:30 05/13/25 06:49 IV 15 mls/hr .Q48H GALE Administration PFSH Medical History Easy bruising Seasonal allergies Heartburn Asthma Wears glasses Alcohol use Marijuana use Smoker Generalized anxiety disorder Major depressive disorder, recurrent severe without psychotic features Home Medications ?Medication ?Instructions ?Recorded ?Last Taken ?Type cetirizine 10 mg tablet (Zyrtec) 10 mg PO DAILY PRN al lergy symptoms 11/20/23 Unknown History albuterol sulfate 90 mcg/actuation 2 puff inhalation Q 4-6H PRN 04/05/25 05/13/25 History aerosol inhaler (Ventolin HFA) shortness of breath or wheezing dextromethorphan IR 45 1 tab PO BID 04/05/25 Unknow n History mg-bupropion ER 105 mg biphasic tablet (Auvelity) gabapentin 600 mg tablet 600 mg PO TID 04/05/25 Unkno wn History naltrexone 50 mg tablet 50 mg PO QDAY PRN ETOH 04/05 Unknown History olanzapine 2.5 mg tablet 2.5 mg PO QHS PRN anxiety Unknown History Allergy/AdvReac Type Severity Reaction Status Date / Time shellfish derived (seafood AdvReac Mild Hives Verified 05/13/25 06:42 - shellfish) Surgical History History of esophagogastroduodenoscopy (EGD) Hx of colonoscopy Hx of LASIK Social History Smoking Status: Current every day smoker tobacco type: cigarettes Review of Systems (Anesthesia) ROS Narrative System reviewed and no additional complaints, except as documented.
--- NOTE | 2025-05-13 07:30 | COLBX_PTH ---
PATIENT: ZULEIMA JOHNSON LOC: EN U#:[id number] AGE/SX: 34/F ROOM: RE05/13/[address]: Dr. Mehdi Vivas DO : 1990 BED: DIS: 05/13/2025 SPEC #: [id number] RECD: 05/13/25 10:30 STATUS: ABRAHAM YAMILKA #: [id number] QUINTEN: 05/13/25 07:[address]: Mehdi Vivas DEPT: SURGICAL PATHOLOGY RECD BY: Ronnie Kraus ENTERED: 05/13/25 14:11 SP TYPE: COLON BX OTHR DR: Haylee Cervantes, [facility], DICTAPHONE MECHANIC-C Tissues: A - Ileum, NOS Procedures: Surgery Specimen Level IV HEADER OPERATION: Colonoscopy with biopsy PRE-OP DIAGNOSIS: Nausea, diarrhea TISSUE SUBMITTED: A- Terminal ileum biopsy MICROSCOPIC DIAGNOSIS A. Terminal ileum, biopsy: No specific pathologic change. MICROSCOPIC DESCRIPTION Slides are reviewed. GROSS DESCRIPTION A. Received in fixative is one container labeled with the patient's name and designated Terminal ileum biopsy. The specimen consists of three irregular fragments of light gonzalez soft tissue that measure 0.4 to 0.6 cm. The specimen is totally submitted in one cassette. AK 05/13/2025 CPT:11949
--- NOTE | 2025-05-13 08:13 | PCM.POST.ANE ---
Anesthesia: Postop Eval I Current Vital Signs Temperature: 97.4 F Pulse Rate: 77 Blood Pressure: 104/54 Respiratory Rate: 16 Pulse Ox: 100 Oxygen Delivery Method: Room Air Assessment Airway patent: Yes Spontaneous unlabored respirations: Yes Mental status: Awake and Calm nausea: No Vomiting: No Anesthesia Complication: No Fluid Hydration Crystalloid volume administer (ml): 500 Total IV fluid infused: 500 Progress Note Anesthesia document: Postop Eval 1 completed: Yes
--- NOTE | 2025-05-13 08:16 | OP.COLON_ITS ---
Patient Name: Nyla Babb Procedure Date: 05/13/2025 7:44 AM Date of : 1990 Age: 34 Procedure: Colonoscopy Indications: Generalized abdominal pain Providers: Mehdi Vivas DO Referring MD: Haylee Cervantes [facility], [employer] Teacher-[employer] Medicines: Monitored Anesthesia Care Patient Profile: This is a 34 year old female. Refer to note in patient chart for documentation of history and physical. Last Colonoscopy: several years ago. Complications: No immediate complications. Procedure: Pre-Anesthesia Assessment: - Prior to the procedure, a History and Physical was performed, and patient medications and allergies were reviewed. The patient is competent. The risks and benefits of the procedure and the sedation options and risks were discussed with the patient. All questions were answered and informed consent was obtained. Patient identification and proposed procedure were verified by the physician in the pre-procedure area. Mental Status Examination: alert and oriented. Airway Examination: normal oropharyngeal airway and neck mobility. Respiratory Examination: clear to auscultation. CV Examination: normal. Prophylactic Antibiotics: The patient does not require prophylactic antibiotics. Prior Anticoagulants: The patient has taken no anticoagulant or antiplatelet agents. ASA Grade Assessment: II - A patient with mild systemic disease. After reviewing the risks and benefits, the patient was deemed in satisfactory condition to undergo the procedure. The anesthesia plan was to use monitored anesthesia care (MAC). Immediately prior to administration of medications, the patient was re-assessed for adequacy to receive sedatives. The heart rate, respiratory rate, oxygen saturations, blood pressure, adequacy of pulmonary ventilation, and response to care were monitored throughout the procedure. The physical status of the patient was re-assessed after the procedure. After I obtained informed consent, the scope was passed under direct vision. Throughout the procedure, the patient's blood pressure, pulse, and oxygen saturations were monitored continuously. The Colonoscope was introduced through the anus and advanced to the terminal ileum. The colonoscopy was performed without difficulty. The patient tolerated the procedure well. The quality of the bowel preparation was adequate. The terminal ileum, ileocecal valve, appendiceal orifice, and rectum were photographed. Scope In: 7:53:42 AM Scope Withdrawal Time 0 hours 9 minutes 6 seconds Scope Out: 8:06:37 AM Total Procedure Duration Time 0 hours 12 minutes 55 seconds Findings: The perianal and digital rectal examinations were normal. The colon (entire examined portion) appeared normal. A patchy area of the terminal ileum was congested. Biopsies were taken with a cold forceps for histology. Verification of patient identification for the specimen was done. Estimated blood loss was minimal. The exam was otherwise without abnormality on direct and retroflexion views. Impression: - The entire examined colon is normal. - Congested mucosa in the terminal ileum. Biopsied. - The examination was otherwise normal on direct and retroflexion views. Recommendation: - Discharge patient to home. - Resume previous diet. - Continue present medications. - Await pathology results. - Repeat colonoscopy (date not yet determined) for screening purposes. Procedure Code(s): --- Professional --- 85775, Colonoscopy, flexible; with biopsy, single or multiple CPT copyright 2021 [employer]. All rights reserved. The codes documented in this report are preliminary and upon hims coder review may be revised to meet current compliance requirements. Mehdi Vivas DO 05/13/2025 8:15:47 AM This report has been signed electronically. Number of Addenda: 0 Note Initiated On: 05/13/2025 7:44 AM
--- NOTE | 2025-05-13 08:16 | OP.PROVAT_ITS ---
05/13/[address] [facility], [employer] Operator-c Re : Colonoscopy procedure for Nyla Babb Dear Billy This procedure was performed on May. My impressions and recommendations are as follows: Impressions : - The entire examined colon is normal. - Congested mucosa in the terminal ileum. Biopsied. - The examination was otherwise normal on direct and retroflexion views. Recommendations : - Discharge patient to home. - Resume previous diet. - Continue present medications. - Await pathology results. - Repeat colonoscopy (date not yet determined) for screening purposes. My findings are described in the full procedure note, which is enclosed. If I can be of further assistance, please feel free to contact me at . Sincerely, Mehdi Vivas, 05/13/2025 8:15:47 AM This report has been signed electronically.
--- NOTE | 2025-05-13 15:17 | PCM.POSTANE2 ---
Anesthesia Postop Eval I Sum Postop Eval Completion status Anesthesia document: Postop Eval 1 completed: Yes Anesthesia Postop Eval I Summary Anesthesia Postop Eval I Summary: Anesthesia Postop Eval I: Assessment Summary Airway patent Yes 05/13/25 08:14 [email or web address] Spontaneous unlabored Yes 05/13/25 08:14 [email or web address] respirations Mental status Awake,Calm 05/13/25 08:14 [email or web address] nausea No 05/13/25 08:14 [email or web address] Vomiting No 05/13/25 08:14 [email or web address] Anesthesia Postop Eval I: Fluid Summary Crystalloid volume administer 500 05/13/25 08:14 [email or web address] (ml) Colloids volume administered ( ml) Blood Product volume administered (ml) Total IV fluid infused 500 05/13/25 08:14 [email or web address] Anesthesia Postop Eval I: Summary Notes Anesthesia Complication No 05/13/25 08:14 [email or web address] Anesthesia Complication Comment: Post-operative progress note Anesthesia: Postop Eval II Evaluation Mental status: Awake and Calm Pain Level: 0 nausea: No Vomiting: No Complications Anesthesia Complication: No
== END 2025-05-13 08:44 | disposition home or self-care (01) ==
LOC: EN 06:13 → AC 06:15
PROVIDERS: Anesthesiology; PCP Nurse Practitioner Family; Referring Provider Nurse Practitioner Family; Visit Provider Internal Medicine Gastroenterology
PROC: 0DJD8ZZ Inspection of Lower Intestinal Tract, Via Natural or Artificial Opening Endoscopic (ICD-10-PCS; CPT 45378; principal; 2025-05-13 07:25)
DX: R19.7 Diarrhea, unspecified (principal); K63.89 Other specified diseases of intestine; K21.9 Gastro-esophageal reflux disease without esophagitis; K59.00 Constipation, unspecified; F41.1 Generalized anxiety disorder; Z79.899 Other long term (current) drug therapy; F17.210 Nicotine dependence, cigarettes, uncomplicated; R11.0 Nausea
CPT/HCPCS: 45380; 81025; 88305; J2405

== ENCOUNTER → 2025-05-26 | Outpatient (CLI) | payer MEDICAID, SELFPAY ==
--- NOTE | 2025-05-26 10:07 | NM_ITS ---
PROCEDURE: GASTRIC EMPTYING STUDY 05/26/2025 REASON FOR EXAM: CHR N/V COMPARISON: None TECHNIQUE: Procedure Code: NMGES Modality: NM Procedure: GASTRIC EMPTYING STUDY The patient ingested a meal of 1 mCi of sulfur colloid in oatmeal. Gastric emptying studies performed over 1 hour.. Anterior and posterior planar images of the upper abdomen were obtained for 1 minute immediately following the meal at 1h 1 hour. Regions of interest were drawn, and a geometric mean was used to calculate a [id number]. Medications taken in the past 24 hours that may affect gastric emptying: None RADIOPHARMACEUTICAL: Sulfur colloid DOSE 1 mCi FINDINGS: Percent activity remaining in stomach: At 1 hour, the stomach empty 61% of the contents which is within normal limits. T1 half is 40 1.8 minutes. NM/Gastric Emptying Study IMPRESSION: Normal gastric emptying study. Reading Location: [id number]
== END | disposition home or self-care (01) ==
LOC: NM 10:04
PROVIDERS: PCP Nurse Practitioner Family
DX: R11.0 Nausea (principal)
CPT/HCPCS: 78264; A9541